=== PATIENT | male | born 2005 | race Two or more races ===

== ENCOUNTER 2025-02-04 20:53 | Emergency (ER) | payer OTHER ==
[~2025-02-04] VITALS: Ht 190.5 cm; Wt 187.7 kg
--- NOTE | 2025-02-04 22:20 | ED.PDOC ---
History of Present Illness HPI Comments 19-year-old male who came to ER for alcohol intoxication. Patient known alcohol drinker, usually drinks 12 pack/day of beer. Has been binge drinking the past 2- 3 weeks. Last alcohol intake was 3 days ago and since then he has been having tremors and visual hallucination, and sensations of "I wanna kill myself". Patient appears anxious at this time. States he wants some help to stop drinking. Chief Complaint: Withdrawal Time Seen by MD: 22:19 Reviewed Notes: Nurses Notes Allergies: Coded Allergies: No Known Drug Allergy (Verified Allergy, Unknown, 02/04/25) Information Source: Patient Mode of Arrival: Ambulatory Severity: Moderate Timing: Days Duration: Intermittent Past Medical History PAST MEDICAL HISTORY: Denies Surgical History: Denies all surgeries Family History Family History: Reviewed,noncontributory to illness Social History Smoker: Non-Smoker Alcohol: Heavy Drugs: Denies Drug Use Lives In: Home Constitutional: denies: chills, diaphoresis, fatigue, fever, malaise, sweats, weakness, others EENTM: denies: blurred vision, double vision, ear bleeding, ear discharge, ear drainage, ear pain, ear ringing, eye pain, eye redness, hearing loss, mouth pain, mouth swelling, nasal discharge, nose bleeding, nose congestion, nose pain, photophobia, tearing, throat pain, throat swelling, voice changes, others Respiratory: denies: cough, hemoptysis, orthopnea, SOB at rest, shortness of breath, SOB with excertion, stridor, wheezing, others Cardiovascular: denies: chest pain, dizzy spells, diaphoresis, Dyspnea on exertion, edema, irregular heart beat, left arm pain, lightheadedness, palpit ations, PND, syncope, others Gastrointestinal: denies: abdomen distended, abdominal pain, blood streaked b owels, constipated, diarrhea, dysphagia, difficulty swallowing, hematemesis, melena, nausea, poor appetite, poor fluid intake, rectal bleeding, rectal pain, vomiting, others Genitourinary: denies: burning, dysuria, flank pain, frequency, hematuria, incontinence, penile discharge, penile sore, pain, testicle pain, testicle swelling, urgency, others Neurological: reports: tremors; denies: dizziness, fainting, headache, left sided numbness, left sided weakness, numbness, paresthesia, pre-existing deficit, right sided numbness, right sided weakness, seizure, speech problems, tingling, weakness, others Musculoskeletal: denies: back pain, gout, joint pain, joint swelling, muscle pain, muscle stiffness, neck pain, others Integumetry: denies: bruises, change in color, change in hair/nails, dryness, laceration, lesions, lumps, rash, wounds, others Allergic/Immunocompromised: denies: Difficulty Healing, Frequent Infections, Hives, Itching, others Hematologic/Lymphatic: denies: anemia, blood clots, easy bleeding, easy bruising, swollen glands, others Endocrine: denies: excessive hunger, excessive sweating, excessive thirst, excessive urination, flushing, intolerance to cold, intolerance to heat, unexplained weight gain, unexplained weight loss, others Psychiatric: reports: anxiety; denies: bipolar disorder, depression, hopeless, panic disorder, schizophrenia, sleepless, suicidal, others Physical Exam General Appearance: No Apparent Distress, Normal HEENT: Normal ENT Inspection, Pharynx Normal, TMs Normal Neck: Full Range of Motion, Non-Tender, Normal, Normal Inspection Respiratory: Chest Non-Tender, Lungs Clear, No Accessory Muscle Use, No Respiratory Distress, Normal Breath Sounds Cardiovascular: No Edema, No JVD, No Murmur, No Gallop, Normal Peripheral Pulses, Regular Rate/Rhythm Breast Exam: Deferred Gastrointestinal: No Organomegaly, Non Tender, No Pulsatile Mass, Normal Bowel Sounds, Soft Genitalia: Deferred Pelvic: Deferred Rectal: Deferred Extremities: No calf tenderness, Normal capillary refill, Normal inspection, Normal range of motion, Non-tender, No pedal edema Musculoskeletal : Apperance: Normal Neurologic: Alert, digital imaging specialist II-XII nml as Tested, No Motor Deficits, Normal Affect, Normal Mood, No Sensory Deficits Cerebellar Function: Normal Reflexes: Normal Skin: Dry, Normal Color, Warm Lymphatic: No Adenopathy Was a procedure done? Was a procedure done?: No Differential Dx Considerations may include: anxiety, alcohol intoxication, alcohol withdrawals X-Ray, Labs, Meds, VS Vital Signs Date Time Temp Pulse Resp B/P (MAP) Pulse Ox O2 Delivery O2 Flow Rate FiO2 02/04/25 22:45 99.4 114 18 151/94 (113) 97 99.4 02/04/25 22:45 114 18 Room Air* 0 21 02/04/25 22:24 99.4 114 18 151/94 (113) 97 99.4 Lab Test 02/04/25 22:42 02/04/25 22:14 Range/Units Urine Color Dark-orange Yellow Urine Clarity Turbid H Clear Urine pH 6.5 5.0-9.0 Urine Specific [place] 1.037 H 1.001-1.035 Urine Protein 2+ H Negative Urine Ketones 1+ H Negative Urine Blood Negative Negative /uL Urine Nitrite Negative Negative Urine Bilirubin 1+ Negative Urine Urobilinogen Over Negative mg/dL Urine Leukocyte Esterase Negative Negative /uL Urine RBC 1 0 - 3 /hpf Urine Microscopic WBC 4 H 0-3 /HPF Urine Squamous Epithelial Cells Few <5 /hpf Urine Bacteria None seen None Seen /hpf Urine Hyaline Casts Few 0 - 2 /lpf Urine Mucus Few None Seen Urine Glucose Trace Normal mg/dL White Blood Count 8.8 4.4-10.8 10^3/uL Red Blood Count 5.34 4.5-5.90 10^6/uL Hemoglobin 17.3 13.5-17.5 g/dL Hematocrit 51.4 41.0-53.0 % Mean Corpuscular Volume 96.3 80.0-100.0 fL Mean Corpuscular Hemoglobin 32.4 H 28.0-32.0 pg Mean Corpuscular Hemoglobin Concent 33.7 32.0-36.0 g/dL Red Cell Distribution Width 14.0 11.8-14.3 % Platelet Count 214 140-450 10^3/uL Mean Platelet Volume 8.6 6.9-10.8 fL Neutrophils (%) (Auto) 69.5 37.0-80.0 % Lymphocytes (%) (Auto) 19.3 10.0-50.0 % Monocytes (%) (Auto) 10.1 0.0-12.0 % Eosinophils (%) (Auto) 0.5 0.0-7.0 % Basophils (%) (Auto) 0.6 0.0-2.0 % Neutrophils # (Auto) 6.1 1.6-8.6 10 ^3/uL Lymphocytes # (Auto) 1.7 0.4-5.4 10 ^3/uL Monocytes # (Auto) 0.9 0-1.3 10 ^3/uL Eosinophils # (Auto) 0 0-0.8 10 ^3/uL Basophils # (Auto) 0.1 0-0.2 10 ^3/uL Nucleated Red Blood Cells 0.1 % Sodium Level 141 136-145 mmol/L Potassium Level 3.9 3.5-5.1 mmol/L Chloride Level 106 98-107 mmol/L Carbon Dioxide Level 24 20-31 mmol/L Anion Gap 11 5-15 Blood Urea Nitrogen 8 L 9-23 mg/dL Creatinine 0.91 0.700-1.30 mg/dL Glomerular Filtration Rate Calc 123 >90 mL/min BUN/Creatinine Ratio 8.8 L 10.0-20.0 Serum Glucose 96 74-106 mg/dL Calcium Level 10.4 8.7-10.4 mg/dL Plasma/Serum Blood Alcohol < 3.0 <10 mg/dL Current Medications Medications (Trade) Dose Ordered Sig/Nasra Route Start Time Stop Time Status Last Admin Chlordiazepoxide HCl (Librium Capsule) 25 mg ONCE ONCE PO 02/04/25 22:15 02/04/25 22:16 DC 02/04/25 22:49 Lorazepam (Ativan Tablet) 1 mg ONCE ONCE PO 02/04/25 23:30 02/04/25 23:34 DC 02/04/25 23:51 Time of 1ST Reevaluation: 22:12 Reevaluation 1ST: Unchanged Patient Education/Counseling: Diagnosis, Treatment Family Education/Counseling: No Family Present Departure 1 Departure Time of Disposition: 00:40 (Patient with signs of building alcohol tolerance. We will discharge patient with Librium and outpatient follow up) Impression: Primary Impression: Alcohol dependence Qualified Codes: F10.20 - Alcohol dependence, uncomplicated Disposition: 01 HOME / SELF CARE / HOMELESS Condition: Stable Additional Instructions: You were given librium to help with your symptoms. It is important to stay well rested and well hydrated. If you need help quitting you can call (HELP). If your symptoms worsen or you have any other concerns then please return to the ER. Discharged With: Self Critical Care Note Critical Care Time?: No Stability Stability form required: No Heart Score Heart Score: Heart Score Response (Comments) Value History N/A 0 EKG N/A 0 Age N/A 0 Risk Factors N/A 0 Troponin N/A 0 Total 0 I personally scribed for CLEMNETE,NATALYA B MD ([email or web address]) on 02/04/25 at 22:20. Electronically submitted by Gomez Ulloa ([email or web address]). NATALYA CLEMENTE MD Feb 04, 2025 22:20
[2025-02-04 22:43] LABS: Urine Bacteria None Seen /hpf (None Seen)
[2025-02-04 22:45] VITALS: BP 151/94; PULSE 114; RESP 18; TEMP 99.4; O2SAT 97
[2025-02-04] MEDS: chlordiazePOXIDE HCL 25 MG CAP PO ONE (22:49)
[2025-02-04 22:51] LABS: Basophils # (auto) 0.1 10 ^3/uL (0-0.2); Basophils % (auto) 0.6 % (0.0-2.0); Eosinophils # (auto) 0 10 ^3/uL (0-0.8); Eosinophils % (auto) 0.5 % (0.0-7.0); Hematocrit 51.4 % (41.0-53.0); Hemoglobin 17.3 g/dL (13.5-17.5); Lymphocytes # (auto) 1.7 10 ^3/uL (0.4-5.4); Lymphocytes % (auto) 19.3 % (10.0-50.0); Mean Corpuscular Hemoglobin 32.4 pg (28.0-32.0); Mean Corpuscular Hgb Conc. 33.7 g/dL (32.0-36.0); Mean Corpuscular Volume 96.3 fL (80.0-100.0); Monocytes # (auto) 0.9 10 ^3/uL (0-1.3); Monocytes % (auto) 10.1 % (0.0-12.0); Neutrophils # (auto) 6.1 10 ^3/uL (1.6-8.6); Neutrophils % (auto) 69.5 % (37.0-80.0); Nucleated Red Blood Cells % 0.1 %; Platelet Count (auto) 214 10^3/uL (140-450); Red Blood Cells 5.34 10^6/uL (4.5-5.90); White Blood Cell 8.8 10^3/uL (4.4-10.8)
[2025-02-04 23:02] LABS: Chloride 106 mmol/L (98-107); Potassium 3.9 mmol/L (3.5-5.1); Sodium 141 mmol/L (136-145)
[2025-02-04 23:03] LABS: Anion Gap 11 (5-15); Carbon Dioxide 24 mmol/L (20-31)
[2025-02-04 23:08] LABS: BUN/Creatinine Ratio 8.8 (10.0-20.0); Glucose 96 mg/dL (74-106)
[2025-02-04 23:12] LABS: Blood Urea Nitrogen 8 mg/dL (9-23); Calcium 10.4 mg/dL (8.7-10.4)
[2025-02-04 23:16] LABS: Urine Blood Negative /uL (Negative); Urine Clarity Turbid (Clear); Urine Color Dark-Orange (Yellow); Urine Hyaline Cast FEW /lpf (0 - 2); Urine Mucus FEW (None Seen); Urine Protein, UAD 2+ (Negative); Urine Specific Gravity 1.037 (1.001-1.035); Urine Squamous Epithelial Cell FEW /hpf (<5); Urine Urobilinogen OVER mg/dL (Negative); Urine WBC 4 /HPF (0-3); Urine pH 6.5 (5.0-9.0)
[2025-02-04 23:22] LABS: Blood Alcohol < 3.0 mg/dL (<10)
[2025-02-04] MEDS: LORazepam 0.5 MG TAB PO ONE (23:51)
[2025-02-04] MEDS: LORazepam 0.5 MG TAB ONE (23:55)
== END 2025-02-05 00:51 | disposition home or self-care (01) ==
LOC: ER 20:53
DX: F10.229 Alcohol dependence with intoxication, unspecified (principal)
CPT/HCPCS: 36415; 80048; 80320; 81001; 85025

== ENCOUNTER 2025-03-29 00:28 | Emergency (ER) | payer OTHER ==
[~2025-03-29] VITALS: Ht 190.5 cm; Wt 172.7 kg
--- NOTE | 2025-03-29 01:16 | ED.PDOC ---
History of Present Illness HPI Comments 20 y/o morbidly obese M, with no significant history, presents with c/o nonradiating, epigastric abdominal pain, with associated nausea, vomiting, and anxiety, since 1100, yesterday morning. Reports on unprovoked onset, with no recent travel, spoiled food intake, injuries, or substance use. Describes it as tight in quality. Pain worsens after eating or touching epigastric region. Denies on having any bloody or biliary vomitus, diarrhea, constipation, fever, chills, or further associated symptoms. Time Seen by MD: 01:00 Reviewed Notes: Nurses Notes, Medications, Allergies Allergies: Coded Allergies: No Known Drug Allergy (Verified Allergy, Unknown, 02/04/25) Information Source: Patient Mode of Arrival: Ambulatory Severity: Moderate Timing: Hours Duration: Since onset Prehospital treatment: None Past Medical History PAST MEDICAL HISTORY: Denies Surgical History: Tonsillectomy Family History Family History: Reviewed,noncontributory to illness Social History Smoker: Non-Smoker Alcohol: Heavy Drugs: Denies Drug Use Lives In: Home All Other Systems: Reviewed and Negative (Comprehensive systems review obtained and negative except for what is stated in the HPI.) Physical Exam General Appearance: No Apparent Distress, Obese HEENT: Normal ENT Inspection, Pharynx Normal, TMs Normal Neck: Full Range of Motion, Non-Tender, Normal, Normal Inspection Respiratory: Chest Non-Tender, Lungs Clear, No Accessory Muscle Use, No Respiratory Distress, Normal Breath Sounds Cardiovascular: No Edema, No JVD, No Murmur, No Gallop, Normal Peripheral Pulses, Regular Rate/Rhythm Breast Exam: Deferred Gastrointestinal: Epigastric (tenderness ), No Organomegaly, No Pulsatile Mass, Normal Bowel Sounds, Soft, Tenderness (epigastric ) Genitalia: Deferred Pelvic: Deferred Rectal: Deferred Extremities: No calf tenderness, Normal capillary refill, Normal inspection, Normal range of motion, Non-tender, No pedal edema Musculoskeletal : Apperance: Normal Neurologic: Alert, events administrative assistant II-XII nml as Tested, No Motor Deficits, Normal Affect, Normal Mood, No Sensory Deficits Cerebellar Function: Normal Reflexes: Normal Skin: Dry, Normal Color, Warm Lymphatic: No Adenopathy Was a procedure done? Was a procedure done?: No Differential Dx Considerations may include: gastritis, gastroenteritis, GERD, PUD, spoiled food, cholelithiasis, cholecystitis, among others X-Ray, Labs, Meds, VS Vital Signs Date Time Temp Pulse Resp B/P (MAP) Pulse Ox O2 Delivery O2 Flow Rate FiO2 03/29/25 00:45 98.4 111 18 148/88 (108) 96 98.4 Lab Test 03/29/25 01:35 03/29/25 01:10 Range/Units White Blood Count 10.3 4.4-10.8 10^3/uL Red Blood Count 4.85 4.5-5.90 10^6/uL Hemoglobin 15.7 13.5-17.5 g/dL Hematocrit 46.3 41.0-53.0 % Mean Corpuscular Volume 95.4 80.0-100.0 fL Mean Corpuscular Hemoglobin 32.5 H 28.0-32.0 pg Mean Corpuscular Hemoglobin Concent 34.0 32.0-36.0 g/dL Red Cell Distribution Width 14.1 11.8-14.3 % Platelet Count 372 140-450 10^3/uL Mean Platelet Volume 7.7 6.9-10.8 fL Neutrophils (%) (Auto) 68.7 37.0-80.0 % Lymphocytes (%) (Auto) 18.5 10.0-50.0 % Monocytes (%) (Auto) 10.8 0.0-12.0 % Eosinophils (%) (Auto) 0.7 0.0-7.0 % Basophils (%) (Auto) 1.3 0.0-2.0 % Neutrophils # (Auto) 7.0 1.6-8.6 10 ^3/uL Lymphocytes # (Auto) 1.9 0.4-5.4 10 ^3/uL Monocytes # (Auto) 1.1 0-1.3 10 ^3/uL Eosinophils # (Auto) 0.1 0-0.8 10 ^3/uL Basophils # (Auto) 0.1 0-0.2 10 ^3/uL Nucleated Red Blood Cells 0.0 % Sodium Level 138 136-145 mmol/L Potassium Level 4.0 3.5-5.1 mmol/L Chloride Level 104 98-107 mmol/L Carbon Dioxide Level 25 20-31 mmol/L Anion Gap 9 5-15 Blood Urea Nitrogen 9 9-23 mg/dL Creatinine 0.73 0.700-1.30 mg/dL Glomerular Filtration Rate Calc 132 >90 mL/min BUN/Creatinine Ratio 12.3 10.0-20.0 Serum Glucose 111 H 74-106 mg/dL Calcium Level 9.5 8.7-10.4 mg/dL Total Bilirubin 0.7 0.2-1.0 mg/dL Aspartate Amino Transferase (AST) 209 H 13-40 U/L Alanine Aminotransferase (ALT) 104 H 7-40 U/L Alkaline Phosphatase 73 46-116 U/L Total Protein 7.7 5.7-8.2 g/dL Albumin 4.7 3.2-4.8 g/dL Lipase 66 H 12-53 U/L Urine Color Light-yellow Yellow Urine Clarity Clear Clear Urine pH 6.5 5.0-9.0 Urine Specific [place] 1.013 1.001-1.035 Urine Protein Negative Negative Urine Ketones Negative Negative Urine Blood Negative Negative /uL Urine Nitrite Negative Negative Urine Bilirubin Negative Negative Urine Urobilinogen Normal Negative mg/dL Urine Leukocyte Esterase Negative Negative /uL Urine RBC <1 0 - 3 /hpf Urine Microscopic WBC < 1 0-3 /HPF Urine Squamous Epithelial Cells None seen <5 /hpf Urine Bacteria None seen None Seen /hpf Urine Glucose Normal Normal mg/dL [place] [id number] Ph: [phone] DIAGNOSTIC IMAGING Diagnostic Imaging Report : [id number] Signed PATIENT: JOHANA BREAUX ACCT: [id number] UNIT: [id number] : 2005 LOC: ER ROOM / BED: / AGE / SEX: 20 / M ADM STATUS: REG ER SERVICE 0111 ORDERING PHYSICIAN: ALONDRA MARTIN MD PROCEDURE(s): ABPL - CT AB PEL WO CON-NO ORAL OR IV REASON: abd pain ORDER NUMBER(s): [id number], ACCESSION NUMBER(s): [id number] CLINICAL HISTORY: abd pain TECHNIQUE: CT of the abdomen and pelvis was performed without intravenous contrast. This exam was performed according to our departmental dose optimization program. Up-to-date CT equipment and radiation dose reduction techniques are utilized as appropriate. CTDI: 27.88 DLP: 1672.18 WID: COMPARISON: None FINDINGS: Lower Thorax: Unremarkable. Liver and Biliary system: Hepatomegaly measuring 20 cm craniocaudal. No definite hepatic lesion. Mildly dilated gallbladder with mild pericholecystic stranding towards the gallbladder neck. No biliary ductal dilatation. Spleen: Unremarkable. Adrenal Glands and Kidneys: Unremarkable. Pancreas and Retroperitoneum: No retroperitoneal lymphadenopathy. Grossly unremarkable pancreas. There is mild periportal lymphadenopathy. Aorta and Major Vessels: Unremarkable. Bowel, Mesentery and Peritoneal space: Unremarkable. Pelvis: Unremarkable. Abdominal wall and Osseous Structures: No destructive osseous lesion. IMPRESSION: Mildly dilated gallbladder with mild pericholecystic stranding concerning for acute cholecystitis. Recommend obtaining right upper quadrant ultrasound for characterization. ATED BY: RITIKA RAMIRES MD DICTATED DATE/TIME: 03/29/25144 SIGNED BY: RITIKA RAMIRES MD SIGNED DATE/TIME: 03/29/25144 CC: Time of 1ST Reevaluation: 01:30 Reevaluation 1ST: Unchanged Patient Education/Counseling: Diagnosis, Treatment, Need For Follow Up Family Education/Counseling: No Family Present Departure 1 Departure Time of Disposition: 02:32 Impression: Primary Impression: Cholecystitis Additional Impression: Acute pancreatitis Disposition: 09 ADMITTED INPATIENT Condition: Guarded Discharged With: Self Comments Epigastric Pain with Acute Cholecystitis Chief Complaint: Epigastric abdominal pain with nausea and vomiting History of Present Illness: 20-year-old male presents with one day history of epigastric abdominal pain accompanied by nausea and vomiting. Patient has a history of regular alcohol use which may be contributory to his current presentation. Symptoms have been present for approximately 24 hours. Review of Systems: Positive for: - Gastrointestinal: Epigastric pain, nausea, vomiting All other systems reviewed and negative Lab Results: Liver Function Tests: - AST: 209 (Elevated) - ALT: 104 (Elevated) - Total Bilirubin: 0.7 (Normal) Other Labs: - Lipase: 66 (Slightly elevated) - WBC: 10.3 (Normal) Imaging and Other Relevant Results: CT Abdomen/Pelvis: - Demonstrates gallstones - Pericholecystic stranding concerning for cholecystitis Ultrasound Gallbladder: - Ordered, pending results Medical Decision Making: Summary Statement: 20-year-old male with acute onset epigastric pain, elevated liver enzymes, and CT findings consistent with acute cholecystitis Problem List: 1. Acute cholecystitis 2. Elevated liver enzymes 3. Regular alcohol use Differential Diagnosis: 1. Acute cholecystitis 2. Alcoholic hepatitis 3. Acute pancreatitis 4. Gastritis ED Course: Patient received IV Zosyn antibiotics and IV fluids. Imaging confirmed likely cholecystitis. Transfer arranged to [facility] for surgical evaluation. Assessment and Plan: 1. Acute Cholecystitis: - Confirmed by CT showing gallstones and pericholecystic stranding - Started on IV Zosyn for broad-spectrum antibiotic coverage - IV fluid hydration initiated - Transfer arranged to [facility] for surgical evaluation and possible cholecystectomy 2. Elevated Liver Enzymes: - Likely multifactorial due to acute cholecystitis and alcohol use - Will require follow-up monitoring 3. Disposition: - Transfer to [facility] for higher level of care and surgical evaluation Billing Information: ICD-10: K81.0 - Acute cholecystitis ICD-10: R74.0 - Elevation of levels of transaminase and lactic acid dehydrogenase Critical Care Note Critical Care Time?: Yes (35 min-critical care time only) Critical care comment: Total critical care time: Approximately 36 minutes Due to a high probability of clinically significant, life threatening deteriora tion, the patient required my highest level of preparedness to intervene emergently and I personally spent this critical care time directly and personally managing the patient. This critical care time included obtaining a history; examining the patient; pulse oximetry; ordering and review of studies; arranging urgent treatment with development of a management plan; evaluation of patient's response to treatment; frequent reassessment; and, discussions with other providers. This critical care time was performed to assess and manage the high probability of imminent, life-threatening deterioration that could result in multi-organ failure. It was exclusive of separately billable procedures and treating other patients. Stability Stability form required: No Heart Score Heart Score: Heart Score Response (Comments) Value History N/A 0 EKG N/A 0 Age N/A 0 Risk Factors N/A 0 Troponin N/A 0 Total 0 I personally scribed for ALONDRA MARTIN MD ([email or web address]) on 03/29/25 at 01:16. Electronically submitted by Christ Martinez ([email or web address]). I personally scribed for ALONDRA MARTIN MD ([email or web address]) on 03/29/25 at 02:09. Electronically submitted by Christ Martinez ([email or web address]). ALONDRA MARTIN MD March 29, 2025 01:16
[2025-03-29 01:44] LABS: Urine Bacteria None Seen /hpf (None Seen)
--- NOTE | 2025-03-29 01:47 | DVH ---
CLINICAL HISTORY: abd pain TECHNIQUE: CT of the abdomen and pelvis was performed without intravenous contrast. This exam was per formed according to our departmental dose optimization program. Up-to-date CT equipment and radiation dose reduction techniques are utilized as appropriate. CTDI: 27.88 DLP: 1672.18 WID: COMPARISON: None FINDINGS: Lower Thorax: Unremarkable. Liver and Biliary system: Hepatomegaly measuring 20 cm craniocaudal. No definite hepatic lesion. Mild ly dilated gallbladder with mild pericholecystic stranding towards the gallbladder neck. No biliary d uctal dilatation. Spleen: Unremarkable. Adrenal Glands and Kidneys: Unremarkable. Pancreas and Retroperitoneum: No retroperitoneal lymphadenopathy. Grossly unremarkable pancreas. Th ere is mild periportal lymphadenopathy. Aorta and Major Vessels: Unremarkable. Bowel, Mesentery and Peritoneal space: Unremarkable. Pelvis: Unremarkable. Abdominal wall and Osseous Structures: No destructive osseous lesion. IMPRESSION: Mildly dilated gallbladder with mild pericholecystic stranding concerning for acute cholecystitis. R ecommend obtaining right upper quadrant ultrasound for characterization.
[2025-03-29 01:54] LABS: Basophils # (auto) 0.1 10 ^3/uL (0-0.2); Basophils % (auto) 1.3 % (0.0-2.0); Eosinophils # (auto) 0.1 10 ^3/uL (0-0.8); Eosinophils % (auto) 0.7 % (0.0-7.0); Hematocrit 46.3 % (41.0-53.0); Hemoglobin 15.7 g/dL (13.5-17.5); Lymphocytes # (auto) 1.9 10 ^3/uL (0.4-5.4); Lymphocytes % (auto) 18.5 % (10.0-50.0); Mean Corpuscular Hemoglobin 32.5 pg (28.0-32.0); Mean Corpuscular Volume 95.4 fL (80.0-100.0); Monocytes # (auto) 1.1 10 ^3/uL (0-1.3); Monocytes % (auto) 10.8 % (0.0-12.0); Neutrophils % (auto) 68.7 % (37.0-80.0); Platelet Count (auto) 372 10^3/uL (140-450); Red Blood Cells 4.85 10^6/uL (4.5-5.90); Red Cell Distribution Width 14.1 % (11.8-14.3); White Blood Cell 10.3 10^3/uL (4.4-10.8)
[2025-03-29 01:58] LABS: Urine Blood Negative /uL (Negative); Urine Clarity Clear (Clear); Urine Color Light-Yellow (Yellow); Urine Protein, UAD Negative (Negative); Urine Specific Gravity 1.013 (1.001-1.035); Urine Squamous Epithelial Cell None Seen /hpf (<5); Urine Urobilinogen Normal (Negative); Urine WBC < 1 /HPF (0-3); Urine pH 6.5 (5.0-9.0)
[2025-03-29 02:06] LABS: Alanine Aminotransferase 104 U/L (7-40); Albumin 4.7 g/dL (3.2-4.8); Alkaline Phosphatase 73 U/L (46-116); Anion Gap 9 (5-15); Aspartate Aminotransferase 209 U/L (13-40); BUN/Creatinine Ratio 12.3 (10.0-20.0); Bilirubin, Total 0.7 mg/dL (0.2-1.0); Blood Urea Nitrogen 9 mg/dL (9-23); Calcium 9.5 mg/dL (8.7-10.4); Carbon Dioxide 25 mmol/L (20-31); Chloride 104 mmol/L (98-107); Glucose 111 mg/dL (74-106); Lipase 66 U/L (12-53); Sodium 138 mmol/L (136-145); Total Protein 7.7 g/dL (5.7-8.2)
--- NOTE | 2025-03-29 02:58 | DVH ---
INDICATION: abd pain TECHNIQUE: Multiple real-time sonographic images were obtained of the right upper quadrant. COMPARISON: None FINDINGS: The liver demonstrates diffusely echogenic echotexture without focal mass lesions. The live r measures 17.8 cm. Normal hepatopetal portal flow appreciated. No evidence of pleural effusion or ab dominal ascites. There is no intrahepatic or extrahepatic ductal dilatation. The common duct measures 0.3 cm. The gallbladder is without evidence of stone or sludge. The gallbladder wall is mildly thickened, sofi suring up to 0.4 cm. Negative sonographic Lucas's sign The right kidney measures 13.9 cm. The right kidney is normal in contour, size, and shape. The echoge nicity is normal. There is no hydronephrosis. The pancreas is not well visualized due to overlying bowel gas. IMPRESSION: 1. Hepatic steatosis. 2. Nonspecific borderline gallbladder wall thickening.
[2025-03-29] MEDS: ONDANSETRON ODT 4 MG TAB PO ONE (04:56)
[2025-03-29] MEDS: SODIUM CHLORIDE 0.9% 1,000 ML IVB ONE (05:02)
[2025-03-29] MEDS: KETOROLAC TROMETH 30 MG/ML 1ML VIAL IV ONE (05:06)
[2025-03-29] MEDS: MAALOX PLUS or MAALOX 30 ML PO ONE (05:07)
[2025-03-29] MEDS: FAMOTIDINE 20 MG TAB PO ONE (05:07)
[2025-03-29] MEDS: PIPERACILLIN-TAZOB 3.375GM 100 ML IV ONE (05:34)
[2025-03-29 07:27] VITALS: BP 147/92; TEMP 98.7
[2025-03-29 07:29] VITALS: PULSE 95; RESP 18; O2SAT 95
== END 2025-03-29 07:30 | disposition short-term general hospital (02) ==
LOC: ER 00:28
DX: K81.9 Cholecystitis, unspecified (principal); K85.90 Acute pancreatitis without necrosis or infection, unspecified; E66.01 Morbid (severe) obesity due to excess calories; Z90.89 Acquired absence of other organs
CPT/HCPCS: 36415; 74176; 76705; 80053; 81001; 83605; 83690; 85025; 87040; 96361; 96365; 96375; 99285; J1885; J2543; J7030

== ENCOUNTER 2025-04-20 09:47 | Emergency (ER) | payer MEDICAID, OTHER ==
[~2025-04-20] VITALS: Ht 180.3 cm; Wt 118.0 kg
[2025-04-20] MEDS: SODIUM CHLORIDE 0.9% 1,000 ML IV ONE (10:20)
[2025-04-20 10:22] LABS: Basophils # (auto) 0.1 10 ^3/uL (0-0.2); Basophils % (auto) 1.1 % (0.0-2.0); Eosinophils # (auto) 0 10 ^3/uL (0-0.8); Hematocrit 46.9 % (41.0-53.0); Hemoglobin 16.3 g/dL (13.5-17.5); Lymphocytes # (auto) 1.4 10 ^3/uL (0.4-5.4); Lymphocytes % (auto) 20.8 % (10.0-50.0); Mean Corpuscular Hgb Conc. 34.6 g/dL (32.0-36.0); Mean Corpuscular Volume 92.4 fL (80.0-100.0); Monocytes # (auto) 0.6 10 ^3/uL (0-1.3); Monocytes % (auto) 9.3 % (0.0-12.0); Neutrophils # (auto) 4.5 10 ^3/uL (1.6-8.6); Neutrophils % (auto) 68.8 % (37.0-80.0); Nucleated Red Blood Cells % 0.1 %; Platelet Count (auto) 255 10^3/uL (140-450); Red Blood Cells 5.08 10^6/uL (4.5-5.90); Red Cell Distribution Width 14.3 % (11.8-14.3); White Blood Cell 6.6 10^3/uL (4.4-10.8)
[2025-04-20] MEDS: LORazepam 2MG/ML-1ML VIAL IV ONE (10:24)
--- NOTE | 2025-04-20 10:30 | ED.PDOC ---
Psychiatric HPI Comments 20 y.o male with PMHx of ETOH abuse, presents to the ED for an evaluation of withdrawals. Patient reports heavy ETOH drinking for the past 5 days straight, states he "goes a while" without drinking but when he starts up again, he is unable to stop. Patient reports recent stress factors and states he feels depression but no SI or HI noted. Patient has no history of SI or psychiatric illnesses. Patient complains of nausea and vomiting. EMS reports last drink patient had was at 0100. No other symptoms or pain reported. Chief Complaint: Nausea/Vomiting Time Seen by MD: 09:52 Reviewed Notes: Nurses Notes, Shoe Repairer Notes, Medications, Allergies Information Source: Patient, Emergency Med Personnel Mode of Arrival: EMS Severity of Pain: None Severity of Mental Status: Moderate Severity of Symptoms: Moderate Timing: Days Duration: Since onset Presents with: Depression Ingestion: Intentional, ETOH Circumstance: Withdrawal Symptoms Current substance abuse: ETOH Stressors: None History of: ETOH Withdrawl Associated signs and symptoms: Depression, Nausea, Vomiting Past Medical History PAST MEDICAL HISTORY: Denies Surgical History: Tonsillectomy Family History Family History: Reviewed,noncontributory to illness Social History Smoker: Non-Smoker Alcohol: Heavy Drugs: Denies Drug Use Lives In: Home Constitutional: denies: chills, diaphoresis, fatigue, fever, malaise, sweats, weakness, others EENTM: denies: blurred vision, double vision, ear bleeding, ear discharge, ear drainage, ear pain, ear ringing, eye pain, eye redness, hearing loss, mouth pain, mouth swelling, nasal discharge, nose bleeding, nose congestion, nose pain, photophobia, tearing, throat pain, throat swelling, voice changes, others Respiratory: denies: cough, hemoptysis, orthopnea, SOB at rest, shortness of breath, SOB with excertion, stridor, wheezing, others Cardiovascular: denies: chest pain, dizzy spells, diaphoresis, Dyspnea on exertion, edema, irregular heart beat, left arm pain, lightheadedness, palpitations, PND, syncope, others Gastrointestinal: reports: nausea, vomiting; denies: abdomen distended, abdominal pain, blood streaked bowels, constipated, diarrhea, dysphagia, di fficulty swallowing, hematemesis, melena, poor appetite, poor fluid intake, rectal bleeding, rectal pain, others Genitourinary: denies: burning, dysuria, flank pain, frequency, hematuria, incontinence, penile discharge, penile sore, pain, testicle pain, testicle swelling, urgency, others Neurological: denies: dizziness, fainting, headache, left sided numbness, left sided weakness, numbness, paresthesia, pre-existing deficit, right sided numbness, right sided weakness, seizure, speech problems, tingling, tremors, weakness, others Musculoskeletal: denies: back pain, gout, joint pain, joint swelling, muscle pain, muscle stiffness, neck pain, others Integumetry: denies: bruises, change in color, change in hair/nails, dryness, laceration, lesions, lumps, rash, wounds, others Allergic/Immunocompromised: denies: Difficulty Healing, Frequent Infections, Hives, Itching, others Endocrine: denies: excessive hunger, excessive sweating, excessive thirst, excessive urination, flushing, intolerance to cold, intolerance to heat, unexplained weight gain, unexplained weight loss, others Psychiatric: reports: depression; denies: anxiety, bipolar disorder, hopeless, panic disorder, schizophrenia, sleepless, suicidal, others Physical Exam General Appearance: Moderate Distress HEENT: Normal ENT Inspection, Pharynx Normal, TMs Normal Neck: Full Range of Motion, Non-Tender, Normal, Normal Inspection Respiratory: Chest Non-Tender, Lungs Clear, No Accessory Muscle Use, No Respiratory Distress, Normal Breath Sounds Cardiovascular: No Edema, No JVD, No Murmur, No Gallop, Normal Peripheral Pulses, Regular Rate/Rhythm Breast Exam: Deferred Gastrointestinal: No Organomegaly, Non Tender, No Pulsatile Mass, Normal Bowel Sounds, Soft Genitalia: Deferred Pelvic: Deferred Rectal: Deferred Extremities: No calf tenderness, Normal capillary refill, Normal inspection, Normal range of motion, Non-tender, No pedal edema Musculoskeletal : Apperance: Normal Neurologic: Alert, cage shift manager II-XII nml as Tested, No Motor Deficits, Normal Affect, Normal Mood, No Sensory Deficits Cerebellar Function: Normal Reflexes: Normal Skin: Dry, Normal Color, Warm Peripheral Pulses: 3+ Radial (R), 3+ Radial (L) Lymphatic: No Adenopathy EKG EKG : Pulse Rate (adult): 128 Cardiac Rhythm: ST Was a procedure done? Was a procedure done?: No Psych Differential Dx Psych. Differential Dx: Anxiety, Depression Intoxication Differential Dx: Alcohol Withdraw Syndrome, Dehydration, Depression, Electrolyte Imbalance, Thiamine Deficiency X-Ray, Labs, Meds, VS Vital Signs Date Time Temp Pulse Resp B/P (MAP) Pulse Ox O2 Delivery O2 Flow Rate FiO2 04/20/25 10:50 Room Air* 0 21 04/20/25 10:30 128 04/20/25 10:25 98.6 130 16 136/64 (88) 96 98.6 04/20/25 10:25 98.6 126 18 130/77 (94) 93 98.6 04/20/25 10:07 128 Lab Test 04/20/25 10:36 04/20/25 10:12 Range/Units Urine Color Yellow Yellow Urine Clarity Clear Clear Urine pH 6.5 5.0-9.0 Urine Specific [place] 1.021 1.001-1.035 Urine Protein 1+ H Negative Urine Ketones 1+ H Negative Urine Blood Negative Negative /uL Urine Nitrite Negative Negative Urine Bilirubin Negative Negative Urine Urobilinogen 8 H Negative mg/dL Urine Leukocyte Esterase Negative Negative /uL Urine RBC 1 0 - 3 /hpf Urine Microscopic WBC 2 0-3 /HPF Urine Squamous Epithelial Cells None seen <5 /hpf Urine Bacteria None seen None Seen /hpf Urine Hyaline Casts Mod 0 - 2 /lpf Urine Mucus Few None Seen Urine Glucose Normal Normal mg/dL White Blood Count 6.6 4.4-10.8 10^3/uL Red Blood Count 5.08 4.5-5.90 10^6/uL Hemoglobin 16.3 13.5-17.5 g/dL Hematocrit 46.9 41.0-53.0 % Mean Corpuscular Volume 92.4 80.0-100.0 fL Mean Corpuscular Hemoglobin 32.0 28.0-32.0 pg Mean Corpuscular Hemoglobin Concent 34.6 32.0-36.0 g/dL Red Cell Distribution Width 14.3 11.8-14.3 % Platelet Count 255 140-450 10^3/uL Mean Platelet Volume 7.8 6.9-10.8 fL Neutrophils (%) (Auto) 68.8 37.0-80.0 % Lymphocytes (%) (Auto) 20.8 10.0-50.0 % Monocytes (%) (Auto) 9.3 0.0-12.0 % Eosinophils (%) (Auto) 0.0 0.0-7.0 % Basophils (%) (Auto) 1.1 0.0-2.0 % Neutrophils # (Auto) 4.5 1.6-8.6 10 ^3/uL Lymphocytes # (Auto) 1.4 0.4-5.4 10 ^3/uL Monocytes # (Auto) 0.6 0-1.3 10 ^3/uL Eosinophils # (Auto) 0 0-0.8 10 ^3/uL Basophils # (Auto) 0.1 0-0.2 10 ^3/uL Nucleated Red Blood Cells 0.1 % Sodium Level 140 136-145 mmol/L Potassium Level 3.4 L 3.5-5.1 mmol/L Chloride Level 100 98-107 mmol/L Carbon Dioxide Level 25 20-31 mmol/L Anion Gap 15 5-15 Blood Urea Nitrogen < 5 L 9-23 mg/dL Creatinine 0.81 0.700-1.30 mg/dL Glomerular Filtration Rate Calc 128 >90 mL/min BUN/Creatinine Ratio 6.2 L 10.0-20.0 Serum Glucose 127 H 74-106 mg/dL Calcium Level 9.6 8.7-10.4 mg/dL Plasma/Serum Blood Alcohol 192.8 H <10 mg/dL Current Medications Medications (Trade) Dose Ordered Sig/Nasra Route Start Time Stop Time Status Last Admin Sodium Chloride 1,000 ml @ 1,000 mls/hr Q1H ONCE IV 04/20/25 10:00 04/20/25 10:59 DC 04/20/25 10:20 Lorazepam (Ativan Inj) 1 mg ONCE ONCE IV 04/20/25 10:00 04/20/25 10:01 DC 04/20/25 10:24 Patient alert. Vitals stable. No sign of distress. Answering questions. History of alcohol use. Blood alcohol level elevated. Establish intravenous access. Was given fluids. Was given Ativan. Denies suicidal or homicidal ideation. Explained to the patient. Was told to follow up with his primary care physician. Was told to come back if there is any problem. Time of 1ST Reevaluation: 10:25 Reevaluation 1ST: Improved Patient Education/Counseling: Diagnosis, Treatment, Prognosis Family Education/Counseling: No Family Present Departure 1 Departure Time of Disposition: 12:06 Impression: Primary Impression: Alcohol abuse Disposition: HOME / SELF CARE / HOMELESS Condition: Good Discharged With: Self Critical Care Note Critical Care Time?: No Stability Stability form required: No I personally scribed for STEPHANIE UPTON MD ([email or web address]) on 04/20/25 at 10:30. Electronically submitted by Rubia Whitehead ([facility]). STEPHANIE UPTON MD Apr 20, 2025 10:30
[2025-04-20 10:32] LABS: Chloride 100 mmol/L (98-107); Sodium 140 mmol/L (136-145)
[2025-04-20 10:33] LABS: Anion Gap 15 (5-15); Calcium 9.6 mg/dL (8.7-10.4); Carbon Dioxide 25 mmol/L (20-31)
[2025-04-20 10:39] LABS: BUN/Creatinine Ratio 6.2 (10.0-20.0); Blood Alcohol 192.8 mg/dL (<10); Blood Urea Nitrogen < 5 mg/dL (9-23); Glucose 127 mg/dL (74-106); Potassium 3.4 mmol/L (3.5-5.1)
[2025-04-20 11:11] LABS: Urine Bacteria None Seen /hpf (None Seen)
[2025-04-20 11:20] LABS: Urine Blood Negative /uL (Negative); Urine Clarity Clear (Clear); Urine Color Yellow (Yellow); Urine Hyaline Cast MOD /lpf (0 - 2); Urine Mucus FEW (None Seen); Urine Protein, UAD 1+ (Negative); Urine Specific Gravity 1.021 (1.001-1.035); Urine Squamous Epithelial Cell None Seen /hpf (<5); Urine Urobilinogen 8 mg/dL (Negative); Urine WBC 2 /HPF (0-3); Urine pH 6.5 (5.0-9.0)
[2025-04-20 12:18] VITALS: BP 150/72; PULSE 123; RESP 18; TEMP 98.4; O2SAT 98
--- NOTE | 2025-04-20 19:09 | ECG ---
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
== END 2025-04-20 13:52 | disposition home or self-care (01) ==
LOC: EDBD 09:47 → ER 09:47
DX: F10.10 Alcohol abuse, uncomplicated (principal); F32.A Depression, unspecified; Z90.89 Acquired absence of other organs; Y90.6 Blood alcohol level of 120-199 mg/100 ml
CPT/HCPCS: 36415; 80048; 80320; 81001; 85025; 93005; 96361; 96374; 99284; J2060; J7030

== ENCOUNTER 2025-04-20 19:01 | Inpatient (IN) | payer MEDICAID, OTHER ==
[~2025-04-20] VITALS: Ht 182.9 cm; Wt 190.3 kg
--- NOTE | 2025-04-20 19:10 | ED.PDOC ---
GI ASSESSMENT HPI Comments HPI: Poor Historian. 20-year-old male recently discharged from the the ER today treated by a different provider. Patient was being evaluated at that time for alcohol abuse. Patient said he went home tried to drink some Pedialyte and started throwing up at least 3 times. He thinks it might have some blood in it but he has a vomit bag with him with gastric content that does not have any blood in it. Nonbilious nonbloody. Patient per EMS was tachycardic in the 120s. Patient appears to have some tremors and diaphoretic. Denies any use of alcohol since he left the hospital. Past Medical History: Alcohol abuse, anxiety disorder, hypertension Past Surgical History: Tonsillectomy Medications: Denies Allergies: NKDA Social History: Heavy ETOH use, denies tobacco use, denies drug use Initial vitals: BP: 170/102 HR: 120 RR: 20 O2 Sat.: 96% Temp.: 98.9F REVIEW OF SYSTEMS: CONSTITUTIONAL: Denies acute: fever, diaphoresis, chills, HEAD: Denies acute: headache, photophobia Eyes: Denies acute: Double vision, vision loss, eye pain, eye discharge. EARS: Denies acute: tinnitus, hearing loss, ear discharge, ear pain, THROAT: Denies acute: sore throat, swelling, difficulty swallowing , pain with swallowing, change in voice. NECK: Denies acute: neck pain, neck swelling, stiff neck. HEART: Denies acute : chest pain, palpitations, LUNGS: Denies acute: SOB, wheezing, cough, hemoptysis ABDOMEN: Denies acute: abdominal pain, diarrhea, melena , hematemesis, hematochezia SKIN: Denies acute: rash, redness, lesions, itchiness. EXTREMITIES: Denies acute: calf pain, numbness, tingling, weakness, denies pain in extremity. Denies acute: Low back pain. Neuro: Denies acute: focal neurological deficit, motor or sensory focal neurological deficit, tremors, seizure like activity, confusion, dizziness, change in mental status, loss of bowel or bladder function, cauda equina like symptoms. : Denies acute: dysuria, hematuria, flank pain, increase in urinary frequency. PSYCH: Denies acute: hallucination, suicidal ideation, homicidal ideation. PHYSICAL EXAM: General: ----[id number]----acute distress, awake and alert. Head: normocephalic, atraumatic. Neck: supple, trachea is midline, no swelling. Throat: Normal phonation. Eyes:, no erythema, no purulent discharge, no proptosis, no icterus. Heart: regular tachycardic, no significant murmur appreciated. Lungs: no apparent respiratory distress, Able to speak in full sentences. No wheezing, no rhonchi, no crackles. No stridors Clear to auscultation bilaterally. Abdomen: non tender to palpation, non distended, soft, no guarding, no rebound, + bowel sounds. Morbidly obese Neuro: Awake, Alert, oriented to name, self, situation, follows commands. Noted mild tremors. GCS=15. Speech is normal. Skin: no petechia, no purpura, no cyanosis, non-pale, not jaundice. Lower extremities: --no - Pitting edema no deformity, no focal swelling, no calf TTP. Makes eye contact. moves all four extremities. Face: no apparent facial droop. ED COURSE: Time Seen by MD: 19:10 Reviewed Notes: Medications, Allergies Allergies: Coded Allergies: No Known Drug Allergy (Verified Allergy, Unknown, 02/04/25) Information Source: Patient Mode of Arrival: Ambulatory Was a procedure done? Was a procedure done?: No GI differential Dx Differential Diagnosis: Esophagitis, Gastritis/PUD, Gastroenteritis, GI hemorrhage, Hepatitis, Inflammatory BD, Ischemic Bowel, Pancreatitis, UTI, Dehydration, Diabetes/ DKA, Electrolyte Imbalance, Food Poisoning, Bacterial, Parasitic, Viral, Hypovolemia, Anemia, Esophageal Varicies, Stress Ulcer, Other (Alcohol withdrawal, DTs,) X-Ray, Labs, Meds, VS Vital Signs Date Time Temp Pulse Resp B/P (MAP) Pulse Ox O2 Delivery O2 Flow Rate FiO2 04/21/25 00:00 101 12 143/95 (111) 95 04/20/25 23:58 112 04/20/25 22:00 112 16 139/84 (102) 94 04/20/25 19:30 127 20 95 Room Air* 0 21 04/20/25 19:30 99.3 121 20 152/91 (111) 96 99.3 04/20/25 19:02 98.9 120 20 170/102 (124) 96 98.9 Lab Test 04/20/25 21:30 04/20/25 19:14 04/20/25 00:00 Range/Units Lactic Acid Level 1.7 2.2 *H 0.4-2.0 mmol/L White Blood Count 9.2 # 4.4-10.8 10^3/uL Red Blood Count 4.68 4.5-5.90 10^6/uL Hemoglobin 15.3 13.5-17.5 g/dL Hematocrit 43.4 41.0-53.0 % Mean Corpuscular Volume 92.7 80.0-100.0 fL Mean Corpuscular Hemoglobin 32.7 H 28.0-32.0 pg Mean Corpuscular Hemoglobin Concent 35.3 32.0-36.0 g/dL Red Cell Distribution Width 14.3 11.8-14.3 % Platelet Count 208 140-450 10^3/uL Mean Platelet Volume 8.0 6.9-10.8 fL Neutrophils (%) (Auto) 77.7 37.0-80.0 % Lymphocytes (%) (Auto) 12.5 10.0-50.0 % Monocytes (%) (Auto) 8.9 0.0-12.0 % Eosinophils (%) (Auto) 0.0 0.0-7.0 % Basophils (%) (Auto) 0.9 0.0-2.0 % Neutrophils # (Auto) 7.2 1.6-8.6 10 ^3/uL Lymphocytes # (Auto) 1.2 0.4-5.4 10 ^3/uL Monocytes # (Auto) 0.8 0-1.3 10 ^3/uL Eosinophils # (Auto) 0 0-0.8 10 ^3/uL Basophils # (Auto) 0.1 0-0.2 10 ^3/uL Nucleated Red Blood Cells 0.1 % Sodium Level 140 136-145 mmol/L Potassium Level 3.4 L 3.5-5.1 mmol/L Chloride Level 103 98-107 mmol/L Carbon Dioxide Level 26 20-31 mmol/L Anion Gap 11 5-15 Blood Urea Nitrogen 8 L 9-23 mg/dL Creatinine 0.83 0.700-1.30 mg/dL Glomerular Filtration Rate Calc 127 >90 mL/min BUN/Creatinine Ratio 9.6 L 10.0-20.0 Serum Glucose 117 H 74-106 mg/dL Calcium Level 9.6 8.7-10.4 mg/dL Magnesium Level 1.5 L 1.6-2.6 mg/dL Total Bilirubin 2.5 H 0.2-1.0 mg/dL Aspartate Amino Transferase (AST) 219 H 13-40 U/L Alanine Aminotransferase (ALT) 54 H 7-40 U/L Alkaline Phosphatase 107 46-116 U/L Total Protein 7.2 5.7-8.2 g/dL Albumin 4.3 3.2-4.8 g/dL Lipase 35 12-53 U/L Plasma/Serum Blood Alcohol < 3.0 <10 mg/dL Urine Color Light-orange Yellow Urine Clarity Clear Clear Urine pH 7.0 5.0-9.0 Urine Specific [place] 1.023 1.001-1.035 Urine Protein Trace H Negative Urine Ketones 1+ H Negative Urine Blood Negative Negative /uL Urine Nitrite Negative Negative Urine Bilirubin Negative Negative Urine Urobilinogen 8 H Negative mg/dL Urine Leukocyte Esterase Negative Negative /uL Urine RBC 1 0 - 3 /hpf Urine Microscopic WBC < 1 0-3 /HPF Urine Squamous Epithelial Cells None seen <5 /hpf Urine Bacteria None seen None Seen /hpf Urine Glucose Normal Normal mg/dL Current Medications Medications (Trade) Dose Ordered Sig/Nasra Route Start Time Stop Time Status Last Admin Sodium Chloride 1,000 ml @ 1,000 mls/hr Q1H ONCE IV 04/20/25 19:15 04/20/25 20:14 DC 04/20/25 20:16 Thiamine HCl 100 mg ONCE ONCE PO 04/20/25 19:15 04/20/25 19:16 DC 04/20/25 20:36 Ondansetron HCl (Zofran) 4 mg ONCE ONCE IV 04/20/25 19:15 04/20/25 19:16 DC 04/20/25 20:36 Pantoprazole Sodium (Protonix) 40 mg ONCE ONCE IV 04/20/25 19:15 04/20/25 19:16 DC 04/20/25 20:36 Lorazepam (Ativan Inj) 1 mg ONCE ONCE IV 04/20/25 19:30 04/20/25 19:31 DC 04/20/25 20:36 Magnesium Sulfate/ Dextrose 100 ml @ 100 mls/hr ONCE ONCE IV 04/20/25 21:45 04/20/25 22:44 DC 04/20/25 22:33 Lorazepam (Ativan Inj) 1 mg ONCE ONCE IV 04/20/25 23:00 04/20/25 23:01 DC 04/20/25 23:02 Chlordiazepoxide HCl (Librium Capsule) 25 mg ONCE ONCE PO 04/20/25 23:00 04/20/25 23:01 DC 04/20/25 23:02 Sodium Chloride 1,000 ml @ 1,000 mls/hr Q1H ONCE IV 04/20/25 23:45 04/21/25 00:44 DC 04/21/25 00:05 Magnesium Oxide (Mag-Ox Tablet) 800 mg ONCE ONCE PO 04/21/25 00:00 04/21/25 00:01 DC 04/21/25 00:04 Time of 1ST Reevaluation: 00:00 Reevaluation 1ST: Unchanged Time of 2ND Reevaluation: 23:47 (The case was discussed with the [facility] admitting team (HPI, physical exam, labs and diagnostic tests that were available at the time of disposition, ED course, treatment plan) on the phone. They agreed to transfer the patient to their service by ALS for further evaluation and treatment. ---anthony Authorization number is--[id number]) Time of 3RD Reevaluation: 01:53 ([facility] called and authorized us to keep the patient here in the ED because he could not find placement for him.) Patient Education/Counseling: Diagnosis, Treatment Family Education/Counseling: No Family Present Comments Patient presented with the above HPI.--nausea and vomiting and suspected alcohol withdrawal----workup was initiated. patient was found with the above mentioned diagnosis. the following medications were ordered: please refer to order lists of meds and tests obtained by myself Dr. Gee. Patient ED course and VS have been stabilized. Patient has been reassessed in the ED and remained in a stable condition. Pertinent incidental findings were discussed with the patient and/or family. Patient/family voices understanding and is agreeable with plan. Patient has been observed in the ED adequate length of time to insure improvement/stability. Escalation of care considered: Consideration of escalation to observation or admission Patient was transferred to [facility] per insurance requirement for further evaluation and treatment of their presentation. All the reports of any imaging studies that were ordered by myself were reviewed by myself. Departure 1 Departure Time of Disposition: 21:34 Impression: Primary Impression: Alcohol withdrawal Additional Impressions: Hypomagnesemia Elevated LFTs Disposition: ADMITTED INPATIENT Admit to: [facility] Condition: Guarded Discharged With: Self Critical Care Note Critical Care Time?: Yes (45 min-critical care time only) I personally scribed for MARLI GEE DO ([email or web address]) on 04/20/25 at 19:10. Electron ically submitted by Lobo Watson ([email or web address]). I personally scribed for MARLI GEE DO ([email or web address]) on 04/20/25 at 19:21. Electronically submitted by Lobo Watson ([email or web address]). I personally scribed for MARLI GEE DO ([email or web address]) on 04/20/25 at 19:51. Electronically submitted by Lobo Watson ([email or web address]). MARLI GEE DO Apr 20, 2025 19:10
[2025-04-20 19:30] VITALS: PULSE 127; RESP 20; O2SAT 95
[2025-04-20 19:37] LABS: Basophils # (auto) 0.1 10 ^3/uL (0-0.2); Basophils % (auto) 0.9 % (0.0-2.0); Eosinophils # (auto) 0 10 ^3/uL (0-0.8); Hematocrit 43.4 % (41.0-53.0); Hemoglobin 15.3 g/dL (13.5-17.5); Lymphocytes # (auto) 1.2 10 ^3/uL (0.4-5.4); Lymphocytes % (auto) 12.5 % (10.0-50.0); Mean Corpuscular Hemoglobin 32.7 pg (28.0-32.0); Mean Corpuscular Hgb Conc. 35.3 g/dL (32.0-36.0); Mean Corpuscular Volume 92.7 fL (80.0-100.0); Monocytes # (auto) 0.8 10 ^3/uL (0-1.3); Monocytes % (auto) 8.9 % (0.0-12.0); Neutrophils # (auto) 7.2 10 ^3/uL (1.6-8.6); Neutrophils % (auto) 77.7 % (37.0-80.0); Nucleated Red Blood Cells % 0.1 %; Platelet Count (auto) 208 10^3/uL (140-450); Red Blood Cells 4.68 10^6/uL (4.5-5.90); Red Cell Distribution Width 14.3 % (11.8-14.3); White Blood Cell 9.2 10^3/uL (4.4-10.8)
[2025-04-20 19:53] LABS: Albumin 4.3 g/dL (3.2-4.8); Alkaline Phosphatase 107 U/L (46-116); Anion Gap 11 (5-15); BUN/Creatinine Ratio 9.6 (10.0-20.0); Calcium 9.6 mg/dL (8.7-10.4); Carbon Dioxide 26 mmol/L (20-31); Chloride 103 mmol/L (98-107); Sodium 140 mmol/L (136-145); Total Protein 7.2 g/dL (5.7-8.2)
[2025-04-20 19:54] LABS: Alanine Aminotransferase 54 U/L (7-40); Aspartate Aminotransferase 219 U/L (13-40); Bilirubin, Total 2.5 mg/dL (0.2-1.0); Blood Alcohol < 3.0 mg/dL (<10); Blood Urea Nitrogen 8 mg/dL (9-23); Glucose 117 mg/dL (74-106); Magnesium 1.5 mg/dL (1.6-2.6); Potassium 3.4 mmol/L (3.5-5.1)
[2025-04-20 19:57] LABS: Lactic Acid w/Reflex 2.2 mmol/L (0.4-2.0)
[2025-04-20 20:05] LABS: Lipase 35 U/L (12-53)
[2025-04-20] MEDS: SODIUM CHLORIDE 0.9% 1,000 ML IV ONE (20:16)
[2025-04-20] MEDS: ONDANSETRON HCL 4 MG/2 ML VIAL IV ONE (20:36)
[2025-04-20] MEDS: PANTOPRAZOLE 40 MG/10 ML VIAL INJ IV ONE (20:36)
[2025-04-20] MEDS: THIAMINE HCL 100 MG TAB PO ONE (20:36)
[2025-04-20] MEDS: LORazepam 2MG/ML-1ML VIAL IV ONE ×2 (20:36→23:02)
[2025-04-20] MEDS: MAGNESIUM SULFATE 1GM/100ML 100 ML IV ONE (22:33)
[2025-04-20] MEDS: chlordiazePOXIDE HCL 25 MG CAP PO ONE (23:02)
[2025-04-21] MEDS: MAGNESIUM OXIDE 400 MG TAB PO ONE (00:04)
[2025-04-21] MEDS: SODIUM CHLORIDE 0.9% 1,000 ML IV ONE ×2 (00:05→04:30)
[2025-04-21 01:08] LABS: Urine Bacteria None Seen /hpf (None Seen)
[2025-04-21 01:24] LABS: Urine Blood Negative /uL (Negative); Urine Clarity Clear (Clear); Urine Color Light-Orange (Yellow); Urine Protein, UAD TRACE (Negative); Urine Specific Gravity 1.023 (1.001-1.035); Urine Squamous Epithelial Cell None Seen /hpf (<5); Urine Urobilinogen 8 mg/dL (Negative); Urine WBC < 1 /HPF (0-3)
[2025-04-21] MEDS ORDERED: MORPHINE SULFATE INJ 2 MG/ml SYRG IV PRN ×2 (04:30)
[2025-04-21] MEDS ORDERED: ACETAMINOPHEN 325 MG TAB PO PRN (04:30)
[2025-04-21] MEDS ORDERED: NITROGLYCERIN 0.4 MG SL TAB SL PRN (04:30)
[2025-04-21] MEDS ORDERED: ONDANSETRON HCL 4 MG/2 ML VIAL IV PRN (04:30)
[2025-04-21] MEDS ORDERED: DOCUSATE SOD 100 MG CAP PO PRN (04:30)
[2025-04-21] MEDS: SODIUM CHLORIDE 0.9% 1,000 ML IV SCH (04:30)
[2025-04-21] MEDS: FOLIC ACID 1 MG in D5W 5% 50 ML INJ ONE (04:44)
--- NOTE | 2025-04-21 04:55 | DVHHPRES ---
History of Present Illness Resident Creating Document: DAYSI CRUZ RESIDENT History of Present Illness Mr. Strauss, a 20-year-old male with a history of alcohol abuse, generalized anxiety disorder, and hypertension, grade III obesity recently discharged from the ER after evaluation for alcohol use, presents with recurrent vomiting after attempting oral hydration with Pedialyte. He reports possible hematemesis, though current emesis is non-bloody and non-bilious. On EMS evaluation, he was tachycardic (HR ~120s), diaphoretic, and exhibited tremors, raising concern for alcohol withdrawal. He denies further alcohol use since discharge. His social history includes heavy alcohol use but no tobacco or drug use, and he is not on any medications. Several previous ER visits with similar alcohol dependence related issues. The patient could not remember the PCP name but mentions follows with the [facility] and reports prior nonadherence. 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 on 04/20, been heavy alcoholic for past 1 year at least.) Drugs: None Lives: with Family (Patient lives with family and siblings have twin sister and brother parents are going through divorce and they are having a huge amount of stress that triggered his alcohol abuse as reported by the patient.) Domestic Violence: Neg Review of Systems Constitutional: Yes: Malaise; No: Fever, Chills, Sweats, Weakness, Other Eyes: No: Pain, Vision change, Conjunctivae inflammation, Eyelid inflammation, Other, Redness ENT: No: Ear pain, Ear discharge, Nose pain, Nose discharge, Nose congestion, Mouth pain, Mouth swelling, Throat pain, Throat swelling, Other Respiratory: No: Cough, Dry, Shortness of breath, SOB with excertion, Wheezing, Hemoptysis, Pleuritic Pain, Sputum, Wheezing, Other Cardiovascular: No: Chest Pain, Palpitations, Orthopnea, Paroxysmal Noc. Dyspnea, Edema, Lt Headedness, Other Gastrointestinal: Nausea, Vomiting, Abdominal Pain, Other (Coffee-ground emesis x1) Genitourinary: No Dysuria, No Frequency, No Incontinence, No Hematuria, No Retention, No Other Musculoskeletal: No: other, neck pain, shoulder pain, arm pain, back pain, hand pain, leg pain, foot pain Skin: No: Rash, Lesions, Jaundice, Bruising, Other Neurological: Other (Visual hallucinations); No: Weakness, Numbness, Incoordination, Change in speech, Confusion, Seizures Allergies: Coded Allergies: No Known Drug Allergy (Verified Allergy, Unknown, 02/04/25) Medications Current Medications Medications Dose Ordered Sig/Nasra Route Start Time Stop Time Status Last Admin Dose Admin Sodium Chloride 1,000 ml @ 60 mls/hr [id number] IV 04/21/25 04:30 Ondansetron HCl 4 mg Q4HP PRN IV 04/21/25 04:30 Docusate Sodium 100 mg BIDPRN PRN PO 04/21/25 04:30 Acetaminophen 650 mg Q6HP PRN PO 04/21/25 04:30 Morphine Sulfate 2 mg Q4HPRN PRN IV 04/21/25 04:30 Nitroglycerin 0.4 mg Q5MINP PRN SL 04/21/25 04:30 Morphine Sulfate 2 mg Q30M PRN IV 04/21/25 04:30 Thiamine HCl 100 mg DAILY PO 04/21/25 10:00 Folic Acid 1 mg DAILY PO 04/21/25 10:00 Multivitamins 1 tab DAILY PO 04/21/25 10:00 Lorazepam 1 mg Q4H IV 04/21/25 04:30 Pantoprazole Sodium 40 mg DAILY IV 04/21/25 10:00 Magnesium Sulfate/ Dextrose 100 ml @ 100 mls/hr Q1H IV 04/21/25 04:45 04/21/25 06:44 Exam Vital Signs Vital Signs Date Time Temp Pulse Resp B/P (MAP) Pulse Ox O2 Delivery O2 Flow Rate FiO2 04/21/25 04:17 98.6 77 18 132/81 (98) 96 98.6 04/20/25 19:30 Room Air* 0 21 General Appearance: Alert, Oriented X3, Cooperative, mild distress HEENT: Atraumatic, PERRLA, EOMI, Other (Dry mucous membrane) Respiratory: Clear to auscultation, Normal air movement, Other (At night patient is hypoxic likely due to underlying obesity hypoventilation syndrome versus VINICIUS on 2 L of oxygen at night) Cardiovascular: Regular rate, Normal S1, Normal S2, No murmurs, Gallops, Rubs Abdominal: Normal bowel sounds, Soft, No tenderness, No hepatospenomegaly, No masses Extremities: No clubbing, No cyanosis, No edema, Normal pulses, No tenderness/swelling Skin: No rashes, No breakdown, No significant lesion Neuro: Normal gait, Normal speech, Strength at 5/5 X4 ext, Normal tone, Sensation intact, Cranial nerves 3-12 NL, Reflexes 2+ Psych/Mental Status: Mental status NL, Mood NL Labs/Xrays Labs Test 04/21/25 04:30 04/20/25 21:30 04/20/25 19:14 04/20/25 00:00 Range/Units Lactic Acid Level 1.7 0.4-2.0 mmol/L White Blood Count 9.2 # 4.4-10.8 10^3/uL Red Blood Count 4.68 4.5-5.90 10^6/uL Hemoglobin 15.3 13.5-17.5 g/dL Hematocrit 43.4 41.0-53.0 % Mean Corpuscular Volume 92.7 80.0-100.0 fL Mean Corpuscular Hemoglobin 32.7 H 28.0-32.0 pg Mean Corpuscular Hemoglobin Concent 35.3 32.0-36.0 g/dL Red Cell Distribution Width 14.3 11.8-14.3 % Platelet Count 208 140-450 10^3/uL Mean Platelet Volume 8.0 6.9-10.8 fL Neutrophils (%) (Auto) 77.7 37.0-80.0 % Lymphocytes (%) (Auto) 12.5 10.0-50.0 % Monocytes (%) (Auto) 8.9 0.0-12.0 % Eosinophils (%) (Auto) 0.0 0.0-7.0 % Basophils (%) (Auto) 0.9 0.0-2.0 % Neutrophils # (Auto) 7.2 1.6-8.6 10 ^3/uL Lymphocytes # (Auto) 1.2 0.4-5.4 10 ^3/uL Monocytes # (Auto) 0.8 0-1.3 10 ^3/uL Eosinophils # (Auto) 0 0-0.8 10 ^3/uL Basophils # (Auto) 0.1 0-0.2 10 ^3/uL Nucleated Red Blood Cells 0.1 % Sodium Level 140 136-145 mmol/L Potassium Level 3.4 L 3.5-5.1 mmol/L Chloride Level 103 98-107 mmol/L Carbon Dioxide Level 26 20-31 mmol/L Anion Gap 11 5-15 Blood Urea Nitrogen 8 L 9-23 mg/dL Creatinine 0.83 0.700-1.30 mg/dL Glomerular Filtration Rate Calc 127 >90 mL/min BUN/Creatinine Ratio 9.6 L 10.0-20.0 Serum Glucose 117 H 74-106 mg/dL Calcium Level 9.6 8.7-10.4 mg/dL Magnesium Level 1.5 L 1.6-2.6 mg/dL Total Bilirubin 2.5 H 0.2-1.0 mg/dL Aspartate Amino Transferase (AST) 219 H 13-40 U/L Alanine Aminotransferase (ALT) 54 H 7-40 U/L Alkaline Phosphatase 107 46-116 U/L Total Protein 7.2 5.7-8.2 g/dL Albumin 4.3 3.2-4.8 g/dL Lipase 35 12-53 U/L Plasma/Serum Blood Alcohol < 3.0 <10 mg/dL Urine Color Light-orange Yellow Urine Clarity Clear Clear Urine pH 7.0 5.0-9.0 Urine Specific [place] 1.023 1.001-1.035 Urine Protein Trace H Negative Urine Ketones 1+ H Negative Urine Blood Negative Negative /uL Urine Nitrite Negative Negative Urine Bilirubin Negative Negative Urine Urobilinogen 8 H Negative mg/dL Urine Leukocyte Esterase Negative Negative /uL Urine RBC 1 0 - 3 /hpf Urine Microscopic WBC < 1 0-3 /HPF Urine Squamous Epithelial Cells None seen <5 /hpf Urine Bacteria None seen None Seen /hpf Urine Glucose Normal Normal mg/dL Assessment/Plan Assessment/Plan Assessment: # acute alcohol withdrawal, no prior history of hospitalization or ICU admission or seizure disorder # visual hallucination, may or may not be associated with alcohol withdrawal as visual hallucination is comparatively rare in association with alcohol withdrawal # alcohol abuse disorder # nicotine abuse disorder with 2-3 cigarettes per week only now a days. # history of medical nonadherence # generalized anxiety disorder, previously on Zoloft, patient's salt discontinued. # grade 3 obesity # likely adjustment disorder, familial stress due to parental divorce. # poor historian # possible obesity hypo ventilation syndrome # possible obstructive sleep apnea, nighttime oxygen desaturation # possible slow GI bleeding, with coffee-ground emesis x1 # ruled out GI perforation with upright CXR, negative for free gas # poor nutrition, last patient 3 days back # CXR ruled out lobar pneumonia/aspiration pneumonia chest clear saturating well while awake. # denies suicidal or homicidal ideation. # high-risk for delirium tremens # moderately hydration status post IV fluid challenge # lactic acidosis, resolved likely due to above # mild hypokalemia, potassium 3.4 # high-risk of refeeding syndrome # fatty liver, hepatosteatosis # transaminitis, 2 is to 1 pattern likely due alcohol abuse # prolonged QTC more than 500 MS Plan: # complete abstinence from alcohol, discussed plan with bedside counseling and details. # CIWA protocol with Ativan as needed. # hypokalemia replenished with IV potassium # alcohol abuse supportive care and electrolyte correction along with thiamine, banana bag, folate, MVI. # close monitoring with inpatient level of care as patient is not stable for transfer overnight with acute alcohol withdrawal symptoms. # social psychologist consulted for plan of care. Patient agreeable to go to [facility] when hemodynamically stable. # not having craving but when patient feels craving nicotine patch as needed. # 11 minute smoking cessation counseling done at bedside # patient is advice to restart on Zoloft for underlying anxiety disorder # needs to follow up outpatient psychiatry/psychotherapist for stress management. # outpatient sleep study/pulmonology for further workup for VINICIUS versus OHS # nighttime oxygen to 2 L for now. # advanced diet as tolerated, nausea subsides, high risk of refeeding syndrome close monitoring of electrolytes necessary. # IV pantoprazole daily # avoid QT prolonging drugs, continue telemetry monitoring. Code status: Full code discussed over 39 minutes along with goals of care and plan of care. Patient is agreeable to the hospitalization and care planning. Admission with [facility] authorization. The patient remains in the hospital for further workup and management for now. When hemodynamically stable consider transferring to [facility]. Discussed with Dr. King. Plan discussed with: Patient My Orders Orders - DAYSI CRUZ RESIDENT Procedure Category Date Status Time Admit ADMIT 04/21/25 Transmitted 04:30 Allergies CRISTIAN 04/21/25 In Process 04:30 Code Status CODE 04/21/25 Transmitted 04:30 Sodium Chloride 0.9% PHA 04/21/25 In Process 04:30 Ondansetron Hcl PHA 04/21/25 In Process (Zofran) 04:30 Docusate Sodium PHA 04/21/25 In Process Capsule (Colace 04:30 Complete Blood Count LAB 04/22/25 Verified 04:00 Comprehensive LAB 04/22/25 Verified Metabolic Panel 04:00 Npo (Nothing By DIET 04/21/25 Transmitted Mouth) Diet Breakfast Echo 2d Mode Cardiac US 04/21/25 Logged DOP 04:30 Condition: Serious CRISTIAN 04/21/25 In Process 04:30 Acetaminophen Tablet PHA 04/21/25 In Process (Tylenol Tablet) 04:30 Morphine Sulfate PHA 04/21/25 In Process Injection 04:30 Sequential CRISTIAN 04/21/25 In Process Compression Device Nitroglycerin PHA 04/21/25 In Process Sublingual (Ntrostat 04:30 Morphine Sulfate PHA 04/21/25 In Process Injection 04:30 Oxygen By Nasal RT 04/21/25 Transmitted Cannula 04:30 Stat Ekg For Chest CRISTIAN 04/21/25 In Process Pain 04:30 Notify Md Of Changes CRISTIAN 04/21/25 In Process From Base 04:30 Nursing Scheduler For CRISTIAN 04/21/25 In Process 24 Hours 04:30 Emergency Dysrhythmia CRISTIAN 04/21/25 In Process Protocol 04:30 Rhythm Strips Once CRISTIAN 04/21/25 In Process Every Shift 04:30 Drug Screen LAB 04/21/25 In Process 04:30 Sodium Chloride 0.9% PHA 04/21/25 In Process 04:30 Thiamine Tab PHA 04/21/25 In Process 10:00 Folic Acid Tablet PHA 04/21/25 In Process 10:00 Multiple Vitamin PHA 04/21/25 In Process Tablet (Mvi Tab) 10:00 Lorazepam 2mg/Ml Inj PHA 04/21/25 In Process (Ativan Inj) 04:30 Etoh Withdrawal CRISTIAN 04/21/25 In Process Assessment 04:30 Etoh Withdrawal CRISTIAN 04/21/25 In Process Assessment 04:30 Complete Blood Count LAB 04/21/25 Logged 04:37 Comprehensive LAB 04/21/25 Logged Metabolic Panel 04:37 Prothrombin Time W/ LAB 04/21/25 Logged INR 04:37 Pantoprazole PHA 04/21/25 In Process (Protonix) 10:00 Lipase LAB 04/21/25 Logged 04:37 Magnesium LAB 04/21/25 Logged 04:37 LIVER US 04/21/25 Logged 04:41 Magnesium Sulfate PHA 04/21/25 In Process 1gm/100ml 04:45 Mvi In Sodium PHA 04/21/25 In Process Chloride 0.9% 04:45 * [employer] CONS 04/21/25 Transmitted Consult Chest Xray 1 View XY 04/21/25 Transmitted 04:51 Date of Service: Apr 21, 2025 Billing Provider: MANNY KING MD Common Visit Codes: [id number] INP/OBS CARE (HIGH) Secondary Visit Codes: [id number] CARE PLAN 30 MINUTES DAYSI CRUZ RESIDENT Apr 21, 2025 04:55 MANNY KING MD Apr 23, 2025 22:13
[2025-04-21 05:05] LABS: Basophils # (auto) 0.1 10 ^3/uL (0-0.2); Basophils % (auto) 1.3 % (0.0-2.0); Eosinophils # (auto) 0 10 ^3/uL (0-0.8); Eosinophils % (auto) 0.1 % (0.0-7.0); Hematocrit 41.9 % (41.0-53.0); Hemoglobin 14.3 g/dL (13.5-17.5); Lymphocytes # (auto) 1.4 10 ^3/uL (0.4-5.4); Lymphocytes % (auto) 28.2 % (10.0-50.0); Mean Corpuscular Hemoglobin 32.1 pg (28.0-32.0); Mean Corpuscular Hgb Conc. 34.2 g/dL (32.0-36.0); Mean Corpuscular Volume 93.9 fL (80.0-100.0); Monocytes # (auto) 0.5 10 ^3/uL (0-1.3); Monocytes % (auto) 10.2 % (0.0-12.0); Neutrophils % (auto) 60.2 % (37.0-80.0); Nucleated Red Blood Cells % 0.1 %; Platelet Count (auto) 156 10^3/uL (140-450); Red Blood Cells 4.46 10^6/uL (4.5-5.90); Red Cell Distribution Width 14.5 % (11.8-14.3)
[2025-04-21] MEDS: LORazepam 2MG/ML-1ML VIAL IV SCH (05:11)
[2025-04-21] MEDS: THIAMINE 100mg/ml INJ (200mg/2ml VIAL) IV ONE (05:11)
[2025-04-21] MEDS: MULTIPLE VITAMIN TAB PO ONE (05:11)
[2025-04-21 05:22] LABS: Alkaline Phosphatase 94 U/L (46-116); Anion Gap 7 (5-15); BUN/Creatinine Ratio 9.6 (10.0-20.0); Calcium 9.2 mg/dL (8.7-10.4); Carbon Dioxide 28 mmol/L (20-31); Chloride 106 mmol/L (98-107); Glucose 94 mg/dL (74-106); Sodium 141 mmol/L (136-145); Total Protein 6.7 g/dL (5.7-8.2)
[2025-04-21 05:24] LABS: INR 1.23 (0.9-1.15); Prothrombin Time 12.8 sec (9.3-11.8)
[2025-04-21 05:29] LABS: Alanine Aminotransferase 42 U/L (7-40); Aspartate Aminotransferase 158 U/L (13-40); Bilirubin, Total 2.9 mg/dL (0.2-1.0); Blood Urea Nitrogen 7 mg/dL (9-23); Potassium 3.4 mmol/L (3.5-5.1)
[2025-04-21 05:30] LABS: Amphetamine Screen, Urine Neg (NEGATIVE); Barbiturate Scree,Urine Neg (NEGATIVE); Benzodiazephine Screen, Urine Neg (NEGATIVE); Cannabinoid Screen, Urine Neg (NEGATIVE); Cocaine Screen, Urine Neg (NEGATIVE); Opiate Scree,Urine Neg (NEGATIVE); Phencyclidine Screen, Urine Neg (NEGATIVE)
[2025-04-21] MEDS: MVI in SODIUM CHLORIDE 0.9% 1,010 ML IV ONE (05:39)
--- NOTE | 2025-04-21 06:03 | DVH ---
CHEST RADIOGRAPH Indication: rule out aspiration or CAP pnemonia or free air under Technique: Single frontal view of the chest was obtained Comparison: None FINDINGS: Lines and Tubes: None Lungs: No focal consolidation. Pleura: No effusion. No pneumothorax. Cardiomediastinal contours: Unremarkable Bones: No acute osseous abnormality. IMPRESSION: 1. No acute cardiopulmonary disease.
[2025-04-21 06:15] LABS: Lipase 40 U/L (12-53)
--- NOTE | 2025-04-21 06:42 | ECG ---
[facility] Test Date: 2025-04-20 Test Time: 23:58:23 Pat Name: JOHANA BREAUX Department: ED Room: [address] [place] [address] Gender: M Facilities Technician: CHRISTIAN : 2005 Requested By: MARLI DE LA TORRE Order Number: [id number] Reading MD: Eduin Madrid Measurements Intervals Sims Rate: 112 P: 25 AZ: 136 QRS: -13 QRSD: 100 T: 29 QT: 373 QTc: 509 Interpretive Statements Sinus tachycardia Prolonged QT interval Electronically Signed On 04-21-2025 12:38:14 PDT by Eduin Madrid Please click the below link to view image of tracing.
--- NOTE | 2025-04-21 07:28 | DVH ---
EXAM: US Abdomen Limited, Right Upper Quadrant CLINICAL INDICATION: rule out hepatobilliary pathology TECHNIQUE: Real-time ultrasound of the right upper quadrant with image documentation. COMPARISON: US GALLBLADDER on DOS: 03/29/25 FINDINGS: LIVER: Liver measures up to 21.3 cm. Fatty infiltration of the liver. No intrahepatic bile duct d ilation. GALLBLADDER: Unremarkable. No gallstones. COMMON BILE DUCT: Unremarkable as visualized. No stones. No dilation. Common bile duct measures 0.47 cm in diameter. PANCREAS: Unremarkable as visualized. RIGHT KIDNEY: Unremarkable. No stones. No hydronephrosis. Right kidney measures 15.4 cm. OTHER FINDINGS: . Suboptimal exam secondary to patient's body habitus. . IMPRESSION: Fatty infiltration of the liver.
[2025-04-21 08:00] VITALS: PULSE 104; RESP 16; O2SAT 97
[2025-04-21] MEDS: MAGNESIUM SULFATE 1GM/100ML 100 ML IV SCH (08:37)
[2025-04-21] MEDS ORDERED: POTASSIUM CHLORIDE 20 MEQ, LIDOCAINE 1% (LOCAL ANESTH.) 2 ML in SODIUM CHL 0.9% 100 ML IV ONE (09:00)
[2025-04-21] MEDS: POTASSIUM EFFERVESENT TAB 25 MEQ PO ONE (09:15)
[2025-04-21] MEDS ORDERED: MULTIPLE VITAMIN TAB PO SCH (10:00)
[2025-04-21] MEDS ORDERED: THIAMINE HCL 100 MG TAB PO SCH (10:00)
[2025-04-21] MEDS ORDERED: FOLIC ACID 1 MG TAB PO SCH (10:00)
[2025-04-21] MEDS ORDERED: LORazepam 2MG/ML-1ML VIAL IV PRN (10:15)
[2025-04-21] MEDS: PANTOPRAZOLE 40 MG/10 ML VIAL INJ IV SCH (11:12)
[2025-04-21] MEDS ORDERED: MAALOX PLUS or MAALOX 30 ML GT PRN (12:45)
--- NOTE | 2025-04-21 13:29 | DVHPNRES ---
Progress Note Date Seen: Apr 21, 2025 Resident Creating Document: CANDIDA SERRANO RESIDENT Has the PT tested + for MRSA If YES, has PT been informed?: No Medical Necessity Reason Pt with a Central, PICC or Fol: No Subjective Review of Systems Mr. Strauss, a 20-year-old male with a history of alcohol abuse, generalized anxiety disorder, and hypertension, grade III obesity recently discharged from the ER after evaluation for alcohol use, presents with recurrent vomiting after attempting oral hydration with Pedialyte. He reports possible hematemesis, though current emesis is non-bloody and non-bilious. On EMS evaluation, he was tachycardic (HR ~120s), diaphoretic, and exhibited tremors, raising concern for alcohol withdrawal. He denies further alcohol use since discharge. His social history includes heavy alcohol use but no tobacco or drug use, and he is not on any medications. Several previous ER visits with similar alcohol dependence related issues. The patient could not remember the PCP name but mentions follows with the [facility] and reports prior nonadherence. 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 on 04/20, been heavy alcoholic for past 1 year at least.) Drugs: None Lives: with Family (Patient lives with family and siblings have twin sister and brother parents are going through divorce and they are having a huge amount of stress that triggered his alcohol abuse as reported by the patient.) Domestic Violence: Neg 04/21/2025: CIWA score 10, ativan 1 mg q4hPRN, nifedipine 30 mg for HTN, continue banana bag, patient is stable for transfer to [place]. Objective vital signs Vital Sign Date Time Temp Pulse Resp B/P (MAP) Pulse Ox O2 Delivery O2 Flow Rate FiO2 04/21/25 12:04 97.4 98 19 139/97 (111) 95 97.4 04/21/25 08:00 Room Air* 0 21 Total Intake and Output 04/20/25 04/20/25 04/21/25 15:00 23:00 07:00 Intake Total 1000 ml 1100 ml Balance 1000 ml 1100 ml medications Current Medications Medications Dose Ordered Sig/Nasra Route Start Time Stop Time Status Last Admin Dose Admin Pantoprazole Sodium 40 mg DAILY IV 04/21/25 10:00 04/21/25 11:12 40 MG Folic Acid 1 mg/ Multivitamins 10 ml/Magnesium Sulfate 8 meq/ Thiamine HCl 100 mg/Dextrose 1,013.2 ml @ 125.001 mls/hr DAILY@1800 INJ 04/21/25 18:00 Lorazepam 1 mg Q4HP PRN IV 04/21/25 12:45 UNV Al Hydrox/Mg Hydrox/Simethicone 15 ml Q8HP PRN GT 04/21/25 12:45 UNV Examination General Appearance: Alert, Oriented X3, Cooperative, mild distress HEENT: Atraumatic, PERRLA, EOMI, Other (Dry mucous membrane) Respiratory: Clear to auscultation, Normal air movement Cardiovascular: Regular rate, Normal S1, Normal S2, No murmurs, Gallops, Rubs Abdominal: Normal bowel sounds, Soft, No tenderness, No hepatospenomegaly, No masses Extremities: No clubbing, No cyanosis, No edema, Normal pulses, No tenderness/swelling Skin: No rashes, No breakdown, No significant lesion Neuro: Normal gait, Normal speech, Strength at 5/5 X4 ext, Normal tone, Sensation intact, Cranial nerves 3-12 NL, Reflexes 2+ Psych/Mental Status: Mental status NL, Mood NL laboratory and microbiology Laboratory Tests 04/21/25 04:48 Test 04/21/25 04:48 Range/Units Serum Glucose 94 74-106 mg/dL Problem List/Assessment/Plan Problem List/Assessment/Plan # acute alcohol withdrawal, no prior history of hospitalization or ICU admission or seizure disorder # alcohol abuse disorder # nicotine abuse disorder # history of medical nonadherence # anxiety disorder, # grade 3 obesity # possible obesity hypo ventilation syndrome # possible obstructive sleep apnea, nighttime oxygen desaturation # possible slow GI bleeding, with coffee-ground emesis x1 # mild hypokalemia, #Hypomagnesemia # fatty liver, hepatosteatosis # transaminitis # prolonged QTC more than 500 MS #Hypertension Plan: -CIWA protocol with Ativan as needed. -hypokalemia and hypomagnesemia replenished -banana bag given -maloox given -Protonix IV -Nifedipine PO Patient is stable for transfer for [place] Case discussed with Dr Vallejo Full code Plan discussed with: Patient, Other (rn) My Orders My Orders Orders - CANDIDA SERRANO RESIDENT Procedure Category Date Status Time * Naprapath CONS 04/21/25 Transmitted Consult Comprehensive LAB 04/21/25 Logged Metabolic Panel 13:00 Magnesium LAB 04/21/25 Logged 13:00 Folic Acid... PHA 04/21/25 In Process 18:00 Lorazepam 2mg/Ml Inj PHA 04/21/25 Logged (Ativan Inj) 12:45 Alum & Mag PHA 04/21/25 Logged Hydrox-Simethicone 12:45 Date of Service: Apr 20, 2025 Billing Provider: SHONNA VALLEJO MD Common Visit Codes: [id number] INP/OBS CARE(HIGH) CANDIDA SERRANO RESIDENT Apr 21, 2025 13:29 SHONNA VALLEJO MD Apr 21, 2025 20:14
[2025-04-21 14:54] LABS: Alanine Aminotransferase 41 U/L (7-40); Albumin 3.7 g/dL (3.2-4.8); Alkaline Phosphatase 89 U/L (46-116); Anion Gap 6 (5-15); Aspartate Aminotransferase 164 U/L (13-40); BUN/Creatinine Ratio 9.6 (10.0-20.0); Blood Urea Nitrogen 7 mg/dL (9-23); Calcium 8.9 mg/dL (8.7-10.4); Carbon Dioxide 28 mmol/L (20-31); Chloride 107 mmol/L (98-107); Glucose 91 mg/dL (74-106); Magnesium 1.9 mg/dL (1.6-2.6); Potassium 3.9 mmol/L (3.5-5.1); Sodium 141 mmol/L (136-145); Total Protein 6.1 g/dL (5.7-8.2)
[2025-04-21 14:56] LABS: Bilirubin, Total 3.1 mg/dL (0.2-1.0)
[2025-04-21] MEDS: NIFEdipine ER 30 MG TAB PO SCH (16:13)
[2025-04-21 17:50] VITALS: BP 144/87; PULSE 98; RESP 17; TEMP 98.3; O2SAT 95
[2025-04-21] MEDS: FOLIC ACID 1 MG, MULTIPLE VITAMIN 10 ML, MAGNESIUM SULF SDV 50% 8 MEQ, THIAMINE INJ 100... INJ SCH (17:59)
[2025-04-21 20:00] VITALS: PULSE 105; RESP 18; O2SAT 97
[2025-04-21 21:00] VITALS: BP 156/98; PULSE 96; RESP 18; TEMP 98.3; O2SAT 96
[2025-04-22 01:00] VITALS: BP 140/93; PULSE 107; RESP 18; TEMP 98.3; O2SAT 97
[2025-04-22 05:00] VITALS: BP 137/94; PULSE 97; RESP 19; TEMP 98.4; O2SAT 98
[2025-04-22 05:41] LABS: Basophils # (auto) 0 10 ^3/uL (0-0.2); Basophils % (auto) 0.8 % (0.0-2.0); Eosinophils # (auto) 0 10 ^3/uL (0-0.8); Eosinophils % (auto) 0.9 % (0.0-7.0); Hematocrit 40.2 % (41.0-53.0); Lymphocytes # (auto) 1.4 10 ^3/uL (0.4-5.4); Lymphocytes % (auto) 25.8 % (10.0-50.0); Mean Corpuscular Hemoglobin 32.7 pg (28.0-32.0); Mean Corpuscular Hgb Conc. 34.8 g/dL (32.0-36.0); Mean Corpuscular Volume 93.9 fL (80.0-100.0); Monocytes # (auto) 0.5 10 ^3/uL (0-1.3); Neutrophils # (auto) 3.4 10 ^3/uL (1.6-8.6); Neutrophils % (auto) 63.5 % (37.0-80.0); Nucleated Red Blood Cells % 0.2 %; Platelet Count (auto) 149 10^3/uL (140-450); Red Blood Cells 4.29 10^6/uL (4.5-5.90); Red Cell Distribution Width 14.4 % (11.8-14.3); White Blood Cell 5.4 10^3/uL (4.4-10.8)
[2025-04-22] MEDS: LORazepam 2MG/ML-1ML VIAL IV PRN (05:59)
[2025-04-22 06:00] LABS: Alanine Aminotransferase 38 U/L (7-40); Albumin 3.9 g/dL (3.2-4.8); Alkaline Phosphatase 90 U/L (46-116); Anion Gap 9 (5-15); Calcium 9.2 mg/dL (8.7-10.4); Carbon Dioxide 25 mmol/L (20-31); Chloride 104 mmol/L (98-107); Glucose 87 mg/dL (74-106); Sodium 138 mmol/L (136-145); Total Protein 6.6 g/dL (5.7-8.2)
[2025-04-22 06:01] LABS: Aspartate Aminotransferase 158 U/L (13-40); BUN/Creatinine Ratio 7.2 (10.0-20.0); Bilirubin, Total 2.1 mg/dL (0.2-1.0); Blood Urea Nitrogen < 5 mg/dL (9-23); Potassium 3.4 mmol/L (3.5-5.1)
[2025-04-22 08:00] VITALS: PULSE 103
[2025-04-22 09:00] VITALS: BP 137/88; PULSE 100; RESP 18; TEMP 98.5; O2SAT 96
[2025-04-22] MEDS ORDERED: DIAZ10TA3 PO ×2 (11:10)
[2025-04-22 12:47] VITALS: BP 153/93; PULSE 105; RESP 18; TEMP 98.1; O2SAT 95
--- NOTE | 2025-04-26 17:35 | DVHSR ---
APPROVED REPORT EXAM: Two-dimensional and M-mode echocardiogram with Doppler and color Doppler. Blood Pressure: 139/97 mmHg INDICATION R/O structural disease RISK FACTORS Obesity: Height: 6', Weight: 308 DIMENSIONS LVDd6.4 (3.8-5.7cm)LA (2D)4.3 (1.9-4.0cm)Aortic Root (2.0-3.7cm) LVDs4.3 (2.5-4.0cm)LA (MM) (1.9-4.0cm)Aortic Cusp Exc (1.5-2.0cm) EF (%) 60.0 (55-70%)Rt. Atrium4.4 (1.9-4.0cm)Asc. Aorta cm IVSd1.1 (0.7-1.1cm)RV (D) (1.8-2.4cm) Mitral Valve MitralMitral Stenosis E wave0.76m/sMV Mean GR.mmHg A wave0.64m/sMV Peak GR.mmHg E/A ratio1.22D MVAcm2 DECEL [id number] 1/2 Timems Aortic Valve Aortic ValveAortic Stenosis V10.89m/Gracie Mean GR.3mmHg V21.19m/Gracie Peak GR.6mmHg LVOT Diameter2.0 (1.8-2.4cm)Doppler AVA2.35cm2 Pulmonic Valve V21.06m/s Other Information Quality : Technically LimitedRhythm : Technically limited study due to body habitus. Conclusion Technically good study. Sinus rhythm. Normal chamber sizes. Valves are normal. EF of 60% with normal RV function. Dopplers unremarkable. No pericardial effusion masses or vegetations.
== END 2025-04-22 12:43 | disposition home or self-care (01) | DRG 641 ==
LOC: ER 19:01 → EDBD 19:01 → OVERFLOW 04-21 04:30 → TELE-WESTW 04-21 17:22
PROVIDERS: ADMIT Student in an Organized Health Care Education/Training Program; ATTEND Student in an Organized Health Care Education/Training Program
DX: E87.6 Hypokalemia (principal); F10.139 Alcohol abuse with withdrawal, unspecified; K92.2 Gastrointestinal hemorrhage, unspecified; E66.2 Morbid (severe) obesity with alveolar hypoventilation; E83.42 Hypomagnesemia; F41.1 Generalized anxiety disorder; G40.909 Epilepsy, unspecified, not intractable, without status epilepticus; I10 Essential (primary) hypertension; F17.210 Nicotine dependence, cigarettes, uncomplicated; R74.01 Elevation of levels of liver transaminase levels; E87.20 Acidosis, unspecified; K76.0 Fatty (change of) liver, not elsewhere classified; Z79.899 Other long term (current) drug therapy; Y90.0 Blood alcohol level of less than 20 mg/100 ml
CPT/HCPCS: 36415; 71045; 76705; 80053; 80307; 80320; 81001; 83605; 83690; 83735; 84100; 85025; 85610; 93005; 93306; 96361; 96374; 99291; G0378; J2405; J2470; J7060

== ENCOUNTER 2025-05-05 09:24 | Emergency (ER) | payer OTHER ==
[~2025-05-05] VITALS: Ht 190.5 cm; Wt 118.0 kg
[~2025-05-05 09:24] MED LIST: DIAZ10TA3 PO
--- NOTE | 2025-05-05 09:51 | ED.PDOC ---
GI ASSESSMENT HPI Comments This is a 20 year old male REESE presenting to the ED with chief complaint of abdominal pain and chest pain. Patient reports that he has been experiencing chest pain with associated abdominal pain for the past hour after drinking 4 [employer] Rangers. Patient relays that he drinks heavily daily and has been seen in [facility] in the past for the same complaint. Patient denies any N/V/D, dizziness, fever, chills, or syncope. Chief Complaint: Withdrawal Time Seen by MD: 09:48 Primary Care Provider: unknown Reviewed Notes: Nurses Notes, Director Of Radiology Notes, Medications, Allergies Allergies: Coded Allergies: No Known Drug Allergy (Verified Allergy, Unknown, 02/04/25) Home Meds Active Scripts Diazepam (Diazepam) 10 Mg Tab, 1 TAB PO BID for 7 Days, #14 TAB Prov:REY CERON MD 04/22/25 Information Source: Patient, Emergency Med Personnel Mode of Arrival: EMS Timing: Hours Duration: Since onset Prehospital treatment: None Quality: Aching Vomitus: None Stool: Normal Severity: Moderate Recent: Ingestion of ETOH Recent Hx of: None Pain Location: Diffuse Modifying Factors: Nothing Associated sign and symptoms: Abdominal Pain Past Medical History PAST MEDICAL HISTORY: Denies Surgical History: Tonsillectomy Family History Family History: Reviewed,noncontributory to illness Social History Smoker: Non-Smoker Alcohol: Heavy Drugs: Denies Drug Use Lives In: Home Constitutional: denies: chills, diaphoresis, fatigue, fever, malaise, sweats, weakness, others EENTM: denies: blurred vision, double vision, ear bleeding, ear discharge, ear drainage, ear pain, ear ringing, eye pain, eye redness, hearing loss, mouth pain, mouth swelling, nasal discharge, nose bleeding, nose congestion, nose pain, photophobia, tearing, throat pain, throat swelling, voice changes, others Respiratory: denies: cough, hemoptysis, orthopnea, SOB at rest, shortness of breath, SOB with excertion, stridor, wheezing, others Cardiovascular: reports: chest pain; denies: dizzy spells, diaphoresis, Dyspnea on exertion, edema, irregular heart beat, left arm pain, lightheadedness, palpitations, PND, syncope, others Gastrointestinal: reports: abdominal pain; denies: abdomen distended, blood streaked bowels, constipated, diarrhea, dysphagia, difficulty swallowing, hematemesis, melena, nausea, poor appetite, poor fluid intake, rectal bleeding, rectal pain, vomiting, others Genitourinary: denies: burning, dysuria, flank pain, frequency, hematuria, incontinence, penile discharge, penile sore, pain, testicle pain, testicle swelling, urgency, others Neurological: denies: dizziness, fainting, headache, left sided numbness, left sided weakness, numbness, paresthesia, pre-existing deficit, right sided numbness, right sided weakness, seizure, speech problems, tingling, tremors, weakness, others Musculoskeletal: denies: back pain, gout, joint pain, joint swelling, muscle pain, muscle stiffness, neck pain, others Integumetry: denies: bruises, change in color, change in hair/nails, dryness, laceration, lesions, lumps, rash, wounds, others Allergic/Immunocompromised: denies: Difficulty Healing, Frequent Infections, Hives, Itching, others Hematologic/Lymphatic: denies: anemia, blood clots, easy bleeding, easy bruising, swollen glands, others Endocrine: denies: excessive hunger, excessive sweating, excessive thirst, excessive urination, flushing, intolerance to cold, intolerance to heat, unex plained weight gain, unexplained weight loss, others Psychiatric: denies: anxiety, bipolar disorder, depression, hopeless, panic disorder, schizophrenia, sleepless, suicidal, others All Other Systems: Reviewed and Negative Physical Exam General Appearance: No Apparent Distress, Normal, Other (Tired appearing) HEENT: Normal ENT Inspection, Pharynx Normal, TMs Normal Neck: Full Range of Motion, Non-Tender, Normal, Normal Inspection Respiratory: Chest Non-Tender, Lungs Clear, No Accessory Muscle Use, No Respiratory Distress, Normal Breath Sounds Cardiovascular: No Edema, No JVD, No Murmur, No Gallop, Normal Peripheral Pulses, Regular Rate/Rhythm Breast Exam: Deferred Gastrointestinal: No Organomegaly, Non Tender, No Pulsatile Mass, Normal Bowel Sounds, Soft Genitalia: Deferred Pelvic: Deferred Rectal: Deferred Extremities: No calf tenderness, Normal capillary refill, Normal inspection, Normal range of motion, Non-tender, No pedal edema Musculoskeletal : Apperance: Normal Neurologic: Alert, financial aid II-XII nml as Tested, No Motor Deficits, Normal Affect, Normal Mood, No Sensory Deficits Cerebellar Function: Normal Reflexes: Normal Skin: Dry, Normal Color, Warm Lymphatic: No Adenopathy Was a procedure done? Was a procedure done?: No GI differential Dx Differential Diagnosis: Other (ETOH intoxication, suicidal ideation, depression) X-Ray, Labs, Meds, VS Vital Signs Date Time Temp Pulse Resp B/P (MAP) Pulse Ox O2 Delivery O2 Flow Rate FiO2 05/05/25 19:12 98.3 126 24 155/106 (122) 95 98.3 05/05/25 14:03 98.8 132 24 149/93 (111) 95 98.8 05/05/25 09:50 95 17 95 Room Air 05/05/25 09:50 98.7 95 17 156/107 (123) 95 98.7 05/05/25 09:37 98.6 112 16 173/99 (123) 96 98.6 Lab Test 05/05/25 09:59 Range/Units White Blood Count 8.3 4.4-10.8 10^3/uL Red Blood Count 4.98 4.5-5.90 10^6/uL Hemoglobin 16.0 13.5-17.5 g/dL Hematocrit 47.1 41.0-53.0 % Mean Corpuscular Volume 94.5 80.0-100.0 fL Mean Corpuscular Hemoglobin 32.2 H 28.0-32.0 pg Mean Corpuscular Hemoglobin Concent 34.0 32.0-36.0 g/dL Red Cell Distribution Width 14.8 H 11.8-14.3 % Platelet Count 377 140-450 10^3/uL Mean Platelet Volume 7.6 6.9-10.8 fL Neutrophils (%) (Auto) 46.1 37.0-80.0 % Lymphocytes (%) (Auto) 37.6 10.0-50.0 % Monocytes (%) (Auto) 13.9 H 0.0-12.0 % Eosinophils (%) (Auto) 0.5 0.0-7.0 % Basophils (%) (Auto) 1.9 0.0-2.0 % Neutrophils # (Auto) 3.8 1.6-8.6 10 ^3/uL Lymphocytes # (Auto) 3.1 0.4-5.4 10 ^3/uL Monocytes # (Auto) 1.1 0-1.3 10 ^3/uL Eosinophils # (Auto) 0 0-0.8 10 ^3/uL Basophils # (Auto) 0.2 0-0.2 10 ^3/uL Nucleated Red Blood Cells 0.2 % Sodium Level 144 136-145 mmol/L Potassium Level 4.1 3.5-5.1 mmol/L Chloride Level 108 H 98-107 mmol/L Carbon Dioxide Level 22 20-31 mmol/L Anion Gap 14 5-15 Blood Urea Nitrogen < 5 L 9-23 mg/dL Creatinine 0.89 0.700-1.30 mg/dL Glomerular Filtration Rate Calc 124 >90 mL/min BUN/Creatinine Ratio 5.6 L 10.0-20.0 Serum Glucose 302 H 74-106 mg/dL Calcium Level 9.6 8.7-10.4 mg/dL Plasma/Serum Blood Alcohol 400.2 *H <10 mg/dL Current Medications Medications (Trade) Dose Ordered Sig/Nasra Route Start Time Stop Time Status Last Admin Sodium Chloride 1,000 ml @ 1,000 mls/hr Q1H ONCE IV 05/05/25 09:45 05/05/25 10:44 DC 05/05/25 10:02 Famotidine (Pepcid Injection) 20 mg ONCE ONCE IV 05/05/25 09:45 05/05/25 09:46 DC 05/05/25 10:00 Ondansetron HCl (Zofran) 4 mg ONCE ONCE IV 05/05/25 09:45 05/05/25 09:46 DC 05/05/25 10:00 Lorazepam (Ativan Inj) 0.5 mg ONCE ONCE IV 05/05/25 19:15 05/05/25 19:16 DC 05/05/25 19:07 X-Ray, Labs, Meds, VS Comment This patient was handed off to me by Dr. Clemente. Patient was in the facility for nearly 10 hours at which time, I attempted to discharge the patient. Nursing states that the patient's then spoke of suicidal ideation and therefore, tele psych has been ordered to evaluate the patient's mental status. Patient has been medically cleared for tele psych consult. Patient received a psychiatric evaluation by Dr. Arana. He and I discussed his assessment and agreed with a plan moving forward. Patient will be discharged and given a prescription for Zoloft 50 mg daily as well as gabapentin 300 mg 3 times a day. Patient has been advised to follow up with primary care provider for psych referral and evaluation as the patient has received psychiatric assistance for past. Patient denies SI or HI at time of departure. Time of 1ST Reevaluation: 21:44 Reevaluation 1ST: Improved Consultation: PCP, Psychiatry Patient Education/Counseling: Diagnosis, Treatment Family Education/Counseling: Diagnosis, Treatment, No Family Present Additional Information Previous visits reviewed: 04/21/25 for alcohol withdrawal The following tests were ordered, and results were reviewed by me: CBC, BMP, ETOH Additional Information was gathered from interviewing the following independent historians: EMS I reviewed and agreed with the following test results read by other providers: None I discussed treatment and results with medical personnel and: patient Comprehensive systems review obtained and negative except for what is stated in the HPI. SEPSIS Sepsis Screen Date sepsis recognized/suspect: May 05, 2025 Time Sepsis recognized/suspect: 924 Recent Procedure: No On Antibiotic Therapy: No Respiratory Rate >20: No Heart Rate >90: Yes Temp<36 C (96.8 F) or >38.3 C: No SBP <90 or MAP <65 mmHG: No New Acute Mental Status Change: No Is the patient on CPAP, BIPAP,: No Physician Orders * Abalone Fisherman Consult (05/05/25 ) *Tele Psych Consult (05/05/25 19:41) Vital Signs Date Time Temp Pulse Resp B/P (MAP) Pulse Ox O2 Delivery O2 Flow Rate FiO2 05/05/25 19:12 98.3 126 24 155/106 (122) 95 98.3 05/05/25 14:03 98.8 132 24 149/93 (111) 95 98.8 05/05/25 09:50 95 17 95 Room Air 05/05/25 09:50 98.7 95 17 156/107 (123) 95 98.7 05/05/25 09:37 98.6 112 16 173/99 (123) 96 98.6 Laboratory Tests Test 05/05/25 09:59 White Blood Count 8.3 10^3/uL (4.4-10.8) Medications Medications Dose Ordered Sig/Nasra Route Start Time Stop Time Status Last Admin Dose Admin Famotidine 20 mg ONCE ONCE IV 05/05/25 09:45 05/05/25 09:46 DC 05/05/25 10:00 Lorazepam 0.5 mg ONCE ONCE IV 05/05/25 19:15 05/05/25 19:16 DC 05/05/25 19:07 Ondansetron HCl 4 mg ONCE ONCE IV 05/05/25 09:45 05/05/25 09:46 DC 05/05/25 10:00 Sodium Chloride 1,000 ml @ 1,000 mls/hr Q1H ONCE IV 05/05/25 09:45 05/05/25 10:44 DC 05/05/25 10:02 Departure 1 Departure Time of Disposition: 19:43 Impression: Primary Impression: Alcohol abuse Additional Impressions: Alcohol intoxication Suicidal ideation Disposition: HOME / SELF CARE / HOMELESS Condition: Stable Additional Instructions: Advised patient utilize medication as directed until completion. Patient needs to follow up with primary care provider for mental health referral and evaluation to aid in long-term management. e-Prescriptions Gabapentin (Gabapentin) 300 Mg Cap 1 CAP PO TID, #63 CAP 0 Refills Prov: GEOVANNY MELENDEZ PAC 05/05/25 Sertraline Hcl (Zoloft) 50 Mg Tab 1 TAB PO DAILY, #21 TAB 0 Refills Prov: GEOVANNY MELENDEZ PAC 05/05/25 Discharged With: Self, Friend Critical Care Note Critical Care Time?: No Stability Stability form required: No Heart Score Heart Score: Heart Score Response (Comments) Value History N/A 0 EKG N/A 0 Age N/A 0 Risk Factors N/A 0 Troponin N/A 0 Total 0 I personally scribed for NATALYA CLEMENTE MD ([email or web address]) on 05/05/25 at 09:51. E lectronically submitted by Lobo Watson ([email or web address]). NATALYA CLEMENTE MD May 05, 2025 09:51 GEOVANNY MELENDEZ PAC May 05, 2025 19:44
[2025-05-05] MEDS: ONDANSETRON HCL 4 MG/2 ML VIAL IV ONE (10:00)
[2025-05-05] MEDS: FAMOTIDINE (10MG/ML) 2ML VL IV ONE (10:00)
[2025-05-05] MEDS: SODIUM CHLORIDE 0.9% 1,000 ML IV ONE (10:02)
[2025-05-05 10:22] LABS: Potassium 4.1 mmol/L (3.5-5.1); Sodium 144 mmol/L (136-145)
[2025-05-05 10:23] LABS: Anion Gap 14 (5-15); Calcium 9.6 mg/dL (8.7-10.4); Carbon Dioxide 22 mmol/L (20-31)
[2025-05-05 10:26] LABS: Chloride 108 mmol/L (98-107)
[2025-05-05 10:30] LABS: BUN/Creatinine Ratio 5.6 (10.0-20.0); Blood Urea Nitrogen < 5 mg/dL (9-23); Glucose 302 mg/dL (74-106)
[2025-05-05 10:32] LABS: Basophils # (auto) 0.2 10 ^3/uL (0-0.2); Basophils % (auto) 1.9 % (0.0-2.0); Eosinophils # (auto) 0 10 ^3/uL (0-0.8); Eosinophils % (auto) 0.5 % (0.0-7.0); Hematocrit 47.1 % (41.0-53.0); Lymphocytes # (auto) 3.1 10 ^3/uL (0.4-5.4); Lymphocytes % (auto) 37.6 % (10.0-50.0); Mean Corpuscular Hemoglobin 32.2 pg (28.0-32.0); Mean Corpuscular Volume 94.5 fL (80.0-100.0); Monocytes # (auto) 1.1 10 ^3/uL (0-1.3); Monocytes % (auto) 13.9 % (0.0-12.0); Neutrophils # (auto) 3.8 10 ^3/uL (1.6-8.6); Neutrophils % (auto) 46.1 % (37.0-80.0); Nucleated Red Blood Cells % 0.2 %; Platelet Count (auto) 377 10^3/uL (140-450); Red Blood Cells 4.98 10^6/uL (4.5-5.90); Red Cell Distribution Width 14.8 % (11.8-14.3); White Blood Cell 8.3 10^3/uL (4.4-10.8)
[2025-05-05 10:50] LABS: Blood Alcohol 400.2 mg/dL (<10)
[2025-05-05] MEDS: LORazepam 2MG/ML-1ML VIAL IV ONE (19:07)
[2025-05-05 19:12] VITALS: TEMP 98.3
--- NOTE | 2025-05-05 21:39 | DVHINCON2 ---
Date of Service if different f: May 05, 2025 Time of Service: 21:07 Consultation ([facility]) Consulting Physician: DARRYL CONROY MD Labs Laboratory Tests Test 05/05/25 09:59 White Blood Count 8.3 10^3/uL (4.4-10.8) Red Blood Count 4.98 10^6/uL (4.5-5.90) Hemoglobin 16.0 g/dL (13.5-17.5) Hematocrit 47.1 % (41.0-53.0) Mean Corpuscular Volume 94.5 fL (80.0-100.0) Mean Corpuscular Hemoglobin 32.2 pg (28.0-32.0) Mean Corpuscular Hemoglobin Concent 34.0 g/dL (32.0-36.0) Red Cell Distribution Width 14.8 % (11.8-14.3) Platelet Count 377 10^3/uL (140-450) Mean Platelet Volume 7.6 fL (6.9-10.8) Neutrophils (%) (Auto) 46.1 % (37.0-80.0) Lymphocytes (%) (Auto) 37.6 % (10.0-50.0) Monocytes (%) (Auto) 13.9 % (0.0-12.0) Eosinophils (%) (Auto) 0.5 % (0.0-7.0) Basophils (%) (Auto) 1.9 % (0.0-2.0) Neutrophils # (Auto) 3.8 10 ^3/uL (1.6-8.6) Lymphocytes # (Auto) 3.1 10 ^3/uL (0.4-5.4) Monocytes # (Auto) 1.1 10 ^3/uL (0-1.3) Eosinophils # (Auto) 0 10 ^3/uL (0-0.8) Basophils # (Auto) 0.2 10 ^3/uL (0-0.2) Nucleated Red Blood Cells 0.2 % Sodium Level 144 mmol/L (136-145) Potassium Level 4.1 mmol/L (3.5-5.1) Chloride Level 108 mmol/L (98-107) Carbon Dioxide Level 22 mmol/L (20-31) Anion Gap 14 (5-15) Blood Urea Nitrogen < 5 mg/dL (9-23) Creatinine 0.89 mg/dL (0.700-1.30) Glomerular Filtration Rate Calc 124 mL/min (>90) BUN/Creatinine Ratio 5.6 (10.0-20.0) Serum Glucose 302 mg/dL (74-106) Calcium Level 9.6 mg/dL (8.7-10.4) Plasma/Serum Blood Alcohol 400.2 mg/dL (<10) Appearance: Stated age Psychomotor activity: WNL Behavioral: Cooperative Eye contact: Appropriate Speech: WNL Affect: Appropriate, Mood Congruent Mood: Anxious Thought processes: Linear/Goal-directed Thought content: WNL Suicidal ideations: Absent Homicidal ideations: Absent Orientation: Person, Place, Time, Situation Memory intact: Recent Intellect: Average Abstractability: WNL Concentration: Adequate Attention: Adequate Judgement: WNL Insight: Fair Vitals Vital Signs Date Time Temp Pulse Resp B/P (MAP) Pulse Ox O2 Delivery O2 Flow Rate FiO2 05/05/25 19:12 98.3 126 24 155/106 (122) 95 98.3 05/05/25 09:50 Room Air Treatment plan discussed: With staff Medication adjusted: Yes Labs ordered: No Psychotherapy provided: No Type: Voluntary History of Present Illness Reason for Consult : psychiatric evaluation PER ED PHYSICIAN NOTE: This is a 20 year old male BIBA presenting to the ED with chief complaint of abdominal pain and chest pain. Patient reports that he has been experiencing chest pain with associated abdominal pain for the past hour after drinking 4 [employer]. Patient relays that he drinks heavily daily and has been seen in [facility] in the past for the same complaint. Patient denies any N/V/D, dizziness, fever, chills, or syncope. PSYCHIATRIST HPI: The patient was seen and evaluated at [facility] ED via telepsychiatry platform.20 yr old male reported he feels so overwhelmed and anxious and when this happens he sometimes thinks about suicide. He stated he has no plan or intent to do this and does not want to do it. He reported he drinks a six pack of 9.5% beer throughout the day. He has drank this heavily for the past two weeks. He sticks to beer and avoids liquor. He started drinking at age 14, but he started drinking problematic when he turned 19. He denied having any DUI or YANNA. He has had blackouts in the past. He thinks about alcohol frequently. He said he gets anxious when he doesn't have it and thinks about how badly he wants to drink. He noted he has had auditory and visual hallucinations after stopping drinking. He denied having seizures. He reported he had anxiety prior to incrasing his alcohol use. He does not like leaving his home. He noted he has difficulty concentrating and being in large groups or talking in front of people. He frequently has panic attacks. He denied having suicidal or homicidal ideation or auditory or visual hallucinations. Past Psychiatric History : Diagnosed with anxiety and treated with on sertraline and was on it from [age] yrs old He has no past suicide attempts. No past hospitalizations. Past Medical History: none Current Medications: none NKDA Substance use: Alcohol use as indicated in the HPI. Denied other substance use. Social History : Lives in [place] with parents and three siblings. He is oldest of four. Graduated HS and did some college. Unemployed, but [employer] sometimes. Diagnosis: ALCOHOL USE DISORDER, SEVERE; SOCIAL ANXIETY DISORDER Formulation: This 20 yr old male appears to suffer from alcohol use disorder and recent intoxication and social anxiety disorder. He is a moderate risk for alcohol withdrawal syndrome. He may benefit from starting zoloft to help reduce anxiety and gabapentin to help reduce anxiety and cravings He is not suicidal and does not warrant hospitalization. Plan: 1. Safety. The patient is a low risk for self harm and may be managed as an outpatient. 2. Legal-voluntary. 3. Medication: Recommend starting Zoloft 50mg qam for anxiety and Gabapentin 300mg TID for anxiety and craving reduction. Follow up with outpatient mental health for medication management and therapy. Recommend refraining from alcohol use and getting into a alcohol rehab program such as AA. Recommend treating for alcohol withdrawal and consider a benzo taper and or IM consult for alcohol withdrawal syndrome. 4. Contact psychiatry if further evaluation or follow up is desired. 5. case discussed with ED Physician medical record assistant Robert Lagos and RN February. Assessment/Diagnosis/Plan Reviewed: Labs, Medications, Previous Orders DARRYL CONROY MD May 05, 2025 21:08
[2025-05-05] MEDS ORDERED: GABA-1250 PO (21:45)
[2025-05-05] MEDS ORDERED: SERT50TA PO (21:45)
[2025-05-05 22:22] VITALS: BP 146/89; PULSE 111; RESP 20; O2SAT 97
== END 2025-05-05 22:30 | disposition home or self-care (01) ==
LOC: EDBD 09:24 → ER 09:24
DX: F10.129 Alcohol abuse with intoxication, unspecified (principal); R45.851 Suicidal ideations; Z90.89 Acquired absence of other organs; Z79.899 Other long term (current) drug therapy; Y90.9 Presence of alcohol in blood, level not specified
CPT/HCPCS: 36415; 80048; 80320; 85025; 96361; 96374; 96375; 99285; J2060; J2405; J3490; J7030

== ENCOUNTER 2025-05-06 02:16 | Inpatient (IN) | payer OTHER ==
[~2025-05-06] VITALS: Ht 190.5 cm; Wt 182.0 kg
[~2025-05-06 02:16] MED LIST changes: +GABA-1250 PO; +SERT50TA PO
--- NOTE | 2025-05-06 02:49 | ED.PDOC ---
Psychiatric HPI Comments 20-year-old male who came to ER via EMS for anxiety. Patient has a history of alcohol abuse and social anxiety. Patient was just discharged here a few hours ago for alcohol intoxication. As the patient got home, he took his anti anxiety meds (Ativan) drank alcohol again, and he started having episodes of nausea and vomiting afterwards. States he started becoming anxious again so he decided to come to the ER. Chief Complaint: Anxiety Time Seen by MD: 02:46 Primary Care Provider: unknown Reviewed Notes: Computator Notes Information Source: Emergency Med Personnel Mode of Arrival: EMS Severity: Unable to Care for Self, Unable to Control Self Severity of Pain: Moderate Severity of Mental Status: Moderate Severity of Symptoms: Moderate Timing: Minutes Duration: Since onset Presents with: Anxiety, Alcohol Intoxication Ingestion: ETOH Circumstance: Medical Clearance, Causing a Disturbance Current substance abuse: ETOH Stressors: Relationships History of: Anxiety, Alcoholism Associated signs and symptoms: Depression, Hopeless, Anxiety, ETOH Review of Systems REVIEW OF SYSTEMS: No fever, no chills, or fatigue HEENT: No sore throat, no earache, no congestion, no neck pain. Cardiac: No chest pain. No palpitations. Lungs: No shortness of breath, no cough. GI: (+) nausea, (+) vomiting, no diarrhea, no constipation, no abdominal pain : No dysuria, frequency, or urgency. No hematuria. Musculoskeletal: No joint pain , no joint swelling, no extremity edema. Skin: No rash, no itching. Neuro: No headache, no dizziness, no weakness Psych: (+) anxiety Vital Signs Vital Signs Date Time Temp Pulse Resp B/P (MAP) Pulse Ox O2 Delivery O2 Flow Rate FiO2 05/06/25 05:09 98 Room Air* 0 21 05/06/25 05:05 98.0 119 20 143/85 (104) 98.0 Physical Exam General: Awake, alert and oriented. Patient is diaphoretic Skin: Skin in warm, moist and intact. Appropriate color for ethnicity. Nailbeds pink with no cyanosis. HEENT: The head is normocephalic and atraumatic. Conjunctivae are clear without exudates or hemorrhage. Sclera is non-icteric. EOM are intact. No signs of nystagmus. Eyelids are normal in appearance without swelling or lesions. Oral mucosa is pink and moist Neck: The neck is supple with normal range of motion. No JVD. Cardiac: Rapid rate, regular rhythm. No murmurs, gallops, or rubs are auscultated. Respiratory: No signs of respiratory distress. Lung sounds are clear in all lobes bilaterally without rales, rhonchi, or wheezes. Abdominal: Abdomen is soft, non-tender without distention. Bowel sounds are present and normoactive in all four quadrants. Extremities: Upper and lower extremities are atraumatic in appearance without deformity or edema. Neurological: The patient is awake, alert and oriented to person, place, and time with normal speech. Speech is clear. There is no facial asymmetry. Psychiatric: Patient appears anxious and restless Past Medical History PAST MEDICAL HISTORY: Anxiety Surgical History: Tonsillectomy Family History Family History: Reviewed,noncontributory to illness Social History Smoker: Non-Smoker Alcohol: Heavy Drugs: Denies Drug Use Lives In: Home Was a procedure done? Was a procedure done?: No Psych Differential Dx Psych. Differential Dx: Anxiety, Depression OD Differential Dx: Alcohol Abuse, Anxiety X-Ray, Labs, Meds, VS Vital Signs Date Time Temp Pulse Resp B/P (MAP) Pulse Ox O2 Delivery O2 Flow Rate FiO2 05/06/25 05:09 98 Room Air* 0 21 05/06/25 05:05 98.0 119 20 143/85 (104) 95 98.0 05/06/25 02:34 122 05/06/25 02:17 98.3 123 14 166/92 (116) 97 98.3 Lab Test 05/06/25 07:55 05/06/25 03:09 Range/Units White Blood Count 11.2 #H 4.4-10.8 10^3/uL Red Blood Count 4.63 4.5-5.90 10^6/uL Hemoglobin 14.8 13.5-17.5 g/dL Hematocrit 43.2 41.0-53.0 % Mean Corpuscular Volume 93.3 80.0-100.0 fL Mean Corpuscular Hemoglobin 31.9 28.0-32.0 pg Mean Corpuscular Hemoglobin Concent 34.2 32.0-36.0 g/dL Red Cell Distribution Width 14.9 H 11.8-14.3 % Platelet Count 298 140-450 10^3/uL Mean Platelet Volume 7.4 6.9-10.8 fL Neutrophils (%) (Auto) 74.0 37.0-80.0 % Lymphocytes (%) (Auto) 15.7 10.0-50.0 % Monocytes (%) (Auto) 9.2 0.0-12.0 % Eosinophils (%) (Auto) 0.1 0.0-7.0 % Basophils (%) (Auto) 1.0 0.0-2.0 % Neutrophils # (Auto) 8.3 1.6-8.6 10 ^3/uL Lymphocytes # (Auto) 1.8 0.4-5.4 10 ^3/uL Monocytes # (Auto) 1.0 0-1.3 10 ^3/uL Eosinophils # (Auto) 0 0-0.8 10 ^3/uL Basophils # (Auto) 0.1 0-0.2 10 ^3/uL Nucleated Red Blood Cells 0.0 % Sodium Level 142 136-145 mmol/L Potassium Level 3.7 3.5-5.1 mmol/L Chloride Level 105 98-107 mmol/L Carbon Dioxide Level 25 20-31 mmol/L Anion Gap 12 5-15 Blood Urea Nitrogen < 5 L 9-23 mg/dL Creatinine 0.69 L 0.700-1.30 mg/dL Glomerular Filtration Rate Calc 134 >90 mL/min BUN/Creatinine Ratio 7.2 L 10.0-20.0 Serum Glucose 93 # 74-106 mg/dL Calcium Level 9.6 8.7-10.4 mg/dL Magnesium Level 1.4 L 1.6-2.6 mg/dL Total Bilirubin 0.8 0.2-1.0 mg/dL Aspartate Amino Transferase (AST) 71 H <34 U/L Alanine Aminotransferase (ALT) 53 H 7-40 U/L Alkaline Phosphatase 72 46-116 U/L Total Protein 7.3 5.7-8.2 g/dL Albumin 4.4 3.2-4.8 g/dL Thyroid Stimulating Hormone (TSH) 3.25 0.55-4.78 uIU/mL Plasma/Serum Blood Alcohol 7.6 <10 mg/dL Troponin I High Sensitivity 5 </=54 ng/L Current Medications Medications (Trade) Dose Ordered Sig/Nasra Route Start Time Stop Time Status Last Admin Ondansetron HCl (Zofran Po) 4 mg ONCE ONCE PO 05/06/25 02:30 05/06/25 02:31 DC 05/06/25 05:09 Sodium Chloride 1,000 ml @ 1,000 mls/hr Q1H ONCE IVB 05/06/25 05:15 05/06/25 06:14 DC 05/06/25 05:51 Thiamine HCl 100 mg NOW ONCE PO 05/06/25 05:15 05/06/25 05:16 DC 05/06/25 05:46 Multivitamins (Mvi Tab) 1 tab NOW ONCE PO 05/06/25 05:15 05/06/25 05:16 DC 05/06/25 05:46 Folic Acid 1 mg NOW ONCE PO 05/06/25 05:15 05/06/25 05:16 DC 05/06/25 05:46 Lorazepam (Ativan Inj) 2 mg STAT ONCE IV 05/06/25 05:15 05/06/25 05:16 DC 05/06/25 05:47 Time of 1ST Reevaluation: 02:42 Reevaluation 1ST: Unchanged Patient Education/Counseling: Need For Follow Up Family Education/Counseling: No Family Present Departure 1 Departure Time of Disposition: 05:07 Impression: Primary Impression: Sinus tachycardia Additional Impression: Alcohol withdrawal Disposition: 09 ADMITTED INPATIENT Condition: Serious Comments 20-year-old male with a history of alcohol abuse presents to the emergency department with anxiety, who presented diaphoretic tachycardic. Patient continues to report severe anxiety and agitation during the ED observation. We will admit for treatment of alcohol withdrawal symptoms. Critical Care Note Critical Care Time?: No Stability Stability form required: No Heart Score Heart Score: Heart Score Response (Comments) Value History Slightly Suspicious 0 EKG Normal 0 Age <45 0 Risk Factors No known risk factors 0 Troponin Normal limit 0 Total 0 I personally scribed for GHULAM SANTIAGO MD ([email or web address]) on 05/06/25 at 02:49. Electronically submitted by Gomez Ulloa ([email or web address]). I personally scribed for GHULAM SANTIAGO MD ([email or web address]) on 05/06/25 at 05:27. Electronically submitted by Gomez Ulloa ([email or web address] [employer]). GHULAM SANTIAGO MD May 06, 2025 02:49
[2025-05-06 05:09] VITALS: O2SAT 98
[2025-05-06] MEDS: ONDANSETRON ODT 4 MG TAB PO ONE (05:09)
[2025-05-06] MEDS: THIAMINE HCL 100 MG TAB PO ONE (05:46)
[2025-05-06] MEDS: FOLIC ACID 1 MG TAB PO ONE (05:46)
[2025-05-06] MEDS: MULTIPLE VITAMIN TAB PO ONE (05:46)
[2025-05-06] MEDS: LORazepam 2MG/ML-1ML VIAL IV ONE (05:47)
[2025-05-06] MEDS: SODIUM CHLORIDE 0.9% 1,000 ML IVB ONE (05:51)
--- NOTE | 2025-05-06 06:05 | ECG ---
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
[2025-05-06] MEDS ORDERED: MORPHINE SULFATE INJ 2 MG/ml SYRG IV PRN (08:00)
[2025-05-06] MEDS ORDERED: MULTIPLE VITAMIN TAB PO ONE (08:00)
[2025-05-06] MEDS ORDERED: ACETAMINOPHEN 325 MG TAB PO PRN (08:00)
[2025-05-06] MEDS ORDERED: FOLIC ACID 1 MG TAB PO ONE (08:00)
[2025-05-06] MEDS ORDERED: THIAMINE HCL 100 MG TAB PO ONE (08:00)
[2025-05-06] MEDS ORDERED: NITROGLYCERIN 0.4 MG SL TAB SL PRN (08:00)
[2025-05-06] MEDS ORDERED: ONDANSETRON HCL 4 MG/2 ML VIAL IV PRN (08:00)
[2025-05-06 08:10] LABS: Basophils # (auto) 0.1 10 ^3/uL (0-0.2); Eosinophils # (auto) 0 10 ^3/uL (0-0.8); Eosinophils % (auto) 0.1 % (0.0-7.0); Hematocrit 43.2 % (41.0-53.0); Hemoglobin 14.8 g/dL (13.5-17.5); Lymphocytes # (auto) 1.8 10 ^3/uL (0.4-5.4); Lymphocytes % (auto) 15.7 % (10.0-50.0); Mean Corpuscular Hemoglobin 31.9 pg (28.0-32.0); Mean Corpuscular Hgb Conc. 34.2 g/dL (32.0-36.0); Mean Corpuscular Volume 93.3 fL (80.0-100.0); Monocytes % (auto) 9.2 % (0.0-12.0); Neutrophils # (auto) 8.3 10 ^3/uL (1.6-8.6); Platelet Count (auto) 298 10^3/uL (140-450); Red Blood Cells 4.63 10^6/uL (4.5-5.90); Red Cell Distribution Width 14.9 % (11.8-14.3); White Blood Cell 11.2 10^3/uL (4.4-10.8)
--- NOTE | 2025-05-06 08:12 | DVHHP2 ---
History of Present Illness Reason for Visit: ETOH abuse and withdrawals History of Present Illness Arnaldo Strauss is a 20-year-old male with past medical history of hypertension, obesity, ETOH abuse, generalized anxiety disorder, and tonsillectomy who presents to the ED with anxiety and combination use of diazepam with alcohol u se. Patient states that he did not know that he was not supposed to take alcohol and his medications together. Patient reports that he drinks about 6-7 beers per day, smokes 3 cigarettes per week, and denies illicit drug use. Patient states that he lives at home with his family. Patient denies any chest pain, shortness of breath, fever, chills, lightheadedness, weakness, dizziness, abdominal pain nausea, vomiting, diarrhea, recent sick contacts, recent ingestion of spoiled food, recent travels, or recent trauma or injury. Cardiovascular: HTN Past Medical History Obesity Alcohol abuse Generalized anxiety disorder Past Surgical History: Tonsillectomy Family History: DM, Other (Father with diabetes and mom with obesity) Smoke: <1 pack per day ALCOHOL: heavy Drugs: None Lives: with Family Domestic Violence: Neg Review of Systems Constitutional: Yes: Other (Anxiety) Allergies: Coded Allergies: No Known Drug Allergy (Verified Allergy, Unknown, 02/04/25) Exam Vital Signs Vital Signs Date Time Temp Pulse Resp B/P (MAP) Pulse Ox O2 Delivery O2 Flow Rate FiO2 05/06/25 08:00 98.9 99 18 164/115 (131) 98 98.9 05/06/25 05:09 Room Air* 0 21 General Appearance: Alert, Oriented X3, Cooperative, No acute distress HEENT: Atraumatic, PERRLA, EOMI, Mucous membr. moist/pink Respiratory: Clear to auscultation, Normal air movement Cardiovascular: Normal S1, Normal S2, No murmurs Abdominal: Normal bowel sounds, Soft Extremities: No clubbing, No cyanosis, No edema, Normal pulses Skin: No significant lesion Neuro: Normal gait, Normal speech, Strength at 5/5 X4 ext, Normal tone, Sensation intact Psych/Mental Status: Mental status NL, Mood NL Labs/Xrays Labs Test 05/06/25 07:55 05/06/25 03:09 Range/Units Troponin I High Sensitivity 5 </=54 ng/L Assessment/Plan Assessment/Plan Assessment ETOH abuse and withdrawals Leukocytosis unclear etiology Hypertension Obesity Tobacco use History of generalized anxiety disorder History of tonsillectomy Plan Admit to tele IV antibiotics-ceftriaxone CILA protocol Folic acid Multivitamins Thiamine NS 1 L given ED Antiemetics EKG Troponin Flu test Chest x-ray UDS Diet Home medications reconciled DVT prophylaxis-not indicated patient ambulating PUD prophylaxis-not indicated history of GERD or GI bleed Discussed plan of care with patient and nurse [facility] score 1 point Counseled patient on cessation of alcohol use and tobacco use Counseled patient on lifestyle modifications, diet, and exercise Plan discussed with: Patient My Orders Orders - LINO GILES BAKER OPERATOR AUTOMATIC Procedure Category Date Status Time Comprehensive LAB 05/06/25 Transmitted Metabolic Panel 07:58 Blood Alcohol LAB 05/06/25 Transmitted 07:58 Drug Screen LAB 05/06/25 Transmitted 07:58 Urinalysis LAB 05/06/25 Transmitted 07:58 Architectural Drafting Instructor ED NURSING 05/06/25 Transmitted 07:58 Magnesium LAB 05/06/25 Transmitted 07:58 Thiamine 100mg Po PHA 05/06/25 Transmitted Daily 10:00 Folic Acid 1mg Po PHA 05/06/25 Transmitted Daily 10:00 Mvi Tablet Po Daily PHA 05/06/25 Transmitted 10:00 Thiamine 100mg Po Now PHA 05/06/25 Transmitted 08:00 Mvi 1 Tablet Po Now PHA 05/06/25 Transmitted 08:00 Folic Acid 1mg Po Now PHA 05/06/25 Transmitted 08:00 Admit ADMIT 05/06/25 Transmitted 07:58 Allergies BANNER 05/06/25 In Process 07:58 Code Status CODE 05/06/25 Transmitted 07:58 Ondansetron Hcl PHA 05/06/25 Transmitted (Zofran) 08:00 Cardiac DIET 05/06/25 Transmitted Diet-2gna,Lofat,Lochol Breakfast Acetaminophen Tablet PHA 05/06/25 Transmitted (Tylenol Tablet) 08:00 Sequential CRISTIAN 05/06/25 In Process Compression Device Nitroglycerin PHA 05/06/25 Transmitted Sublingual (Ntrostat 08:00 Morphine Sulfate PHA 05/06/25 Transmitted Injection 08:00 Stat Ekg For Chest CRISTIAN 05/06/25 In Process Pain 07:58 Notify Of Changes CRISTIAN 05/06/25 In Process From Base 07:58 Amusement Centre Manager For CRISTIAN 05/06/25 In Process 24 Hours 07:58 Emergency Dysrhythmia CRISTIAN 05/06/25 In Process Protocol 07:58 Rhythm Strips Once CRISTIAN 05/06/25 In Process Every Shift 07:58 Oxygen By Nasal RT 05/06/25 Transmitted Cannula 07:58 Date of Service: May 06, 2025 Billing Provider: LINO GILES Common Visit Codes: [id number] INP/OBS CARE (HIGH) LINO GILES May 06, 2025 08:12
[2025-05-06 08:20] LABS: Chloride 105 mmol/L (98-107); Potassium 3.7 mmol/L (3.5-5.1); Sodium 142 mmol/L (136-145)
[2025-05-06 08:21] LABS: Anion Gap 12 (5-15); Calcium 9.6 mg/dL (8.7-10.4); Carbon Dioxide 25 mmol/L (20-31)
[2025-05-06 08:26] LABS: Glucose 93 mg/dL (74-106)
[2025-05-06 08:28] LABS: BUN/Creatinine Ratio 7.2 (10.0-20.0); Blood Urea Nitrogen < 5 mg/dL (9-23)
[2025-05-06 08:40] LABS: Alkaline Phosphatase 72 U/L (46-116); Total Protein 7.3 g/dL (5.7-8.2)
[2025-05-06 08:41] LABS: Albumin 4.4 g/dL (3.2-4.8); Bilirubin, Total 0.8 mg/dL (0.2-1.0)
[2025-05-06 08:47] LABS: Alanine Aminotransferase 53 U/L (7-40); Aspartate Aminotransferase 71 U/L (<34)
[2025-05-06 09:53] LABS: Blood Alcohol 7.6 mg/dL (<10)
[2025-05-06] MEDS ORDERED: DIAZEPAM PO SCH (10:00)
[2025-05-06] MEDS ORDERED: SERTRALINE HCL 50 MG TAB PO SCH (10:00)
[2025-05-06 10:06] LABS: Magnesium 1.4 mg/dL (1.6-2.6)
--- NOTE | 2025-05-06 10:24 | DVH ---
EXAM: XR Chest, 1 View CLINICAL INDICATION: r/o pna TECHNIQUE: Frontal view of the chest. COMPARISON: XY CHEST XRAY 1 VIEW on DOS: 04/21/25 FINDINGS: LUNGS AND PLEURAL SPACES: Unremarkable. No consolidation. No pneumothorax. HEART: Unremarkable. No cardiomegaly. MEDIASTINUM: Unremarkable. Normal mediastinal contour. BONES/JOINTS: Unremarkable. No acute fracture. OTHER FINDINGS: . IMPRESSION: No acute cardiopulmonary process.
[2025-05-06 10:47] LABS: Urine Bacteria None Seen /hpf (None Seen)
[2025-05-06 10:59] LABS: Urine Blood Negative /uL (Negative); Urine Clarity Clear (Clear); Urine Color Yellow (Yellow); Urine Mucus FEW (None Seen); Urine Protein, UAD TRACE (Negative); Urine Specific Gravity 1.029 (1.001-1.035); Urine Squamous Epithelial Cell FEW /hpf (<5); Urine Urobilinogen 3 mg/dL (Negative); Urine WBC 1 /HPF (0-3)
[2025-05-06 11:19] LABS: Amphetamine Screen, Urine Neg (NEGATIVE); Barbiturate Scree,Urine Neg (NEGATIVE); Benzodiazephine Screen, Urine Pos (NEGATIVE); Cannabinoid Screen, Urine Neg (NEGATIVE); Cocaine Screen, Urine Neg (NEGATIVE); Opiate Scree,Urine Neg (NEGATIVE); Phencyclidine Screen, Urine Neg (NEGATIVE)
[2025-05-06 11:49] LABS: Rapid Influenza A Negative (Negative); Rapid Influenza B Negative (Negative)
[2025-05-06] MEDS ORDERED: GABAPENTIN 300 MG CAP PO SCH (14:00)
[2025-05-06 18:03] VITALS: BP 148/80; PULSE 88; RESP 20; TEMP 98.8; O2SAT 98
[2025-05-06 18:19] VITALS: BP 136/80; PULSE 81; RESP 20; TEMP 98.3; O2SAT 99
[2025-05-06 21:06] VITALS: BP 136/80; PULSE 96; RESP 16; TEMP 98.3; O2SAT 99
[2025-05-07] VITALS (7 sets, daily range): BP systolic 128–169; BP diastolic 85–110; PULSE 20–102; RESP 18–20; TEMP 97.2–98.8; O2SAT 96–99
[2025-05-07] MEDS: THIAMINE HCL 100 MG TAB PO SCH (09:25)
[2025-05-07] MEDS: MULTIPLE VITAMIN TAB PO SCH (09:26)
[2025-05-07] MEDS: cefTRIAXone 1GM/50ML D5W 50 ML IV SCH (09:26)
[2025-05-07] MEDS: FOLIC ACID 1 MG TAB PO SCH (09:26)
--- NOTE | 2025-05-07 11:09 | DVHPN2 ---
Subjective denies any pain/mild shakes/ Changes from previous H/P or p: No Changes Objective Vitals Vital Signs Date Time Temp Pulse Resp B/P (MAP) Pulse Ox O2 Delivery O2 Flow Rate FiO2 05/07/25 09:00 98.1 102 20 128/85 (99) 98 98.1 05/07/25 08:00 Room Air* 0 21 Intake/Output Intake and Output 05/07/25 07:00 Intake Total 400 ml Balance 400 ml Intake Oral 400 ml # Voids 1 General Appearance: Alert, Oriented X3, Cooperative, No acute distress Lungs: Clear to auscultation Cardiovascular: Regular rate, Normal S1, Normal S2 Abdomen: Normal bowel sounds, Soft, No tenderness, No hepatospenomegaly Musculoskeletal: Normal sensory function, Normal motor function Neuro: Normal speech, Strength at 5/5 X4 ext, Normal tone, Sensation intact, C ranial nerves 3-12 NL Psych/Mental Status: Mental status NL, Mood NL Medications Current Medications Medications Dose Ordered Sig/Nasra Route Start Time Stop Time Status Last Admin Dose Admin Thiamine HCl 100 mg DAILY PO 05/07/25 10:00 05/07/25 09:25 100 MG Folic Acid 1 mg DAILY PO 05/07/25 10:00 05/07/25 09:26 1 MG Multivitamins 1 tab DAILY PO 05/07/25 10:00 05/07/25 09:26 1 TAB Ondansetron HCl 4 mg Q4HP PRN IV 05/06/25 08:00 Acetaminophen 650 mg Q6HP PRN PO 05/06/25 08:00 Nitroglycerin 0.4 mg Q5MINP PRN SL 05/06/25 08:00 Morphine Sulfate 2 mg Q30M PRN IV 05/06/25 08:00 Ceftriaxone Sodium 50 ml @ 100 mls/hr DAILY@09 IV 05/07/25 09:00 05/07/25 09:26 100 MLS/HR Laboratory Results Laboratory Tests 05/06/25 07:55 Urinalysis Test 05/06/25 10:30 Urine Color Yellow (Yellow) Urine Clarity Clear (Clear) Urine pH 7.0 (5.0-9.0) Urine Specific [place] 1.029 (1.001-1.035) Urine Protein Trace (Negative) H Urine Ketones Negative (Negative) Urine Blood Negative /uL (Negative) Urine Nitrite Negative (Negative) Urine Bilirubin Negative (Negative) Urine Urobilinogen 3 mg/dL (Negative) H Urine Leukocyte Esterase Negative /uL (Negative) Urine RBC <1 /hpf (0 - 3) Urine Microscopic WBC 1 /HPF (0-3) Urine Squamous Epithelial Cells Few /hpf (<5) Urine Bacteria None seen /hpf (None Seen) Urine Mucus Few (None Seen) Urine Glucose Normal mg/dL (Normal) Assessment/Plan Assessment/Plan alcohol withdrawl-recovering/stable for transfer alcohol dependence depression- restart zoloft hypomagnesemia replace hypomagnesemia replace Plan discussed with: Patient, Other My Orders Orders - VALERIE BELLAMY MD Procedure Category Date Status Time Mrsa Screen HALI 05/07/25 Uncollected 10:52 Date of Service: May 07, 2025 Billing Provider: VALERIE BELLAMY MD Common Visit Codes: [id number] INP/OBS CARE(MOD) VALERIE BELLAMY MD May 07, 2025 11:09
[2025-05-07] MEDS ORDERED: chlordiazePOXIDE HCL 5 MG CAP PO PRN (11:15)
[2025-05-07] MEDS: SERTRALINE HCL 50 MG TAB PO ONE (12:12)
[2025-05-07] MEDS: DOCUSATE SOD 100 MG CAP PO ONE (12:13)
[2025-05-07] MEDS: NIFEdipine ER 30 MG TAB PO STA (18:09)
[2025-05-07] MEDS ORDERED: hydrALAZINE HCL 20 MG/ML VL IV PRN (20:30)
[2025-05-07] MEDS ORDERED: DOCUSATE SOD 100 MG CAP PO SCH (22:00)
[2025-05-08] MEDS ORDERED: SERTRALINE HCL 50 MG TAB PO SCH (10:00)
== END 2025-05-07 20:57 | disposition short-term general hospital (02) | DRG 897 ==
LOC: EDSEX 02:16 → ER 02:16 → EDBD 02:16 → OVERFLOW 07:58 → TELE-EAST 22:25
DX: F10.239 Alcohol dependence with withdrawal, unspecified (principal); F41.1 Generalized anxiety disorder; E83.42 Hypomagnesemia; E66.9 Obesity, unspecified; F32.A Depression, unspecified; R00.0 Tachycardia, unspecified; I10 Essential (primary) hypertension; D72.829 Elevated white blood cell count, unspecified; Z87.891 Personal history of nicotine dependence; Z83.3 Family history of diabetes mellitus; Y90.0 Blood alcohol level of less than 20 mg/100 ml
CPT/HCPCS: 36415; 71045; 80053; 80307; 80320; 81001; 83735; 84443; 84484; 85025; 87081; 87804; 93005; 96361; 96374; G0378; Q0162

== ENCOUNTER 2025-06-25 05:16 | Inpatient (IN) | payer OTHER ==
[~2025-06-25] VITALS: Ht 190.5 cm; Wt 194.0 kg
--- NOTE | 2025-06-25 05:26 | ED.PDOC ---
History of Present Illness HPI Comments 20-year-old male brought by paramedics because of possible seizure episode which happened few hours ago. Patient has been drinking all night history of alcohol abuse states that he started shaking 2 hours ago. No oral trauma on arrival. He does not take any medication for seizures. He is morbidly obese. Vitals stable on arrival. Denies any other symptoms. Time Seen by MD: 05:22 Primary Care Provider: unknown Reviewed Notes: Nurses Notes, Medications, Allergies Allergies: Coded Allergies: No Known Drug Allergy (Verified Allergy, Unknown, 02/04/25) Home Meds Active Scripts Gabapentin (Gabapentin) 300 Mg Cap, 1 CAP PO TID, #63 CAP 0 Refills Prov:GEOVANNY MELENDEZ PAC 05/05/25 Sertraline Hcl (Zoloft) 50 Mg Tab, 1 TAB PO DAILY, #21 TAB 0 Refills Prov:GEOVANNY MELENDEZ PAC 05/05/25 Diazepam (Diazepam) 10 Mg Tab, 1 TAB PO BID for 7 Days, #14 TAB Prov:REY CERON MD 04/22/25 Information Source: Patient Mode of Arrival: EMS Severity: Moderate Timing: Hours Duration: Since onset Past Medical History PAST MEDICAL HISTORY: Anxiety Surgical History: Tonsillectomy Family History Family History: Reviewed,noncontributory to illness Social History Smoker: Non-Smoker Alcohol: Heavy Drugs: Denies Drug Use Lives In: Home Constitutional: denies: chills, diaphoresis, fatigue, fever, malaise, sweats, weakness, others EENTM: denies: blurred vision, double vision, ear bleeding, ear discharge, ear drainage, ear pain, ear ringing, eye pain, eye redness, hearing loss, mouth pain, mouth swelling, nasal discharge, nose bleeding, nose congestion, nose pain, photophobia, tearing, throat pain, throat swelling, voice changes, others Respiratory: denies: cough, hemoptysis, orthopnea, SOB at rest, shortness of breath, SOB with excertion, stridor, wheezing, others Cardiovascular: denies: chest pain, dizzy spells, diaphoresis, Dyspnea on exertion, edema, irregular heart beat, left arm pain, lightheadedness, palpitations, PND, syncope, others Gastrointestinal: denies: abdomen distended, abdominal pain, blood streaked bowels, constipated, diarrhea, dysphagia, difficulty swallowing, hematemesis, melena, nausea, poor appetite, poor fluid intake, rectal bleeding, rectal pain, vomiting, others Genitourinary: denies: burning, dysuria, flank pain, frequency, hematuria, incontinence, penile discharge, penile sore, pain, testicle pain, testicle swelling, urgency, others Neurological: reports: seizure; denies: dizziness, fainting, headache, left sided numbness, left sided weakness, numbness, paresthesia, pre-existing deficit, right sided numbness, right sided weakness, speech problems, tingling, tremors, weakness, others Musculoskeletal: denies: back pain, gout, joint pain, joint swelling, muscle pain, muscle stiffness, neck pain, others Integumetry: denies: bruises, change in color, change in hair/nails, dryness, laceration, lesions, lumps, rash, wounds, others Hematologic/Lymphatic: denies: anemia, blood clots, easy bleeding, easy bruising, swollen glands, others Endocrine: denies: excessive hunger, excessive sweating, excessive thirst, excessive urination, flushing, intolerance to cold, intolerance to heat, unexplained weight gain, unexplained weight loss, others Psychiatric: denies: anxiety, bipolar disorder, depression, hopeless, panic disorder, schizophrenia, sleepless, suicidal, others Physical Exam General Appearance: Moderate Distress, Obese HEENT: Normal ENT Inspection, Pharynx Normal, TMs Normal Neck: Full Range of Motion, Non-Tender, Normal, Normal Inspection Respiratory: Chest Non-Tender, Lungs Clear, No Accessory Muscle Use, No Respiratory Distress, Normal Breath Sounds Cardiovascular: No Edema, No JVD, No Murmur, No Gallop, Normal Peripheral Pulses, Regular Rate/Rhythm Breast Exam: Deferred Gastrointestinal: No Organomegaly, Non Tender, No Pulsatile Mass, Normal Bowel Sounds, Soft Genitalia: Deferred Pelvic: Deferred Rectal: Deferred Extremities: No calf tenderness, Normal capillary refill, Normal inspection, Normal range of motion, Non-tender, No pedal edema Musculoskeletal : Apperance: Normal Neurologic: Alert, doll eye setter II-XII nml as Tested, No Motor Deficits, Normal Affect, Normal Mood, No Sensory Deficits Cerebellar Function: NOT DONE Reflexes: NOT DONE Skin: Dry, Normal Color, Warm Peripheral Pulses: 3+ Radial (R), 3+ Radial (L) Lymphatic: No Adenopathy Was a procedure done? Was a procedure done?: No EKG EKG : Pulse Rate (adult): 142 Cardiac Rhythm: ST Differential Dx Considerations may include: Alcohol abuse Electrolyte imbalance X-Ray, Labs, Meds, VS Vital Signs Date Time Temp Pulse Resp B/P (MAP) Pulse Ox O2 Delivery O2 Flow Rate FiO2 06/25/25 11:32 97.9 120 18 142/104 (117) 96 97.9 06/25/25 08:41 98.7 129 16 144/90 (108) 91 98.7 06/25/25 06:05 142 06/25/25 05:53 142 06/25/25 05:16 97.0 140 16 155/83 94 97.0 Lab Test 06/25/25 12:00 06/25/25 06:08 Range/Units Urine Opiates Screen Neg NEGATIVE Urine Fentanyl Screen Neg NEGATIVE Urine Barbiturates Screen Neg NEGATIVE Urine Phencyclidine Screen Neg NEGATIVE Urine Amphetamines Screen Neg NEGATIVE Urine Benzodiazepines Screen Pos NEGATIVE Urine Cocaine Screen Neg NEGATIVE Urine Cannabinoids Screen Neg NEGATIVE Plasma/Serum Blood Alcohol 352.8 H <10 mg/dL Current Medications Medications (Trade) Dose Ordered Sig/Nasra Route Start Time Stop Time Status Last Admin Sodium Chloride 1,000 ml @ 1,000 mls/hr Q1H ONCE IVB 06/25/25 05:30 06/25/25 06:29 DC 06/25/25 05:30 Thiamine HCl 100 mg ONCE ONCE IV 06/25/25 05:30 06/25/25 05:31 DC 06/25/25 05:30 Lorazepam (Ativan Inj) 1 mg ONCE ONCE IV 06/25/25 06:15 06/25/25 06:16 DC 06/25/25 06:15 Sodium Chloride 1,000 ml @ 1,000 mls/hr Q1H ONCE IV 06/25/25 06:45 06/25/25 07:44 DC 06/25/25 06:59 Sodium Chloride 1,000 ml @ 1,000 mls/hr Q1H ONCE IV 06/25/25 11:15 06/25/25 12:14 DC 06/25/25 11:28 Lorazepam (Ativan Inj) 1 mg ONCE ONCE IV 06/25/25 11:15 06/25/25 11:16 DC 06/25/25 11:28 Patient alert. Possible seizure. Vitals stable. Answering questions. He is obese. Establish intravenous access. Was given fluids. Was given thiamine. Counseled patient on effects of drinking for 15 minutes. Continue monitoring. Has been treated in the ER for many hours. Has not had a seizure. No withdrawal. Explained to the patient to follow up with his primary care physician. Was told to come back if there is any problem. Time of 1ST Reevaluation: 05:24 Reevaluation 1ST: Unchanged Patient Education/Counseling: Diagnosis, Treatment, Prognosis, Need For Follow Up Family Education/Counseling: No Family Present SEPSIS Sepsis Screen Physician Orders Electrocardigram (06/25/25 07:27) Vital Signs Date Time Temp Pulse Resp B/P (MAP) Pulse Ox O2 Delivery O2 Flow Rate FiO2 06/25/25 11:32 97.9 120 18 142/104 (117) 96 97.9 06/25/25 08:41 98.7 129 16 144/90 (108) 91 98.7 06/25/25 06:05 142 06/25/25 05:53 142 06/25/25 05:16 97.0 140 16 155/83 94 97.0 Medications Medications Dose Ordered Sig/Nasra Route Start Time Stop Time Status Last Admin Dose Admin Lorazepam 1 mg ONCE ONCE IV 06/25/25 06:15 06/25/25 06:16 DC 06/25/25 06:15 Lorazepam 1 mg ONCE ONCE IV 06/25/25 11:15 06/25/25 11:16 DC 06/25/25 11:28 Sodium Chloride 1,000 ml @ 1,000 mls/hr Q1H ONCE IV 06/25/25 06:45 06/25/25 07:44 DC 06/25/25 06:59 Sodium Chloride 1,000 ml @ 1,000 mls/hr Q1H ONCE IV 06/25/25 11:15 06/25/25 12:14 DC 06/25/25 11:28 Sodium Chloride 1,000 ml @ 1,000 mls/hr Q1H ONCE IVB 06/25/25 05:30 06/25/25 06:29 DC 06/25/25 05:30 Thiamine HCl 100 mg ONCE ONCE IV 06/25/25 05:30 06/25/25 05:31 DC 06/25/25 05:30 Departure 1 Departure Time of Disposition: 05:25 Impression: Primary Impression: Alcohol abuse Disposition: 01 HOME / SELF CARE / HOMELESS Condition: Good Discharged With: Self Critical Care Note Critical Care Time?: No Stability Stability form required: No Heart Score Heart Score: Heart Score Response (Comments) Value History N/A 0 EKG N/A 0 Age N/A 0 Risk Factors N/A 0 Troponin N/A 0 Total 0 STEPHANIE UPTON MD Jun 25, 2025 05:26
[2025-06-25] MEDS: THIAMINE 100mg/ml INJ (200mg/2ml VIAL) IV ONE (05:30)
[2025-06-25] MEDS: SODIUM CHLORIDE 0.9% 1,000 ML IVB ONE (05:30)
[2025-06-25] MEDS: LORazepam 2MG/ML-1ML VIAL IV ONE ×3 (06:15→23:34)
[2025-06-25] MEDS: SODIUM CHLORIDE 0.9% 1,000 ML IV ONE ×2 (06:59→11:28)
[2025-06-25 15:04] LABS: Amphetamine Screen, Urine Neg (NEGATIVE); Barbiturate Scree,Urine Neg (NEGATIVE); Benzodiazephine Screen, Urine Pos (NEGATIVE); Cannabinoid Screen, Urine Neg (NEGATIVE); Cocaine Screen, Urine Neg (NEGATIVE); Opiate Scree,Urine Neg (NEGATIVE); Phencyclidine Screen, Urine Neg (NEGATIVE)
[2025-06-25 23:58] LABS: Albumin 4.2 g/dL (3.2-4.8); Anion Gap 13 (5-15); Carbon Dioxide 25 mmol/L (20-31); Chloride 101 mmol/L (98-107); Sodium 139 mmol/L (136-145); Total Protein 7.8 g/dL (5.7-8.2)
[2025-06-25 23:59] LABS: Alanine Aminotransferase 52 U/L (7-40); Alkaline Phosphatase 125 U/L (46-116); BUN/Creatinine Ratio 8.3 (10.0-20.0); Bilirubin, Total 3.5 mg/dL (0.2-1.0); Blood Urea Nitrogen < 5 mg/dL (9-23); Calcium 8.5 mg/dL (8.7-10.4); Glucose 110 mg/dL (74-106); Hematocrit 46.6 % (41.0-53.0); Hemoglobin 16.2 g/dL (13.5-17.5); Mean Corpuscular Hemoglobin 33.2 pg (28.0-32.0); Mean Corpuscular Volume 95.3 fL (80.0-100.0); Nucleated Red Blood Cells % 0.1 %; Potassium 3.2 mmol/L (3.5-5.1)
[2025-06-26] MEDS: MVI in SODIUM CHLORIDE 0.9% 1,000 ML IVB ONE (03:15)
[2025-06-26] MEDS: LORazepam 2MG/ML-1ML VIAL IV SCH (03:50)
--- NOTE | 2025-06-26 03:50 | DVHHPRES ---
History of Present Illness Resident Creating Document: MAYA MI RESIDENT History of Present Illness This is a 20-year-old male with past medical history of hypertension. Patient does not recall which medication that he takes for blood pressure. Patient is also a heavy drinker since early teenager. Patient states that drinks 9 "buzz ballz cocktails" a day. Patient states that last drink was two days ago. Patient reports that presented to the ED with chief complaint of severe tremors likely alcohol induced. Upon admission, labs showed elevated alcohol levels, T 374 and ALT 52. My examination CIWA score was 20 point, patient was started on CIWA protocol. IV banana bag, thiamine, folic acid, chlordiazepoxide taper, Ativan p.r.n. patient will be admitted for further assessment and management. Past medical history: Hypertension Home medications: Patient states that takes something for blood pressure but does not remember which medication Surgical history: Denies Social history: Heavy drinker since early teenager. Denies smoking or other drugs. Cardiovascular: HTN Past Surgical History: None Family History: None Smoke: No ALCOHOL: heavy Drugs: None Lives: with Family Domestic Violence: Neg Review of Systems Constitutional: No: Fever, Chills, Sweats, Weakness, Malaise, Other Eyes: No: Pain, Vision change, Conjunctivae inflammation, Eyelid inflammation, Other, Redness ENT: Other (Or auditory disturbances); No: Ear pain, Ear discharge, Nose pain, Nose discharge, Nose congestion, Mouth pain, Mouth swelling, Throat pain, Throat swelling Respiratory: No: Cough, Dry, Shortness of breath, SOB with excertion, Wheezing, Hemoptysis, Pleuritic Pain, Sputum, Wheezing, Other Cardiovascular: No: Chest Pain, Palpitations, Orthopnea, Paroxysmal Noc. Dyspnea, Edema, Lt Headedness, Other Gastrointestinal: No: Nausea, Vomiting, Abdominal Pain, Diarrhea, Constipation, Melena, Hematochezia, Other Genitourinary: No Dysuria, No Frequency, No Incontinence, No Hematuria, No Retention, No Other Musculoskeletal: other (Tactile disturbances); No: neck pain, shoulder pain, arm pain, back pain, hand pain, leg pain, foot pain Skin: No: Rash, Lesions, Jaundice, Bruising, Other Neurological: Other (Generalized tremors); No: Weakness, Numbness, Incoordination, Change in speech, Confusion, Seizures Allergies: Coded Allergies: No Known Drug Allergy (Verified Allergy, Unknown, 02/04/25) Medications Current Medications Medications Dose Ordered Sig/Nasra Route Start Time Stop Time Status Last Admin Dose Admin Acetaminophen/ Hydrocodone Bitart 1 tab Q4HP PRN PO 06/26/25 03:00 UNV Ondansetron HCl 4 mg Q4HP PRN IV 06/26/25 03:00 UNV Thiamine HCl 100 mg DAILY PO 06/26/25 10:00 UNV Folic Acid 1 mg DAILY PO 06/26/25 10:00 UNV Lorazepam 1 mg Q6H IV 06/26/25 03:15 UNV Exam Vital Signs Vital Signs Date Time Temp Pulse Resp B/P (MAP) Pulse Ox O2 Delivery O2 Flow Rate FiO2 06/25/25 23:57 98.6 124 20 164/102 (122) 96 98.6 General Appearance: Alert, Oriented X3, Cooperative, moderate distress HEENT: Atraumatic, PERRLA, EOMI Respiratory: Clear to auscultation, Normal air movement Cardiovascular: Regular rate, Normal S1, Normal S2, No murmurs Abdominal: Normal bowel sounds, Soft, No hepatospenomegaly, No masses, Other (There is slight tenderness in the right upper quadrant) Extremities: No clubbing, No cyanosis, No edema, Normal pulses, No tenderness/swelling Skin: No rashes, No breakdown, No significant lesion Neuro: Normal gait, Normal speech, Strength at 5/5 X4 ext, Normal tone, Sensation intact, Cranial nerves 3-12 NL, Reflexes 2+ Psych/Mental Status: Mental status NL, Mood NL Labs/Xrays Labs Test 06/25/25 23:09 06/25/25 20:19 06/25/25 12:00 Range/Units White Blood Count 9.3 4.4-10.8 10^3/uL Red Blood Count 4.89 4.5-5.90 10^6/uL Hemoglobin 16.2 13.5-17.5 g/dL Hematocrit 46.6 41.0-53.0 % Mean Corpuscular Volume 95.3 80.0-100.0 fL Mean Corpuscular Hemoglobin 33.2 H 28.0-32.0 pg Mean Corpuscular Hemoglobin Concent 34.8 32.0-36.0 g/dL Red Cell Distribution Width 18.0 H 11.8-14.3 % Platelet Count 201 140-450 10^3/uL Mean Platelet Volume 8.9 6.9-10.8 fL Neutrophils (%) (Auto) 81.6 H 37.0-80.0 % Lymphocytes (%) (Auto) 10.2 10.0-50.0 % Monocytes (%) (Auto) 7.8 0.0-12.0 % Eosinophils (%) (Auto) 0.0 0.0-7.0 % Basophils (%) (Auto) 0.4 0.0-2.0 % Neutrophils # (Auto) 7.6 1.6-8.6 10 ^3/uL Lymphocytes # (Auto) 1.0 0.4-5.4 10 ^3/uL Monocytes # (Auto) 0.7 0-1.3 10 ^3/uL Eosinophils # (Auto) 0 0-0.8 10 ^3/uL Basophils # (Auto) 0 0-0.2 10 ^3/uL Nucleated Red Blood Cells 0.1 % Sodium Level 139 136-145 mmol/L Potassium Level 3.2 L 3.5-5.1 mmol/L Chloride Level 101 98-107 mmol/L Carbon Dioxide Level 25 20-31 mmol/L Anion Gap 13 5-15 Blood Urea Nitrogen < 5 L 9-23 mg/dL Creatinine 0.60 L 0.700-1.30 mg/dL Glomerular Filtration Rate Calc 140 >90 mL/min BUN/Creatinine Ratio 8.3 L 10.0-20.0 Serum Glucose 110 H 74-106 mg/dL Calcium Level 8.5 L 8.7-10.4 mg/dL Total Bilirubin 3.5 H 0.2-1.0 mg/dL Aspartate Amino Transferase (AST) 374 H 13-40 U/L Alanine Aminotransferase (ALT) 52 H 7-40 U/L Alkaline Phosphatase 125 H 46-116 U/L Total Protein 7.8 5.7-8.2 g/dL Albumin 4.2 3.2-4.8 g/dL Plasma/Serum Blood Alcohol < 3.0 <10 mg/dL POC Glucose 140 H 70-106 mg/dl Urine Opiates Screen Neg NEGATIVE Urine Fentanyl Screen Neg NEGATIVE Urine Barbiturates Screen Neg NEGATIVE Urine Phencyclidine Screen Neg NEGATIVE Urine Amphetamines Screen Neg NEGATIVE Urine Benzodiazepines Screen Pos NEGATIVE Urine Cocaine Screen Neg NEGATIVE Urine Cannabinoids Screen Neg NEGATIVE SEPSIS Sepsis Screen Date sepsis recognized/suspect: Jun 25, 2025 Time Sepsis recognized/suspect: 1802 Recent Procedure: No On Antibiotic Therapy: No Respiratory Rate >20: No Heart Rate >90: Yes Temp<36 C (96.8 F) or >38.3 C: No SBP <90 or MAP <65 mmHG: No New Acute Mental Status Change: No Is the patient on CPAP, BIPAP,: No Physician Orders Admit (06/26/25 03:00) Code Status (06/26/25 03:00) Vital Signs .PER UNIT PROTOCOL (06/26/25 03:00) Review Orders With Adm.Md (06/26/25 03:00) Encourage Activity As Tolerate (06/26/25 03:00) Npo (Nothing By Mouth) Diet (06/26/25 Breakfast) Notify Md Of Changes From Base (06/26/25 03:00) Advance Directive (06/26/25 03:00) Urinalysis (06/26/25 03:00) Complete Blood Count (06/26/25 04:00) Lipid Panel (06/26/25 03:00) Patient Condition (06/26/25 03:00) Allergies (06/26/25 03:00) Hydrocodone-Acet 5/325mg Tab ([place] /32 (06/26/25 03:00) Ondansetron Hcl (Zofran) (06/26/25 03:00) Drug Screen (06/26/25 03:00) Hemoglobin A1c (06/26/25 03:00) Thiamine Tab (06/26/25 10:00) Folic Acid 1mg Po Daily (06/26/25 10:00) Ativan 1mg Iv Q6hr Atc (06/26/25 03:15) Etoh Withdrawal Assessment (06/26/25 03:05) Etoh Withdrawal Assessment NOW (06/26/25 03:05) Mvi/ Ns 1 Liter Banana Bag (06/26/25 03:15) Librium 50mg Po Q8hr Day 1 (06/26/25 03:15) Librium 50mg Po Q12hr Day 2 (06/27/25 10:00) Librium 25mg Po Q12hr X Day 3 (06/28/25 10:00) Librium 25mg Po Qam Day 4 (06/29/25 07:00) Vital Signs Date Time Temp Pulse Resp B/P (MAP) Pulse Ox O2 Delivery O2 Flow Rate FiO2 06/25/25 23:57 98.6 124 20 164/102 (122) 96 98.6 06/25/25 22:15 164/105 06/25/25 20:29 98.9 126 20 164/105 (124) 96 98.9 Laboratory Tests Test 06/25/25 23:09 White Blood Count 9.3 10^3/uL (4.4-10.8) Medications Medications Dose Ordered Sig/Nasra Route Start Time Stop Time Status Last Admin Dose Admin Amlodipine Besylate 10 mg ONCE ONCE PO 06/25/25 17:00 06/25/25 17:01 DC 06/25/25 17:45 10 MG Chlordiazepoxide HCl 50 mg ONCE ONCE PO 06/25/25 18:15 06/25/25 18:25 DC 06/25/25 19:13 50 MG Clonidine HCl 0.1 mg ONCE ONCE PO 06/25/25 21:30 06/25/25 21:31 DC 06/25/25 22:15 0.1 MG Lorazepam 1 mg ONCE ONCE IV 06/25/25 22:45 06/25/25 22:46 DC 06/25/25 23:34 1 MG Assessment/Plan Assessment/Plan Assessment/plan Acute alcohol withdrawal symptoms Possible acute alcoholic hepatitis R/O biliary obstruction -CIWA score of 20 point -start IV banana bag -start thiamine, folic acid and multivitamins -chlordiazepoxide protocol taper -Ativan 1 mg q.6 PRN -order acute hepatitis panel -AST 374, ALT 52 -total bilirubin 3.5 -monitor patient closely History of hypertension -monitor blood pressure -patient was taking bisoprolol 5 mg, blood pressure still elevated above 160/100mmhg -start carvedilol 3.125 b.i.d. Goals of care discussed with the patient at bedside, FULL CODE Plan discussed with Dr. Moreno Plan discussed with: Patient My Orders Orders - MAYA MI Procedure Category Date Status Time Admit ADMIT 06/26/25 Transmitted 03:00 Code Status CODE 06/26/25 Transmitted 03:00 Vital Signs [facility]STIAN 06/26/25 In Process 03:00 Review Orders With [facility] 06/26/25 In Process Adm. 03:00 Encourage Activity As [facility]RISTIAN 06/26/25 In Process Tolerate 03:00 Npo (Nothing By DIET 06/26/25 Transmitted Mouth) Diet Breakfast Notify Of Changes [facility] 06/26/25 In Process From Base 03:00 Advance Directive [facility] 06/26/25 In Process 03:00 Urinalysis LAB 06/26/25 Logged 03:00 Complete Blood Count LAB 06/26/25 Logged 04:00 Lipid Panel LAB 06/26/25 Logged 03:00 Patient Condition ORDERS 06/26/25 Transmitted 03:00 Allergies [facility]IAN 06/26/25 In Process 03:00 Hydrocodone-Acet PHA 06/26/25 Logged 5/325mg Tab ([place] 03:00 Ondansetron Hcl PHA 06/26/25 Logged (Zofran) 03:00 Drug Screen LAB 06/26/25 Logged 03:00 Hemoglobin A1c LAB 06/26/25 Logged 03:00 Thiamine Tab PHA 06/26/25 Logged 10:00 Folic Acid 1mg Po PHA 06/26/25 Transmitted Daily 10:00 Ativan 1mg Iv Q6hr Atc PHA 06/26/25 Transmitted 03:15 Etoh Withdrawal [facility]STIAN 06/26/25 Transmitted Assessment 03:05 Etoh Withdrawal [facility] 06/26/25 Transmitted Assessment 03:05 Mvi/ Ns 1 Liter PHA 06/26/25 Transmitted Banana Bag 03:15 Librium 50mg Po Q8hr PHA 06/26/25 Transmitted Day 1 03:15 Librium 50mg Po Q12hr PHA 06/27/25 Transmitted Day 2 10:00 Librium 25mg Po Q12hr PHA 06/28/25 Transmitted X Day 3 10:00 Librium 25mg Po Qam PHA 06/29/25 Transmitted Day 4 07:00 Date of Service: Jun 26, 2025 Billing Provider: MANNY MORENO MD Common Visit Codes: [id number] INP/OBS CARE (HIGH) Secondary Visit Codes: [id number] CARE PLAN 30 MINUTES MAYA MI RESIDENT Jun 26, 2025 03:50
[2025-06-26] MEDS: POTASSIUM CHL 20 Meq TABLET PO ONE (03:56)
[2025-06-26] MEDS: CARVEDILOL 3.125 MG TAB PO SCH (04:03)
[2025-06-26] MEDS: ONDANSETRON HCL 4 MG/2 ML VIAL IV PRN (04:11)
[2025-06-26 06:06] LABS: Hematocrit 44.1 % (41.0-53.0); Hemoglobin 15.5 g/dL (13.5-17.5); Mean Corpuscular Hemoglobin 33.7 pg (28.0-32.0); Mean Corpuscular Volume 95.8 fL (80.0-100.0); Nucleated Red Blood Cells % 0.1 %
[2025-06-26 06:23] LABS: Cholesterol 174 mg/dL (< 200)
[2025-06-26 06:33] LABS: HDL Cholesterol 30 mg/dL (40-59); Triglycerides 179 mg/dL (< 150)
--- NOTE | 2025-06-26 07:57 | ECG ---
[facility] Test Date: 2025-06-25 Test Time: 05:53:13 Pat Name: JOHANA BREAUX Department: ED Room: [address] [place] [address] A Gender: M [employer]: CARMENCITA : 2005 Requested By: STEPHANIE UPTON Order Number: [id number] Reading MD: Eduin Madrid Measurements Intervals [place] Rate: 142 P: 43 MN: 117 QRS: 247 QRSD: 96 T: 17 QT: 298 QTc: 458 Interpretive Statements Sinus tachycardia Left anterior fascicular block Baseline wander in lead(s) V3 Electronically Signed On 06-26-2025 18:21:57 PDT by Eduin Madrid Please click the below link to view image of tracing.
[2025-06-26 09:30] VITALS: PULSE 101; RESP 16; O2SAT 95
[2025-06-26] MEDS: MVI in SODIUM CHLORIDE 0.9% 1,010 ML IV ONE (09:35)
[2025-06-26] MEDS: THIAMINE 100mg/ml INJ (200mg/2ml VIAL) IV ONE (09:41)
[2025-06-26] MEDS: THIAMINE HCL 100 MG TAB PO SCH (09:44)
[2025-06-26] MEDS: MAGNESIUM SULFATE 1GM/100ML 100 ML IV SCH (10:02)
[2025-06-26] MEDS: SERTRALINE HCL 50 MG TAB PO SCH (10:07)
[2025-06-26] MEDS: FOLIC ACID 1 MG TAB PO SCH (10:08)
--- NOTE | 2025-06-26 12:57 | DVHPN2 ---
Progress Note Date Seen: Jun 26, 2025 Medical Necessity Reason Pt with a Central, PICC or Fol: No Subjective Patient reports: No new complaints Review of Systems: HEENT:Normal, CVS:Normal, RESPIRATORY:Normal, GI:Normal, :Normal, MSK:Normal, NEURO:Normal Objective vital signs Vital Sign Date Time Temp Pulse Resp B/P (MAP) Pulse Ox O2 Delivery O2 Flow Rate FiO2 06/26/25 11:18 109 20 158/98 (118) 96 06/26/25 09:30 Room Air* 0 21 06/26/25 09:30 98.3 98.3 Total Intake and Output 06/25/25 06/25/25 06/26/25 15:00 23:00 07:00 Intake Total 3000 ml Balance 3000 ml medications Current Medications Medications Dose Ordered Sig/Nasra Route Start Time Stop Time Status Last Admin Dose Admin Acetaminophen/ Hydrocodone Bitart 1 tab Q4HP PRN PO 06/26/25 03:00 Ondansetron HCl 4 mg Q4HP PRN IV 06/26/25 03:00 06/26/25 09:41 4 MG Thiamine HCl 100 mg DAILY PO 06/26/25 10:00 Folic Acid 1 mg DAILY PO 06/26/25 10:00 06/26/25 10:08 1 MG Lorazepam 1 mg Q6H IV 06/26/25 03:15 06/26/25 09:35 1 MG Chlordiazepoxide HCl 50 mg Q8H PO 06/26/25 03:15 06/26/25 19:16 06/26/25 11:23 50 MG Chlordiazepoxide HCl 50 mg Q12HR PO 06/27/25 10:00 06/27/25 22:01 Chlordiazepoxide HCl 25 mg Q12HR PO 06/28/25 10:00 06/28/25 22:01 Chlordiazepoxide HCl 25 mg QAM PO 06/29/25 07:00 06/29/25 07:01 Carvedilol 3.125 mg BID PO 06/26/25 03:45 06/26/25 10:07 3.125 MG Sertraline HCl 50 mg DAILY PO 06/26/25 10:00 06/26/25 10:07 50 MG Examination: GENERAL:Normal, HEENT:Normal, NECK:Normal, LUNGS:Normal, CVS:Normal, ABDOMEN:Normal, MSK:Normal, MSK:Abnormal (tremors+), SKIN:Normal, NEURO:Normal, :Normal laboratory and microbiology Laboratory Tests 06/26/25 05:54 06/25/25 23:09 Test 06/25/25 23:09 Range/Units Serum Glucose 110 H 74-106 mg/dL Problem List/Assessment/Plan Problem List/Assessment/Plan #1 hypertensive urgency: adjust meds #2 alcohol abuse/withdrawal: ativan, banana bag #3 morbid obesity #4 liver failure #5 tachycardia unstable for transfer Plan discussed with: Patient My Orders My Orders Orders - MAYNOR LOPEZ MD Procedure Category Date Status Time Urinalysis LAB 06/26/25 Uncollected 12:51 Banana Bag Ns PHA 06/26/25 Verified 18:00 Clonidine Hcl Tablet PHA 06/26/25 Verified (Catapres Tablet) 13:00 Clonidine Hcl Tablet PHA 06/26/25 Verified (Catapres Tablet) 22:00 Comprehensive LAB 06/26/25 Verified Metabolic Panel 12:51 Magnesium LAB 06/26/25 Verified 12:51 Phosphorus LAB 06/26/25 Verified 12:51 Complete Blood Count LAB 06/27/25 Verified 06:00 Comprehensive LAB 06/27/25 Verified Metabolic Panel 06:00 Date of Service: Jun 26, 2025 Billing Provider: MAYNOR LOPEZ MD Common Visit Codes: [id number] INP/OBS CARE(HIGH) MAYNOR LOPEZ MD Jun 26, 2025 12:57
[2025-06-26] MEDS: HYDROcodone-ACET 5/325MG TAB PO PRN (15:25)
[2025-06-26 16:17] LABS: Chloride 102 mmol/L (98-107); Potassium 3.3 mmol/L (3.5-5.1); Sodium 138 mmol/L (136-145)
[2025-06-26 16:18] LABS: Anion Gap 11 (5-15)
[2025-06-26 16:19] LABS: Calcium 7.8 mg/dL (8.7-10.4); Carbon Dioxide 25 mmol/L (20-31)
[2025-06-26 16:23] LABS: BUN/Creatinine Ratio 11.1 (10.0-20.0); Glucose 95 mg/dL (74-106)
[2025-06-26 16:24] LABS: Alkaline Phosphatase 102 U/L (46-116); Blood Urea Nitrogen 6 mg/dL (9-23); Magnesium 1.5 mg/dL (1.6-2.6); Total Protein 6.7 g/dL (5.7-8.2)
[2025-06-26 16:27] LABS: Alanine Aminotransferase 40 U/L (7-40); Albumin 3.6 g/dL (3.2-4.8); Bilirubin, Total 5.6 mg/dL (0.2-1.0)
[2025-06-26] MEDS: FOLIC ACID 1 MG, MAGNESIUM SULF SDV 50% 8 MEQ, MULTIPLE VITAMIN 10 ML, THIAMINE INJ 100... INJ SCH (18:17)
[2025-06-27 05:03] VITALS: BP 125/81; PULSE 96; RESP 17; TEMP 98.6; O2SAT 95
[2025-06-27 05:35] LABS: Hematocrit 41.7 % (41.0-53.0); Hemoglobin 14.3 g/dL (13.5-17.5); Mean Corpuscular Hemoglobin 33.5 pg (28.0-32.0); Mean Corpuscular Volume 97.4 fL (80.0-100.0); Nucleated Red Blood Cells % 0.1 %
[2025-06-27 06:00] LABS: Alanine Aminotransferase 35 U/L (7-40); Albumin 3.5 g/dL (3.2-4.8); Alkaline Phosphatase 97 U/L (46-116); Anion Gap 13 (5-15); BUN/Creatinine Ratio 16.0 (10.0-20.0); Carbon Dioxide 23 mmol/L (20-31); Chloride 102 mmol/L (98-107); Sodium 138 mmol/L (136-145); Total Protein 6.5 g/dL (5.7-8.2)
[2025-06-27 06:02] LABS: Bilirubin, Total 4.9 mg/dL (0.2-1.0); Blood Urea Nitrogen 8 mg/dL (9-23); Calcium 7.9 mg/dL (8.7-10.4); Glucose 74 mg/dL (74-106); Potassium 3.3 mmol/L (3.5-5.1)
[2025-06-27 09:00] VITALS: BP 124/86; PULSE 105; RESP 20; TEMP 98.4; O2SAT 95
[2025-06-27 13:00] VITALS: BP 135/93; PULSE 94; RESP 20; TEMP 98.3; O2SAT 97
--- NOTE | 2025-06-27 13:49 | DVHDS2 ---
Discharge Summary Date of Admission Jun 26, 2025 at 03:00 Date of Discharge: Jun 27, 2025 Labs/Diagnostic Data: Laboratory Results Test 06/27/25 04:35 06/26/25 15:37 06/26/25 05:54 06/25/25 23:09 White Blood Count 6.7 10^3/uL (4.4-10.8) Red Blood Count 4.28 10^6/uL (4.5-5.90) Hemoglobin 14.3 g/dL (13.5-17.5) Hematocrit 41.7 % (41.0-53.0) Mean Corpuscular Volume 97.4 fL (80.0-100.0) Mean Corpuscular Hemoglobin 33.5 pg (28.0-32.0) Mean Corpuscular Hemoglobin Concent 34.3 g/dL (32.0-36.0) Red Cell Distribution Width 17.7 % (11.8-14.3) Platelet Count 141 10^3/uL (140-450) Mean Platelet Volume 9.2 fL (6.9-10.8) Neutrophils (%) (Auto) 74.9 % (37.0-80.0) Lymphocytes (%) (Auto) 15.6 % (10.0-50.0) Monocytes (%) (Auto) 8.1 % (0.0-12.0) Eosinophils (%) (Auto) 0.8 % (0.0-7.0) Basophils (%) (Auto) 0.6 % (0.0-2.0) Neutrophils # (Auto) 5.0 10 ^3/uL (1.6-8.6) Lymphocytes # (Auto) 1.0 10 ^3/uL (0.4-5.4) Monocytes # (Auto) 0.5 10 ^3/uL (0-1.3) Eosinophils # (Auto) 0.1 10 ^3/uL (0-0.8) Basophils # (Auto) 0 10 ^3/uL (0-0.2) Nucleated Red Blood Cells 0.1 % Sodium Level 138 mmol/L (136-145) Potassium Level 3.3 mmol/L (3.5-5.1) Chloride Level 102 mmol/L (98-107) Carbon Dioxide Level 23 mmol/L (20-31) Anion Gap 13 (5-15) Blood Urea Nitrogen 8 mg/dL (9-23) Creatinine 0.50 mg/dL (0.700-1.30) Glomerular Filtration Rate Calc 148 mL/min (>90) BUN/Creatinine Ratio 16.0 (10.0-20.0) Serum Glucose 74 mg/dL (74-106) Calcium Level 7.9 mg/dL (8.7-10.4) Total Bilirubin 4.9 mg/dL (0.2-1.0) Aspartate Amino Transferase (AST) 268 U/L (13-40) Alanine Aminotransferase (ALT) 35 U/L (7-40) Alkaline Phosphatase 97 U/L (46-116) Total Protein 6.5 g/dL (5.7-8.2) Albumin 3.5 g/dL (3.2-4.8) Phosphorus Level 3.7 mg/dL (2.4-5.1) Magnesium Level 1.5 mg/dL (1.6-2.6) Hemoglobin A1c 5.7 % A1C (<5.7) Triglycerides Level 179 mg/dL (< 150) Cholesterol Level 174 mg/dL (< 200) LDL Cholesterol 131 mg/dL (< 100) HDL Cholesterol 30 mg/dL (40-59) Plasma/Serum Blood Alcohol < 3.0 mg/dL (<10) Test 06/25/25 20:19 06/25/25 12:00 POC Glucose 140 mg/dl (70-106) Urine Opiates Screen Neg (NEGATIVE) Urine Fentanyl Screen Neg (NEGATIVE) Urine Barbiturates Screen Neg (NEGATIVE) Urine Phencyclidine Screen Neg (NEGATIVE) Urine Amphetamines Screen Neg (NEGATIVE) Urine Benzodiazepines Screen Pos (NEGATIVE) Urine Cocaine Screen Neg (NEGATIVE) Urine Cannabinoids Screen Neg (NEGATIVE) Other Laboratory Tests 06/27/25 04:35 Brief Hx & Hospital Course: see dictated note Condition at Discharge: Fair Final Diagnosis/Problems List alcohol withdrawal, liver failure Discharge Disposition: Acute Care Facility Discharge Instruct/Medications Diet: Regular Activity: No Restrictions, As Tolerated Follow Up/Referral: fu with janette Medications: per jan Scheduled Diazepam (Diazepam), 1 TAB PO BID Gabapentin (Gabapentin), 1 CAP PO TID Sertraline Hcl (Zoloft), 1 TAB PO DAILY Discharge Statement: "Patient was advised to return to the ER or call 911 if any headaches, dizziness, shortness of breath, chest pain, abdominal pain, bleeding, fevers, or worsening of medical condition. Patient was counseled about treatment plan, medications, possible side effects, patientverbalized understanding. All questions were answered to the best of my ability. This discharge took greater then 30 minutes in planning, reviewing documentation, counseling the patient, and discussing with other team members." ASSESSMENT ASSESSMENT Assessment alcohol withdrawal, liver failure Date of Service: Jun 27, 2025 Billing Provider: MAYNOR LOPEZ MD Common Visit Codes: [id number]/[id number] DISCH DAY >30min MAYNOR LOPEZ MD Jun 27, 2025 13:49
--- NOTE | 2025-06-27 14:00 | DVHDS ---
DATE OF DISCHARGE: 06/27/2025 TRANSFER SUMMARY HISTORY OF PRESENT ILLNESS: The patient is a 20-year-old gentleman who was admitted with history of heavy drinking and shakiness and tremors. The patient has a history of hypertension and alcohol abuse. HOSPITAL COURSE: The patient's tox screen was positive for alcohol. His liver tests were abnormal including a bilirubin of 3.5, elevated AST, ALT, and alkaline phosphatase. The patient had recent chest x-ray that showed no acute abnormality. The patient continues to be in alcohol withdrawal at this time. He was hypokalemic and that has been treated. The patient will now be transferred to [place] for further management. The patient's blood pressure was elevated up to 165/117. FINAL DIAGNOSES: Therefore: * Hypertensive urgency. * Alcohol abuse with alcohol withdrawal. * Morbid obesity. * Liver failure, questionably acute. * Tachycardia. Time spent in discharge planning and review of plan with the patient and nursing and paperwork was 39 minutes. MD SENA Moreau/EKT TID: [id number] RECEIPT: [id number]
[2025-06-27 16:54] VITALS: BP 127/85; PULSE 84; RESP 18; TEMP 98; O2SAT 95
[2025-06-27] MEDS: FOLIC ACID 1 MG TAB PO ONE (17:22)
[2025-06-27] MEDS: MULTIPLE VITAMIN TAB PO ONE (17:22)
[2025-06-27] MEDS: POTASSIUM CHL 20 Meq TABLET PO ONE (17:22)
[2025-06-27] MEDS: MAGNESIUM OXIDE 400 MG TAB PO ONE (17:22)
[2025-06-27] MEDS: THIAMINE HCL 100 MG TAB PO ONE (17:23)
[2025-06-27 20:37] VITALS: BP 128/82; PULSE 89; RESP 20; TEMP 98.6; O2SAT 97
[2025-06-28] MEDS ORDERED: FOLIC ACID 1 MG TAB PO SCH (10:00)
[2025-06-28] MEDS ORDERED: MAGNESIUM OXIDE 400 MG TAB PO SCH (10:00)
[2025-06-28] MEDS ORDERED: THIAMINE HCL 100 MG TAB PO SCH (10:00)
[2025-06-28] MEDS ORDERED: MULTIPLE VITAMIN TAB PO SCH (10:00)
[2025-06-28 14:28] LABS: Hepatitis B Surface Antigen Negative (Negative); Hepatitis C Antibody Negative (Negative)
== END 2025-06-27 22:00 | disposition short-term general hospital (02) | DRG 305 ==
LOC: ER 05:16 → EDBD 05:16 → OVERFLOW 06-26 03:00 → WEST WING 06-27 04:49
PROVIDERS: ADMIT Internal Medicine; ATTEND Internal Medicine
DX: I16.0 Hypertensive urgency (principal); F10.139 Alcohol abuse with withdrawal, unspecified; Z68.43 Body mass index [BMI] 50.0-59.9, adult; K72.90 Hepatic failure, unspecified without coma; E66.01 Morbid (severe) obesity due to excess calories; Y90.9 Presence of alcohol in blood, level not specified; I10 Essential (primary) hypertension; F41.9 Anxiety disorder, unspecified
CPT/HCPCS: 36415; 80053; 80061; 80307; 80320; 82962; 83036; 83735; 84100; 85025; 86803; 87340; 93005; G0378; J2405

== ENCOUNTER 2025-07-27 21:37 | Emergency (ER) | payer OTHER ==
[~2025-07-27] VITALS: Ht 190.5 cm; Wt 182.0 kg
[2025-07-27 21:37] VITALS: BP 137/92; RESP 20; TEMP 97.9; O2SAT 95
[2025-07-27 21:47] VITALS: PULSE 105
[2025-07-27] MEDS ORDERED: ONDANSETRON ODT 4 MG TAB PO ONE (22:00)
[2025-07-27] MEDS ORDERED: SODIUM CHLORIDE 0.9% 1,000 ML IV ONE (22:00)
[2025-07-27] MEDS ORDERED: ALPRAZolam 0.5 MG TAB PO ONE (22:00)
[2025-07-28] MEDS ORDERED: ALPR0.5T PO (01:02)
[2025-07-28] MEDS ORDERED: ZOFR4T PO (01:02)
--- NOTE | 2025-07-28 01:03 | ED.PDOC ---
History of Present Illness HPI Comments This patient is a 20-year-old male who arrives the ED today via EMS due to complaints of anxiety and withdrawal concerns. Patient has been using Kratom and cava over the past few days as well as stopping drinking yesterday. Patient denies any fever, but states intermittent nausea. Patient was tachycardic and hypertensive at arrival. Chief Complaint: Anxiety Time Seen by MD: 21:49 Primary Care Provider: unknown Reviewed Notes: Nurses Notes, Tail Board Man Notes Allergies: Coded Allergies: No Known Drug Allergy (Verified Allergy, Unknown, 02/04/25) Home Meds Active Scripts Gabapentin (Gabapentin) 300 Mg Cap, 1 CAP PO TID, #63 CAP 0 Refills Prov:GEOVANNY MELENDEZ PAC 05/05/25 Sertraline Hcl (Zoloft) 50 Mg Tab, 1 TAB PO DAILY, #21 TAB 0 Refills Prov:GEOVANNY MELENDEZ PAC 05/05/25 Diazepam (Diazepam) 10 Mg Tab, 1 TAB PO BID for 7 Days, #14 TAB Prov:REY CERON MD 04/22/25 Information Source: Patient, Emergency Med Personnel Mode of Arrival: EMS Severity: Moderate Timing: Days Duration: Since onset Past Medical History PAST MEDICAL HISTORY: Anxiety Surgical History: Tonsillectomy Family History Family History: Reviewed,noncontributory to illness Social History Smoker: Non-Smoker Alcohol: Heavy Drugs: Denies Drug Use Lives In: Home Constitutional: reports: sweats, weakness; denies: chills, diaphoresis, fatigue, fever, malaise, others EENTM: denies: blurred vision, double vision, ear bleeding, ear discharge, ear drainage, ear pain, ear ringing, eye pain, eye redness, hearing loss, mouth pain, mouth swelling, nasal discharge, nose bleeding, nose congestion, nose pain, photophobia, tearing, throat pain, throat swelling, voice changes, others Respiratory: denies: cough, hemoptysis, orthopnea, SOB at rest, shortness of breath, SOB with excertion, stridor, wheezing, others Cardiovascular: denies: chest pain, dizzy spells, diaphoresis, Dyspnea on exertion, edema, irregular heart beat, left arm pain, lightheadedness, palpitations, PND, syncope, others Gastrointestinal: denies: abdomen distended, abdominal pain, blood streaked bowels, constipated, diarrhea, dysphagia, difficulty swallowing, hematemesis, melena, nausea, poor appetite, poor fluid intake, rectal bleeding, rectal pain, vomiting, others Genitourinary: denies: burning, dysuria, flank pain, frequency, hematuria, incontinence, penile discharge, penile sore, pain, testicle pain, testicle swelling, urgency, others Neurological: denies: dizziness, fainting, headache, left sided numbness, left sided weakness, numbness, paresthesia, pre-existing deficit, right sided numbness, right sided weakness, seizure, speech problems, tingling, tremors, weakness, others Musculoskeletal: denies: back pain, gout, joint pain, joint swelling, muscle pain, muscle stiffness, neck pain, others Integumetry: denies: bruises, change in color, change in hair/nails, dryness, laceration, lesions, lumps, rash, wounds, others Allergic/Immunocompromised: denies: Difficulty Healing, Frequent Infections, Hives, Itching, others Hematologic/Lymphatic: denies: anemia, blood clots, easy bleeding, easy bruising, swollen glands, others Endocrine: denies: excessive hunger, excessive sweating, excessive thirst, excessive urination, flushing, intolerance to cold, intolerance to heat, unexplained weight gain, unexplained weight loss, others Psychiatric: denies: anxiety, bipolar disorder, depression, hopeless, panic disorder, schizophrenia, sleepless, suicidal, others Physical Exam General Appearance: Mild Distress (Patient was distress due to his anxiety concerns.), Obese HEENT: Normal ENT Inspection, Pharynx Normal, TMs Normal Neck: Full Range of Motion, Non-Tender, Normal, Normal Inspection Respiratory: Chest Non-Tender, Lungs Clear, No Accessory Muscle Use, No Respiratory Distress, Normal Breath Sounds Cardiovascular: No Edema, No JVD, No Murmur, No Gallop, Normal Peripheral Pulses, Tachycardia Breast Exam: Deferred Gastrointestinal: No Organomegaly, Non Tender, No Pulsatile Mass, Normal Bowel Sounds, Soft Genitalia: Deferred Pelvic: Deferred Rectal: Deferred Extremities: No calf tenderness, Normal capillary refill, Normal inspection, N ormal range of motion, Non-tender, No pedal edema Neurologic: Alert, No Motor Deficits, No Sensory Deficits Cerebellar Function: NOT DONE Reflexes: NOT DONE Skin: Dry, Normal Color, Warm Lymphatic: No Adenopathy Was a procedure done? Was a procedure done?: No Differential Dx Considerations may include: Illicit drug use, alcoholism, anxiety, alternative drug use X-Ray, Labs, Meds, VS Vital Signs Date Time Temp Pulse Resp B/P (MAP) Pulse Ox O2 Delivery O2 Flow Rate FiO2 07/27/25 21:47 105 07/27/25 21:37 97.9 117 20 137/92 95 97.9 X-Ray, Labs, Meds, VS Comment Patient was provided with IV fluids and medication to aid him in his current state. Advise utilizing medication as needed and additionally, advised good hydration and healthy nutrition throughout. Time of 1ST Reevaluation: 01:00 Reevaluation 1ST: Improved Consultation: PCP Patient Education/Counseling: Diagnosis, Treatment Family Education/Counseling: Diagnosis, Treatment SEPSIS Sepsis Screen Date sepsis recognized/suspect: Jul 27, 2025 Time Sepsis recognized/suspect: 2136 Recent Procedure: No On Antibiotic Therapy: No Respiratory Rate >20: No Heart Rate >90: No Temp<36 C (96.8 F) or >38.3 C: No SBP <90 or MAP <65 mmHG: No New Acute Mental Status Change: No Is the patient on CPAP, BIPAP,: No Physician Orders Electrocardigram (07/27/25 21:50) Heplock Iv (07/27/25 ) Vital Signs Date Time Temp Pulse Resp B/P (MAP) Pulse Ox O2 Delivery O2 Flow Rate FiO2 07/27/25 21:47 105 07/27/25 21:37 97.9 117 20 137/92 95 97.9 Departure 1 Departure Time of Disposition: 01:00 Impression: Primary Impression: Alcohol abuse Additional Impression: Withdrawal complaint Disposition: HOME / SELF CARE / HOMELESS Condition: Stable Additional Instructions: Advised patient utilize medication as needed for symptomatic relief as well as good hydration and healthy nutrition throughout. e-Prescriptions Ondansetron Odt 4MG Tab (ZOFRAN PO) 4 Mg Tb 4 MG PO Q6HP PRN, #20 TAB ODT TAB-DISSOLVE IN MOUTH, THEN SWALLOW Prov: GEOVANNY MELENDEZ PAC 07/28/25 Alprazolam (Xanax) 0.5 Mg Tb 1 TAB PO Q8HP PRN, #10 TAB Prov: GEOVANNY MELENDEZ PAC 07/28/25 Discharged With: Self, Friend Critical Care Note Critical Care Time?: No Stability Stability form required: No Heart Score Heart Score: Heart Score Response (Comments) Value History N/A 0 EKG N/A 0 Age N/A 0 Risk Factors N/A 0 Troponin N/A 0 Total 0 GEOVANNY MELENDEZ PAC Jul 28, 2025 01:03
--- NOTE | 2025-07-28 03:06 | ECG ---
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
== END 2025-07-28 01:34 | disposition home or self-care (01) ==
LOC: ER 21:37 → EDBD 21:37 → ER 07-28 01:34
DX: F10.139 Alcohol abuse with withdrawal, unspecified (principal); F41.9 Anxiety disorder, unspecified; I10 Essential (primary) hypertension; Z79.899 Other long term (current) drug therapy; Z90.89 Acquired absence of other organs; Y90.9 Presence of alcohol in blood, level not specified
CPT/HCPCS: 93005

== ENCOUNTER 2025-08-17 06:49 | Emergency (ER) | payer OTHER ==
[~2025-08-17] VITALS: Ht 190.5 cm; Wt 181.8 kg
[~2025-08-17 06:49] MED LIST changes: +ALPR0.5T PO; +ZOFR4T PO
--- NOTE | 2025-08-17 06:54 | ED.PDOC ---
HPI Comments HPI: 20 y/o M, with PMHx of anxiety and alcohol abuse is BIBA for CC of chest pain. EMS reports, patient is coming from home where he c/o substernal chest pain and withdrawing from alcohol. Last alcohol intake was two days ago. Patient states, he usually drinks two 750mL bottles of Vodka daily. At this time patient endorses, symptoms of auditory hallucinations and tremors as a result of withdrawal. Patient comments, that he has also taken x150mg of Kratom Extract in the past x24 hours with no changes in mood or symptoms. Initial Vitals BP: HR: RR: O2: Temp: Past Medical History: ANXIETY, HTN, alcohol abuse Past Surgical History: DENIES ANY Social History: HEAVY ETOH ABUSE Medications: DENIES ANY Allergies: NKA HPI: Poor Historian. REVIEW OF SYSTEMS: CONSTITUTIONAL: Denies acute: fever, diaphoresis, chills, HEAD: Denies acute: headache, photophobia Eyes: Denies acute: Double vision, vision loss, eye pain, eye discharge. EARS: Denies acute: tinnitus, hearing loss, ear discharge, ear pain, THROAT: Denies acute: sore throat, swelling, difficulty swallowing , pain with swal lowing, change in voice. NECK: Denies acute: neck pain, neck swelling, stiff neck. HEART: Denies acute : LUNGS: Denies acute: SOB, wheezing, cough, hemoptysis ABDOMEN: Denies acute: abdominal pain, Nausea, Vomiting, diarrhea, melena , hematemesis, hematochezia SKIN: Denies acute: rash, redness, lesions, itchiness. EXTREMITIES: Denies acute: calf pain, numbness, tingling, weakness, denies pain in extremity. Denies acute: Low back pain. Neuro: Denies acute: focal neurological deficit, motor or sensory focal neurological deficit, seizure like activity, confusion, dizziness, change in mental status, loss of bowel or bladder function, cauda equina like symptoms. : Denies acute: dysuria, hematuria, flank pain, increase in urinary frequency. PSYCH: Denies acute: hallucination, suicidal ideation, homicidal ideation. PHYSICAL EXAM: General: ----mild----acute distress, awake and alert. Head: normocephalic, atraumatic. Neck: supple, trachea is midline, no swelling. Throat: Normal phonation. Eyes:, no erythema, no purulent discharge, no proptosis, no icterus. Heart: regular tachycardia, no significant murmur appreciated. Lungs: no apparent respiratory distress, Able to speak in full sentences. No wheezing, no rhonchi, no crackles. No stridors Clear to auscultation bilaterally. Abdomen: non tender to palpation, non distended, soft, no guarding, no rebound, + bowel sounds. Obese Neuro: Awake, Alert, oriented to name, self, situation, follows commands GCS=15. Speech is normal. Skin: no petechia, no purpura, no cyanosis, non-pale, not jaundice. Lower extremities: --trace bilateral - Pitting edema no deformity, no focal swelling, no calf TTP. Makes eye contact. moves all four extremities. Face: no apparent facial droop. ED COURSE: DISCLAIMER: This medical document was created using an electronic medical record system with voice recognition software and computerized dictation system. Although this document has been carefully reviewed, there might still be some phonetic and typographical errors. Occasional wrong-word or "sound-alike" substitutions may have occurred due to the inherent limitations of voice recognition software. These areas are purely typographical due to imperfections of the software programs and do not reflect any compromise in the patient's medical care. Please read the chart carefully and recognize, using context, where these substitutions have occurred. Time Seen by MD: 06:50 Primary Care Provider: unknown Reviewed Notes: Nurses Notes, Windows Vmware Engineer Notes, Medications, Allergies Allergies: Coded Allergies: No Known Drug Allergy (Verified Allergy, Unknown, 02/04/25) Home Meds Active Scripts Ondansetron Odt 4MG Tab (ZOFRAN PO) 4 Mg Tb, 4 MG PO Q6HP PRN, #20 TAB ODT TAB-DISSOLVE IN MOUTH, THEN SWALLOW Prov:GEOVANNY MELENDEZ PAC 07/28/25 Alprazolam (Xanax) 0.5 Mg Tb, 1 TAB PO Q8HP PRN, #10 TAB Prov:GEOVANNY MELENDEZ PAC 07/28/25 Gabapentin (Gabapentin) 300 Mg Cap, 1 CAP PO TID, #63 CAP 0 Refills Prov:GEOVANNY MELENDEZ PAC 05/05/25 Sertraline Hcl (Zoloft) 50 Mg Tab, 1 TAB PO DAILY, #21 TAB 0 Refills Prov:GEOVANNY MELENDEZ PAC 05/05/25 Diazepam (Diazepam) 10 Mg Tab, 1 TAB PO BID for 7 Days, #14 TAB Prov:REY CERON MD 04/22/25 Information Source: Patient Mode of Arrival: EMS Severity: Moderate Timing: Days Duration: Since onset Prehospital treatment: None Location: Substernal Radiation: No Radiation Onset: At Rest Cardiac Risk Factors: HTN PE Risk Factors: None History of: None Modifying Factors: Nothing Associated Signs and Symptoms: None EKG EKG : Pulse Rate (adult): 122 [place]: Normal Cardiac Rhythm: ST Block: None Hypertrophy: None ST: Normal Was a procedure done? Was a procedure done?: No CP Differential Dx Differential Diagnosis: Anxiety / Panic Attack, N/A Differential Diagnosis: Other (Ddx include but not limitied to gastritis, musculoskeletal pain, radiculopathy, atypical chest pain, dissection, aneurysm, ACS, unstable angina, hiatal hernia, GERD, anxiety, costochondritis, PE, pneumothroax, neoplasm, cardiac ischemia, drug abuse, anemia.) Comment Seizure, arrhythmia, electrolyte abnormality, delirium tremors X-Ray, Labs, Meds, VS Vital Signs Date Time Temp Pulse Resp B/P (MAP) Pulse Ox O2 Delivery O2 Flow Rate FiO2 08/17/25 08:14 110 08/17/25 07:30 98.5 122 25 161/91 (114) 95 98.5 08/17/25 07:30 122 25 95 Room Air* 0 21 08/17/25 06:55 98.0 128 16 179/107 98 98.0 08/17/25 06:55 122 08/17/25 06:49 122 Lab Test 08/17/25 07:57 Range/Units White Blood Count 8.6 4.4-10.8 10^3/uL Red Blood Count 4.70 4.5-5.90 10^6/uL Hemoglobin 15.4 13.5-17.5 g/dL Hematocrit 44.4 41.0-53.0 % Mean Corpuscular Volume 94.3 80.0-100.0 fL Mean Corpuscular Hemoglobin 32.8 H 28.0-32.0 pg Mean Corpuscular Hemoglobin Concent 34.7 32.0-36.0 g/dL Red Cell Distribution Width 16.3 H 11.8-14.3 % Platelet Count 162 140-450 10^3/uL Mean Platelet Volume 8.3 6.9-10.8 fL Neutrophils (%) (Auto) 84.7 H 37.0-80.0 % Lymphocytes (%) (Auto) 8.0 L 10.0-50.0 % Monocytes (%) (Auto) 6.9 0.0-12.0 % Eosinophils (%) (Auto) 0.0 0.0-7.0 % Basophils (%) (Auto) 0.4 0.0-2.0 % Neutrophils # (Auto) 7.3 1.6-8.6 10 ^3/uL Lymphocytes # (Auto) 0.7 0.4-5.4 10 ^3/uL Monocytes # (Auto) 0.6 0-1.3 10 ^3/uL Eosinophils # (Auto) 0 0-0.8 10 ^3/uL Basophils # (Auto) 0 0-0.2 10 ^3/uL Nucleated Red Blood Cells 0.0 % Sodium Level 141 136-145 mmol/L Potassium Level 2.9 L 3.5-5.1 mmol/L Chloride Level 92 L 98-107 mmol/L Carbon Dioxide Level 36 H 20-31 mmol/L Anion Gap 13 5-15 Blood Urea Nitrogen 6 L 9-23 mg/dL Creatinine 0.67 L 0.700-1.30 mg/dL Glomerular Filtration Rate Calc 135 >90 mL/min BUN/Creatinine Ratio 9.0 L 10.0-20.0 Serum Glucose 98 74-106 mg/dL Lactic Acid Level 2.8 *H 0.4-2.0 mmol/L Calcium Level 8.0 L 8.7-10.4 mg/dL Magnesium Level 1.2 L 1.6-2.6 mg/dL Total Bilirubin 1.6 H 0.2-1.0 mg/dL Aspartate Amino Transferase (AST) 308 H 13-40 U/L Alanine Aminotransferase (ALT) 41 H 7-40 U/L Alkaline Phosphatase 171 H 46-116 U/L Troponin I High Sensitivity 12 </=54 ng/L Total Protein 7.7 5.7-8.2 g/dL Albumin 3.7 3.2-4.8 g/dL Lipase 129 H 12-53 U/L Salicylates Level < 3.0 -30 mg/dL Acetaminophen Level < 2.0 L 10.0-20.0 UG/ML Plasma/Serum Blood Alcohol < 3.0 <10 mg/dL Current Medications Medications (Trade) Dose Ordered Sig/Nasra Route Start Time Stop Time Status Last Admin Sodium Chloride 1,000 ml @ 1,000 mls/hr Q1H ONCE IV 08/17/25 07:15 08/17/25 08:14 DC 08/17/25 08:06 Thiamine HCl 100 mg ONCE ONCE PO 08/17/25 07:15 08/17/25 07:16 DC 08/17/25 08:08 Lorazepam (Ativan Inj) 1 mg ONCE ONCE IV 08/17/25 07:15 08/17/25 07:16 DC 08/17/25 08:13 Potassium Chloride (Klor-Con Tablet) 60 meq ONCE ONCE PO 08/17/25 09:00 08/17/25 09:18 DC 08/17/25 10:00 Magnesium Sulfate/ Dextrose 100 ml @ 100 mls/hr ONCE ONCE IV 08/17/25 09:00 08/17/25 09:59 DC 08/17/25 10:02 Chlordiazepoxide HCl (Librium Capsule) 25 mg ONCE ONCE PO 08/17/25 09:00 08/17/25 09:58 DC 08/17/25 10:00 [place] [address] Ph: [phone] DIAGNOSTIC IMAGING Diagnostic Imaging Report : [id number] Signed PATIENT: JOHANA BREAUX ACCT: [id number] UNIT: [id number] : 2005 LOC: ER ROOM / BED: / AGE / SEX: 20 / M ADM STATUS: REG ER SERVICE 0701 ORDERING PHYSICIAN: MARLI DE LA TORRE DO PROCEDURE(s): CXRP - CHEST PORTABLE REASON: cp ORDER NUMBER(s): [id number], ACCESSION NUMBER(s): [id number] INDICATION: cp TECHNIQUE: Frontal view of the chest. COMPARISON: XY CHEST XRAY 1 VIEW on DOS: 05/06/25, XY CHEST XRAY 1 VIEW on DOS: 04/21/25 FINDINGS: . The heart and mediastinal contours are grossly unremarkable. There is no evidence of pleural disease. The lungs are clear. The bony structures of the chest are intact without fracture. IMPRESSION: 1. No evidence of acute disease. ATED BY: TIMMY HUMPHREYS MD DICTATED DATE/TIME: 08/17/25737 SIGNED BY: TIMMY HUMPHREYS MD SIGNED DATE/TIME: 08/17/25737 CC: Time of 1ST Reevaluation: 07:20 Reevaluation 1ST: Unchanged Time of 2ND Reevaluation: 09:22 (THE CASE WAS DISCUSSED WITH THE [facility]MITTING TEAM (HPI, PHYSICAL EXAM, LABS AND DIAGNOSTIC TESTS THAT WERE AVAILABLE AT THE TIME OF DISPOSITION, ED COURSE, TREATMENT PLAN) ON THE PHONE. THEY AGREED TO TRANSFER THE PATIENT TO THEIR SERVICE BY [facility] FOR FURTHER EVALUATION AND TREATMENT. DR. MILAN--. AUTHORIZATION NUMBER IS--[id number]) Patient Education/Counseling: Diagnosis, Treatment Family Education/Counseling: No Family Present Comments MDM: patient presented with the above HPI.--cardiac and alcohol withdrawal----workup was initiated. patient was found with the above mentioned diagnosis. the following medications were ordered: please refer to order lists of meds and tests obtained by myself Dr. De La Torre. Patient ED course and VS have been stabilized. Patient has been reassessed in the ED and remained in a stable condition. Pertinent incidental findings were discussed with the patient and/or family. Patient/family voices understanding and is agreeable with plan. Patient has been observed in the ED adequate length of time to insure impr ovement/stability. Escalation of care considered: Consideration of escalation to observation or admission Patient was given fluids, Ativan, Librium, thiamine, magnesium replacement. Patient was transferred per insurance requirement for further evaluation and treatment of their presentation. All the reports of any imaging studies that were ordered by myself were reviewed by myself. SEPSIS Sepsis Screen Physician Orders Electrocardigram (08/17/25 07:56) Electrocardigram (08/17/25 09:56) High Density Finishing Operator (08/17/25 ) Chest Portable (08/17/25 07:01) Vital Signs Date Time Temp Pulse Resp B/P (MAP) Pulse Ox O2 Delivery O2 Flow Rate FiO2 08/17/25 08:14 110 08/17/25 07:30 98.5 122 25 161/91 (114) 95 98.5 08/17/25 07:30 122 25 95 Room Air* 0 21 08/17/25 06:55 98.0 128 16 179/107 98 98.0 08/17/25 06:55 122 08/17/25 06:49 122 Laboratory Tests Test 08/17/25 07:57 Lactic Acid Level 2.8 mmol/L (0.4-2.0) *H White Blood Count 8.6 10^3/uL (4.4-10.8) Medications Medications Dose Ordered Sig/Nasra Route Start Time Stop Time Status Last Admin Dose Admin Chlordiazepoxide HCl 25 mg ONCE ONCE PO 08/17/25 09:00 08/17/25 09:58 DC 08/17/25 10:00 Magnesium Sulfate/ Dextrose 100 ml @ 100 mls/hr ONCE ONCE IV 08/17/25 09:00 08/17/25 09:59 DC 08/17/25 10:02 Potassium Chloride 60 meq ONCE ONCE PO 08/17/25 09:00 08/17/25 09:18 DC 08/17/25 10:00 Departure 1 Departure Time of Disposition: 07:47 Impression: Primary Impression: Alcohol abuse Additional Impressions: Alcohol withdrawal Sinus tachycardia Elevated lipase Disposition: 02 SHORT TERM HOSPITAL Admit to: [facility] Condition: Guarded Discharged With: Self Critical Care Note Critical Care Time?: Yes (1 hr-critical care time only) Heart Score Heart Score: Heart Score Response (Comments) Value History Slightly Suspicious 0 EKG Normal 0 Age <45 0 Risk Factors 1 or 2 risk factors 1 Troponin Normal limit 0 Total 1 I personally scribed for MARLI DE LA TORRE DO ([email or web address]) on 08/17/25 at 06:54. Electronically submitted by Radha Tapia ([email or web address]). I personally scribed for MARLI DE LA TORRE DO ([email or web address]) on 08/17/25 at 06:55. Electronically submitted by Radha Tapia ([email or web address]). I personally scribed for MARLI DE LA TORRE DO ([email or web address]) on 08/17/25 at 06:59. Electronically submitted by Radha Tapia ([email or web address]). I personally scribed for MARLI DE LA TORRE DO ([email or web address]) on 08/17/25 at 07:34. Electronically submitted by Radha Tapia ([email or web address]). I personally scribed for MARLI DE LA TORRE DO ([email or web address]) on 08/17/25 at 07:37. Electronically submitted by Radha Tapia ([email or web address]). I personally scribed for MARLI DE LA TORRE DO ([email or web address]) on 08/17/25 at 07:47. Electronically submitted by Radha Tapia ([email or web address]). I personally scribed for MARLI DE LA TORRE DO ([email or web address]) on 08/17/25 at 08:04. Electronically submitted by Radha Tapia ([email or web address]). MARLI DE LA TORRE DO Aug 17, 2025 06:54
--- NOTE | 2025-08-17 06:57 | ECG ---
[facility] Test Date: 2025-08-17 Test Time: 06:49:57 Pat Name: JOHANA BREAUX Department: [facility] ED Room: [address] [place] [address] Gender: M [place]: luís : 2005 Requested By: MARLI DE LA TORRE Order Number: [id number] Reading MD: Eduin Madrid Measurements Intervals [place] Rate: 122 P: 65 NM: 155 QRS: 30 QRSD: 107 T: 0 QT: 335 QTc: 478 Interpretive Statements Sinus tachycardia Abnormal inferior Q waves Borderline prolonged QT interval Electronically Signed On 08-17-2025 22:21:04 PDT by Eduin Madrid Please click the below link to view image of tracing.
[2025-08-17 07:30] VITALS: PULSE 122; RESP 25; O2SAT 95
--- NOTE | 2025-08-17 07:40 | DVH ---
INDICATION: cp TECHNIQUE: Frontal view of the chest. COMPARISON: XY CHEST XRAY 1 VIEW on DOS: 05/06/25, XY CHEST XRAY 1 VIEW on DOS: 04/21/25 FINDINGS: . The heart and mediastinal contours are grossly unremarkable. There is no evidence of pleural disea se. The lungs are clear. The bony structures of the chest are intact without fracture. IMPRESSION: 1. No evidence of acute disease.
[2025-08-17] MEDS: SODIUM CHLORIDE 0.9% 1,000 ML IV ONE (08:06)
[2025-08-17] MEDS: THIAMINE HCL 100 MG TAB PO ONE (08:08)
[2025-08-17] MEDS: LORazepam 2MG/ML-1ML VIAL IV ONE (08:13)
[2025-08-17 08:16] LABS: Hematocrit 44.4 % (41.0-53.0); Hemoglobin 15.4 g/dL (13.5-17.5); Mean Corpuscular Hemoglobin 32.8 pg (28.0-32.0); Mean Corpuscular Volume 94.3 fL (80.0-100.0); Nucleated Red Blood Cells % 0.0 %
[2025-08-17 08:34] LABS: Albumin 3.7 g/dL (3.2-4.8); Anion Gap 13 (5-15); BUN/Creatinine Ratio 9.0 (10.0-20.0); Glucose 98 mg/dL (74-106); Sodium 141 mmol/L (136-145); Total Protein 7.7 g/dL (5.7-8.2)
[2025-08-17 08:45] LABS: Alanine Aminotransferase 41 U/L (7-40); Alkaline Phosphatase 171 U/L (46-116); Bilirubin, Total 1.6 mg/dL (0.2-1.0); Blood Urea Nitrogen 6 mg/dL (9-23); Calcium 8.0 mg/dL (8.7-10.4); Carbon Dioxide 36 mmol/L (20-31); Chloride 92 mmol/L (98-107); Magnesium 1.2 mg/dL (1.6-2.6); Potassium 2.9 mmol/L (3.5-5.1)
[2025-08-17 08:51] LABS: Lactic Acid w/Reflex 2.8 mmol/L (0.4-2.0)
[2025-08-17] MEDS ORDERED: SODIUM CHLORIDE 0.9% 1,000 ML IV ONE (09:00)
[2025-08-17] MEDS ORDERED: NITROGLYCERIN 0.4 MG SL TAB SL PRN (09:45)
[2025-08-17] MEDS ORDERED: ONDANSETRON HCL 4 MG/2 ML VIAL IV PRN (09:45)
[2025-08-17] MEDS ORDERED: LORazepam 2MG/ML-1ML VIAL IV PRN (09:45)
[2025-08-17] MEDS ORDERED: LORazepam 2MG/ML-1ML VIAL IV SCH (09:45)
[2025-08-17] MEDS ORDERED: THIAMINE HCL 100 MG TAB PO ONE (09:45)
--- NOTE | 2025-08-17 09:53 | DVHHP2 ---
History of Present Illness Reason for Visit: ETOH withdrawals History of Present Illness Arnaldo Strauss is a 20-year-old male with past medical history of anxiety, hypertension, and alcohol use who presents to the ED with chest pain, auditory hallucinations, and tremors x1 day. Patient reports that his last alcohol intake was 2 days ago and he typically drinks 750 mL bottles of vodka daily. Informed by ED team that [facility] will take patient. ALCOHOL: heavy Domestic Violence: Neg Review of Systems Constitutional: Yes: Other (Auditory hallucinations with tremors) Cardiovascular: Chest Pain Allergies: Coded Allergies: No Known Drug Allergy (Verified Allergy, Unknown, 02/04/25) Exam Vital Signs Vital Signs Date Time Temp Pulse Resp B/P (MAP) Pulse Ox O2 Delivery O2 Flow Rate FiO2 08/17/25 08:14 110 08/17/25 07:30 98.5 25 161/91 (114) 95 98.5 08/17/25 07:30 Room Air* 0 21 Labs/Xrays Labs Test 08/17/25 07:57 Range/Units White Blood Count 8.6 4.4-10.8 10^3/uL Red Blood Count 4.70 4.5-5.90 10^6/uL Hemoglobin 15.4 13.5-17.5 g/dL Hematocrit 44.4 41.0-53.0 % Mean Corpuscular Volume 94.3 80.0-100.0 fL Mean Corpuscular Hemoglobin 32.8 H 28.0-32.0 pg Mean Corpuscular Hemoglobin Concent 34.7 32.0-36.0 g/dL Red Cell Distribution Width 16.3 H 11.8-14.3 % Platelet Count 162 140-450 10^3/uL Mean Platelet Volume 8.3 6.9-10.8 fL Neutrophils (%) (Auto) 84.7 H 37.0-80.0 % Lymphocytes (%) (Auto) 8.0 L 10.0-50.0 % Monocytes (%) (Auto) 6.9 0.0-12.0 % Eosinophils (%) (Auto) 0.0 0.0-7.0 % Basophils (%) (Auto) 0.4 0.0-2.0 % Neutrophils # (Auto) 7.3 1.6-8.6 10 ^3/uL Lymphocytes # (Auto) 0.7 0.4-5.4 10 ^3/uL Monocytes # (Auto) 0.6 0-1.3 10 ^3/uL Eosinophils # (Auto) 0 0-0.8 10 ^3/uL Basophils # (Auto) 0 0-0.2 10 ^3/uL Nucleated Red Blood Cells 0.0 % Sodium Level 141 136-145 mmol/L Potassium Level 2.9 L 3.5-5.1 mmol/L Chloride Level 92 L 98-107 mmol/L Carbon Dioxide Level 36 H 20-31 mmol/L Anion Gap 13 5-15 Blood Urea Nitrogen 6 L 9-23 mg/dL Creatinine 0.67 L 0.700-1.30 mg/dL Glomerular Filtration Rate Calc 135 >90 mL/min BUN/Creatinine Ratio 9.0 L 10.0-20.0 Serum Glucose 98 74-106 mg/dL Lactic Acid Level 2.8 *H 0.4-2.0 mmol/L Calcium Level 8.0 L 8.7-10.4 mg/dL Magnesium Level 1.2 L 1.6-2.6 mg/dL Total Bilirubin 1.6 H 0.2-1.0 mg/dL Aspartate Amino Transferase (AST) 308 H 13-40 U/L Alanine Aminotransferase (ALT) 41 H 7-40 U/L Alkaline Phosphatase 171 H 46-116 U/L Troponin I High Sensitivity 12 </=54 ng/L Total Protein 7.7 5.7-8.2 g/dL Albumin 3.7 3.2-4.8 g/dL Plasma/Serum Blood Alcohol < 3.0 <10 mg/dL INDICATION: cp TECHNIQUE: Frontal view of the chest. COMPARISON: XY CHEST XRAY 1 VIEW on DOS: 05/06/25, XY CHEST XRAY 1 VIEW on DOS: 04/21/25 FINDINGS: . The heart and mediastinal contours are grossly unremarkable. There is no evidence of pleural disease. The lungs are clear. The bony structures of the chest are intact without fracture. IMPRESSION: 1. No evidence of acute disease. SEPSIS Sepsis Screen Date sepsis recognized/suspect: Aug 17, 2025 Time Sepsis recognized/suspect: 729 Recent Procedure: No On Antibiotic Therapy: No Respiratory Rate >20: No Heart Rate >90: No Temp<36 C (96.8 F) or >38.3 C: No SBP <90 or MAP <65 mmHG: No New Acute Mental Status Change: No Is the patient on CPAP, BIPAP,: No Physician Orders Electrocardigram (08/17/25 07:56) Electrocardigram (08/17/25 09:56) Blending Supervisor (08/17/25 ) Chest Portable (08/17/25 07:01) Troponin-I Hs (08/17/25 10:35) Troponin-I Hs (08/17/25 12:35) Electrocardigram (08/17/25 12:35) Drug Screen (08/17/25 07:01) Lipase (08/17/25 07:14) Acetaminophen (08/17/25 07:16) Salicylate (08/17/25 07:16) Magnesium Sulfate 1gm/100ml (08/17/25 09:00) Sodium Chloride 0.9% (08/17/25 09:00) Vital Signs Date Time Temp Pulse Resp B/P (MAP) Pulse Ox O2 Delivery O2 Flow Rate FiO2 08/17/25 08:14 110 08/17/25 07:30 98.5 122 25 161/91 (114) 95 98.5 08/17/25 07:30 122 25 95 Room Air* 0 21 08/17/25 06:55 98.0 128 16 179/107 98 98.0 08/17/25 06:55 122 08/17/25 06:49 122 Laboratory Tests Test 08/17/25 07:57 Lactic Acid Level 2.8 mmol/L (0.4-2.0) *H White Blood Count 8.6 10^3/uL (4.4-10.8) Medications Medications Dose Ordered Sig/Nasra Route Start Time Stop Time Status Last Admin Dose Admin Lorazepam 1 mg ONCE ONCE IV 08/17/25 07:15 08/17/25 07:16 DC 08/17/25 08:13 1 MG Sodium Chloride 1,000 ml @ 1,000 mls/hr Q1H ONCE IV 08/17/25 07:15 08/17/25 08:14 DC 08/17/25 08:06 1,000 MLS/HR Thiamine HCl 100 mg ONCE ONCE PO 08/17/25 07:15 08/17/25 07:16 DC 08/17/25 08:08 100 MG Assessment/Plan Assessment/Plan Assessment ETOH withdrawals Chest pain likely due to ETOH use Morbid obesity Hypokalemia Hypomagnesemia Hyperbilirubinemia likely due to alcohol use Transaminitis likely due to alcohol use Lactic acidosis likely sepsis History of hypertension Plan Admit to tele monitor for DTs CIWA Multivitamins Thiamine Folic acid P.r.n. Ativan Replete lytes Monitor T bili Antiemetics Pain management Mag level Potassium level Salicylate level Tylenol level UA UDS Lactic IV antibiotics-ceftriaxone Chest x-ray EKG Troponin noted Diet Antihypertensives DVT prophylaxis-not indicated patient ambulating PUD prophylaxis-not indicated history of GERD or GI bleed Discussed plan of care with patient and nurse CLAYTON 11 Counseled patient on lifestyle modifications, diet, and exercise Counseled patient on cessation of alcohol use [id number] Preventive counseling healthy eating habits, physical activity, and regular checkups Plan discussed with: Patient LINO GILES DEPORTATION OFFICER Aug 17, 2025 09:53
[2025-08-17 09:55] LABS: Acetaminophen < 2.0 UG/ML (10.0-20.0); Salicylate < 3.0 mg/dL (-30)
[2025-08-17] MEDS ORDERED: MORPHINE SULFATE 4 MG/ML SYR/VIAL IV PRN (10:00)
[2025-08-17] MEDS: POTASSIUM CHL 20 Meq TABLET PO ONE (10:00)
[2025-08-17] MEDS: FOLIC ACID 1 MG TAB PO ONE (10:01)
[2025-08-17] MEDS: MULTIPLE VITAMIN TAB PO ONE (10:01)
[2025-08-17] MEDS: MAGNESIUM SULFATE 1GM/100ML 100 ML IV ONE (10:02)
[2025-08-17] MEDS ORDERED: LORazepam 2MG/ML-1ML VIAL IV ONE (10:30)
[2025-08-17 10:55] VITALS: BP 159/53; PULSE 123; RESP 24; TEMP 97.6; O2SAT 95
[2025-08-17 12:28] LABS: Amphetamine Screen, Urine Neg (NEGATIVE); Barbiturate Scree,Urine Neg (NEGATIVE); Benzodiazephine Screen, Urine Pos (NEGATIVE); Cannabinoid Screen, Urine Neg (NEGATIVE); Cocaine Screen, Urine Neg (NEGATIVE); Opiate Scree,Urine Neg (NEGATIVE)
[2025-08-17 12:30] LABS: Phencyclidine Screen, Urine Neg (NEGATIVE)
--- NOTE | 2025-08-18 01:36 | ECG ---
[facility] Test Date: 2025-08-17 Test Time: 09:44:38 Pat Name: JOHANA BREAUX Department: ER Room: Gender: M Sap Consultant: : 2005 Requested By: MARLI DE LA TORRE Order Number: [id number] Reading MD: Eduin Madrid Measurements Intervals [place] Rate: 116 P: 72 MA: 137 QRS: 50 QRSD: 104 T: 13 QT: 358 QTc: 498 Interpretive Statements Sinus tachycardia Prolonged QT interval Baseline wander in lead(s) V2 Electronically Signed On 08-18-2025 12:18:34 PDT by Eduin Madrid Please click the below link to view image of tracing.
[2025-08-18] MEDS ORDERED: MULTIPLE VITAMIN TAB PO SCH (10:00)
[2025-08-18] MEDS ORDERED: FOLIC ACID 1 MG TAB PO SCH (10:00)
[2025-08-18] MEDS ORDERED: THIAMINE HCL 100 MG TAB PO SCH (10:00)
--- NOTE | 2025-08-18 12:24 | ECG ---
[facility] Test Date: 2025-08-17 Test Time: 08:14:52 Pat Name: JOHANA BREAUX Department: ER Room: Gender: M Director Home: : 2005 Requested By: MARLI DE LA TORRE Order Number: [id number] Reading MD: Eduin Madrid Measurements Intervals [place] Rate: 110 P: 68 AL: 147 QRS: 92 QRSD: 107 T: 15 QT: 375 QTc: 508 Interpretive Statements Sinus tachycardia Borderline right axis deviation Abnormal inferior Q waves Prolonged QT interval Baseline wander in lead(s) II,III,aVF Electronically Signed On 08-18-2025 12:35:06 PDT by Eduin Madrid Please click the below link to view image of tracing.
== END 2025-08-17 11:20 | disposition short-term general hospital (02) ==
LOC: EDBD 06:49 → ER 06:49 → UNDOADMIN 09:43 → OVERFLOW 09:43 → ER 11:20
DX: F10.239 Alcohol dependence with withdrawal, unspecified (principal); R00.0 Tachycardia, unspecified; R74.8 Abnormal levels of other serum enzymes; I10 Essential (primary) hypertension; Z79.899 Other long term (current) drug therapy; Y90.9 Presence of alcohol in blood, level not specified
CPT/HCPCS: 36415; 71045; 80053; 80307; 80320; 80329; 83605; 83690; 83735; 84484; 85025; 93005; 96361; 96365; 96375; 99291; J2060; J3475; J7030

== ENCOUNTER 2025-08-19 00:29 | Emergency (ER) | payer OTHER ==
[~2025-08-19] VITALS: Ht 190.5 cm; Wt 181.0 kg
--- NOTE | 2025-08-19 00:45 | ED.PDOC ---
History of Present Illness HPI Comments 20 y/o morbidly obese M is BIBA for c/c of abnormal labs, with associate nausea and vomiting. Patient reports on receiving a call for abnormal lab values from [facility] after recent hospital visit and transfer for alcohol withdrawal. No endorsement of any further associated symptoms. Significant hist ory of anxiety and HTN - on Zoloft and Librium. Chief Complaint: Nausea/Vomiting Time Seen by MD: 00:30 Primary Care Provider: unknown Reviewed Notes: Nurses Notes, Car Ferrier Notes, Medications, Allergies Allergies: Coded Allergies: No Known Drug Allergy (Verified Allergy, Unknown, 02/04/25) Home Meds Active Scripts Ondansetron Odt 4MG Tab (ZOFRAN PO) 4 Mg Tb, 4 MG PO Q6HP PRN, #20 TAB ODT TAB-DISSOLVE IN MOUTH, THEN SWALLOW Prov:GEOVANNY MELENDEZ [facility] 07/28/25 Alprazolam (Xanax) 0.5 Mg Tb, 1 TAB PO Q8HP PRN, #10 TAB Prov:GEOVANNY MELENDEZ [facility] 07/28/25 Gabapentin (Gabapentin) 300 Mg Cap, 1 CAP PO TID, #63 CAP 0 Refills Prov:GEOVANNY MELENDEZ [facility] 05/05/25 Sertraline Hcl (Zoloft) 50 Mg Tab, 1 TAB PO DAILY, #21 TAB 0 Refills Prov:GEOVANNY MELENDEZ [facility] 05/05/25 Diazepam (Diazepam) 10 Mg Tab, 1 TAB PO BID for 7 Days, #14 TAB Prov:REY CERON MD 04/22/25 Information Source: Patient, Emergency Med Personnel Mode of Arrival: EMS Severity: Moderate Timing: Hours Duration: Since onset Prehospital treatment: 12 Lead EKG, Validation Manager Past Medical History PAST MEDICAL HISTORY: Anxiety, HTN Surgical History: Tonsillectomy Family History Family History: Reviewed,noncontributory to illness Social History Smoker: Non-Smoker Alcohol: Heavy Drugs: Denies Drug Use Lives In: Home All Other Systems: Reviewed and Negative (As per HPI) Physical Exam General Appearance: Moderate Distress, Obese HEENT: Normal ENT Inspection, Pharynx Normal, TMs Normal Neck: Full Range of Motion, Non-Tender, Normal, Normal Inspection Respiratory: Chest Non-Tender, Lungs Clear, No Accessory Muscle Use, No Respiratory Distress, Normal Breath Sounds Cardiovascular: No Edema, No JVD, No Murmur, No Gallop, Normal Peripheral Pulses, Regular Rate/Rhythm Breast Exam: Deferred Gastrointestinal: No Organomegaly, Non Tender, No Pulsatile Mass, Normal Bowel Sounds, Soft Genitalia: Deferred Pelvic: Deferred Rectal: Deferred Extremities: No calf tenderness, Normal capillary refill, Normal inspection, Normal range of motion, Non-tender, No pedal edema Musculoskeletal : Apperance: Normal Neurologic: Alert, veterinary surgery technician II-XII nml as Tested, No Motor Deficits, Normal Affect, Normal Mood, No Sensory Deficits Cerebellar Function: NOT DONE Reflexes: NOT DONE Skin: Dry, Normal Color, Warm Peripheral Pulses: 3+ Radial (R), 3+ Radial (L) Lymphatic: No Adenopathy Was a procedure done? Was a procedure done?: No Differential Dx Considerations may include: alcohol withdrawal, substance dependency, viral syndrome, gastritis, gastroenteritis, among others X-Ray, Labs, Meds, VS Vital Signs Date Time Temp Pulse Resp B/P (MAP) Pulse Ox O2 Delivery O2 Flow Rate FiO2 08/19/25 03:28 78 18 114/86 (95) 98 08/19/25 00:29 98.2 90 18 125/78 96 98.2 Lab Test 08/19/25 00:50 Range/Units White Blood Count 4.8 # 4.4-10.8 10^3/uL Red Blood Count 4.60 4.5-5.90 10^6/uL Hemoglobin 15.0 13.5-17.5 g/dL Hematocrit 44.0 41.0-53.0 % Mean Corpuscular Volume 95.6 80.0-100.0 fL Mean Corpuscular Hemoglobin 32.7 H 28.0-32.0 pg Mean Corpuscular Hemoglobin Concent 34.2 32.0-36.0 g/dL Red Cell Distribution Width 16.2 H 11.8-14.3 % Platelet Count 103 L 140-450 10^3/uL Mean Platelet Volume 9.0 6.9-10.8 fL Neutrophils (%) (Auto) 66.9 37.0-80.0 % Lymphocytes (%) (Auto) 21.4 10.0-50.0 % Monocytes (%) (Auto) 10.6 0.0-12.0 % Eosinophils (%) (Auto) 0.4 0.0-7.0 % Basophils (%) (Auto) 0.7 0.0-2.0 % Neutrophils # (Auto) 3.2 1.6-8.6 10 ^3/uL Lymphocytes # (Auto) 1.0 0.4-5.4 10 ^3/uL Monocytes # (Auto) 0.5 0-1.3 10 ^3/uL Eosinophils # (Auto) 0 0-0.8 10 ^3/uL Basophils # (Auto) 0 0-0.2 10 ^3/uL Nucleated Red Blood Cells 0.2 % Sodium Level 142 136-145 mmol/L Potassium Level 3.0 L 3.5-5.1 mmol/L Chloride Level 99 98-107 mmol/L Carbon Dioxide Level 31 20-31 mmol/L Anion Gap 12 5-15 Blood Urea Nitrogen < 5 L 9-23 mg/dL Creatinine 0.64 L 0.700-1.30 mg/dL Glomerular Filtration Rate Calc 137 >90 mL/min BUN/Creatinine Ratio 7.8 L 10.0-20.0 Serum Glucose 90 74-106 mg/dL Calcium Level 8.1 L 8.7-10.4 mg/dL Plasma/Serum Blood Alcohol < 3.0 <10 mg/dL Current Medications Medications (Trade) Dose Ordered Sig/Nasra Route Start Time Stop Time Status Last Admin Sodium Chloride 1,000 ml @ 1,000 mls/hr Q1H ONCE IV 08/19/25 00:45 08/19/25 01:44 DC 08/19/25 03:20 Ondansetron HCl (Zofran) 4 mg ONCE ONCE IV 08/19/25 00:45 08/19/25 00:46 DC 08/19/25 03:21 Potassium Bicarbonate (Klor-Con/Ef) 50 meq ONCE ONCE PO 08/19/25 01:45 08/19/25 01:46 DC 08/19/25 03:21 Patient alert. Came in because he had some abnormal labs called in by [facility]. Vitals stable. Answering questions. He is morbidly obese. He was here recently was transferred to [facility] facility for alcohol withdrawal. Establish intravenous access. Was given fluids. Was given Zofran. Reviewed his previous visit. Explained to the patient. Continue monitoring. [facility] stated that he had Gram-positive organism. Was given prescription of amoxicillin antibiotic Unknown where the sources from. Made appointment with his primary care physician. Was told to come back if there is any problem. [facility] approved ER visit [id number]. Time of 1ST Reevaluation: 01:00 Reevaluation 1ST: Unchanged Patient Education/Counseling: Need For Follow Up Family Education/Counseling: No Family Present SEPSIS Sepsis Screen Vital Signs Date Time Temp Pulse Resp B/P (MAP) Pulse Ox O2 Delivery O2 Flow Rate FiO2 08/19/25 03:28 78 18 114/86 (95) 98 08/19/25 00:29 98.2 90 18 125/78 96 98.2 Laboratory Tests Test 08/19/25 00:50 White Blood Count 4.8 10^3/uL (4.4-10.8) # Medications Medications Dose Ordered Sig/Nasra Route Start Time Stop Time Status Last Admin Dose Admin Ondansetron HCl 4 mg ONCE ONCE IV 08/19/25 00:45 08/19/25 00:46 DC 08/19/25 03:21 Potassium Bicarbonate 50 meq ONCE ONCE PO 08/19/25 01:45 08/19/25 01:46 DC 08/19/25 03:21 Sodium Chloride 1,000 ml @ 1,000 mls/hr Q1H ONCE IV 08/19/25 00:45 08/19/25 01:44 DC 08/19/25 03:20 Departure 1 Departure Time of Disposition: 00:55 Impression: Primary Impression: Alcohol abuse Additional Impressions: Gram positive bacterial infection Hypokalemia Disposition: 01 HOME / SELF CARE / HOMELESS Condition: Good e-Prescriptions Amoxicillin & Pot Clavulanate (AUGMENTIN TABLET) 875 Mg Tb 875 MG PO BID for 10 Days, #20 TAB Prov: STEPHANIE UPTON MD 08/19/25 Discharged With: Self Critical Care Note Critical Care Time?: No Stability Stability form required: No Heart Score Heart Score: Heart Score Response (Comments) Value History N/A 0 EKG N/A 0 Age N/A 0 Risk Factors N/A 0 Troponin N/A 0 Total 0 I personally scribed for STEPHANIE UPTON MD ([email or web address]) on 08/19/25 at 00:45. Electronically submitted by Christ Martinez [email or web address]). STEPHANIE UPTON MD Aug 19, 2025 00:45
[2025-08-19 01:08] LABS: Hematocrit 44.0 % (41.0-53.0); Hemoglobin 15.0 g/dL (13.5-17.5); Mean Corpuscular Hemoglobin 32.7 pg (28.0-32.0); Mean Corpuscular Volume 95.6 fL (80.0-100.0); Nucleated Red Blood Cells % 0.2 %
[2025-08-19 01:12] LABS: Chloride 99 mmol/L (98-107); Sodium 142 mmol/L (136-145)
[2025-08-19 01:13] LABS: Anion Gap 12 (5-15)
[2025-08-19 01:18] LABS: Glucose 90 mg/dL (74-106)
[2025-08-19 01:23] LABS: BUN/Creatinine Ratio 7.8 (10.0-20.0); Blood Urea Nitrogen < 5 mg/dL (9-23); Calcium 8.1 mg/dL (8.7-10.4); Carbon Dioxide 31 mmol/L (20-31); Potassium 3.0 mmol/L (3.5-5.1)
[2025-08-19] MEDS: SODIUM CHLORIDE 0.9% 1,000 ML IV ONE (03:20)
[2025-08-19] MEDS: ONDANSETRON HCL 4 MG/2 ML VIAL IV ONE (03:21)
[2025-08-19] MEDS: POTASSIUM EFFERVESENT TAB 25 MEQ PO ONE (03:21)
[2025-08-19 03:28] VITALS: PULSE 78; RESP 18; O2SAT 98
[2025-08-19] MEDS ORDERED: AMOX500T3 PO (03:37)
[2025-08-19] MEDS ORDERED: AUG875T PO (03:39)
[2025-08-19 04:14] VITALS: BP 133/70; PULSE 76; RESP 20; TEMP 98; O2SAT 99
== END 2025-08-19 04:15 | disposition home or self-care (01) ==
LOC: EDBD 00:29 → ER 00:29 → EDUNIT# 00:29 → ER 04:15
DX: F10.10 Alcohol abuse, uncomplicated (principal); A48.8 Other specified bacterial diseases; E87.6 Hypokalemia; I10 Essential (primary) hypertension; F41.9 Anxiety disorder, unspecified; Z79.899 Other long term (current) drug therapy; Z90.89 Acquired absence of other organs; Y90.9 Presence of alcohol in blood, level not specified
CPT/HCPCS: 36415; 80048; 80320; 85025; 96361; 96374; 99283; J2405; J7030

== ENCOUNTER 2025-10-28 03:01 | Emergency (ER) | payer OTHER ==
[~2025-10-28] VITALS: Ht 190.5 cm; Wt 108.1 kg
[~2025-10-28 03:01] MED LIST changes: +AUG875T PO
--- NOTE | 2025-10-28 03:21 | ED.PDOC ---
History of Present Illness HPI Comments 20-year-old male who came to ER via EMS for withdrawals. Patient is seen here multiple times for alcoholism. Last drank alcohol yesterday. Has been having nausea, vomiting, anxiety and tremors recently. Patient has been wanting to quit drinking alcohol. Chief Complaint: Withdrawals Time Seen by MD: 03:20 Primary Care Provider: unknown Reviewed Notes: Nurses Notes Allergies: Coded Allergies: No Known Drug Allergy (Verified Allergy, Unknown, 02/04/25) Home Meds Active Scripts Amoxicillin & Pot Clavulanate (AUGMENTIN TABLET) 875 Mg Tb, 875 MG PO BID for 10 Days, #20 TAB Prov:STEPHANIE UPTON MD 08/19/25 Ondansetron Odt 4MG Tab (ZOFRAN PO) 4 Mg Tb, 4 MG PO Q6HP PRN, #20 TAB ODT TAB-DISSOLVE IN MOUTH, THEN SWALLOW Prov:GEOVANNY MELENDEZ [facility] 07/28/25 Alprazolam (Xanax) 0.5 Mg Tb, 1 TAB PO Q8HP PRN, #10 TAB Prov:GEOVANNY MELENDEZ [facility] 07/28/25 Gabapentin (Gabapentin) 300 Mg Cap, 1 CAP PO TID, #63 CAP 0 Refills Prov:GEOVANNY MELENDEZ [facility] 05/05/25 Sertraline Hcl (Zoloft) 50 Mg Tab, 1 TAB PO DAILY, #21 TAB 0 Refills Prov:GEOVANNY MELENDEZ [facility] 05/05/25 Diazepam (Diazepam) 10 Mg Tab, 1 TAB PO BID for 7 Days, #14 TAB Prov:REY CERON MD 04/22/25 Information Source: Patient, Emergency Med Personnel Mode of Arrival: EMS Past Medical History PAST MEDICAL HISTORY: Anxiety, HTN Past Medical History (Other): Chronic alcoholism Surgical History: Tonsillectomy Family History Family History: Reviewed,noncontributory to illness Social History Smoker: Non-Smoker Alcohol: Heavy Drugs: Denies Drug Use Lives In: Home Constitutional: denies: chills, diaphoresis, fatigue, fever, malaise, sweats, weakness, others EENTM: denies: blurred vision, double vision, ear bleeding, ear discharge, ear drainage, ear pain, ear ringing, eye pain, eye redness, hearing loss, mouth pain, mouth swelling, nasal discharge, nose bleeding, nose congestion, nose pain, photophobia, tearing, throat pain, throat swelling, voice changes, others Respiratory: denies: cough, hemoptysis, orthopnea, SOB at rest, shortness of breath, SOB with excertion, stridor, wheezing, others Cardiovascular: denies: chest pain, dizzy spells, diaphoresis, Dyspnea on exertion, edema, irregular heart beat, left arm pain, lightheadedness, palpitations, PND, syncope, others Gastrointestinal: reports: nausea, vomiting; denies: abdomen distended, abdominal pain, blood streaked bowels, constipated, diarrhea, dysphagia, difficulty swallowing, hematemesis, melena, poor appetite, poor fluid intake, rectal bleeding, rectal pain, others Genitourinary: denies: burning, dysuria, flank pain, frequency, hematuria, incontinence, penile discharge, penile sore, pain, testicle pain, testicle swelling, urgency, others Neurological: reports: tremors; denies: dizziness, fainting, headache, left sided numbness, left sided weakness, numbness, paresthesia, pre-existing deficit, right sided numbness, right sided weakness, seizure, speech problems, tingling, weakness, others Musculoskeletal: denies: back pain, gout, joint pain, joint swelling, muscle pain, muscle stiffness, neck pain, others Integumetry: denies: bruises, change in color, change in hair/nails, dryness, laceration, lesions, lumps, rash, wounds, others Allergic/Immunocompromised: denies: Difficulty Healing, Frequent Infections, Hives, Itching, others Hematologic/Lymphatic: denies: anemia, blood clots, easy bleeding, easy b ruising, swollen glands, others Endocrine: denies: excessive hunger, excessive sweating, excessive thirst, excessive urination, flushing, intolerance to cold, intolerance to heat, unexplained weight gain, unexplained weight loss, others Psychiatric: reports: anxiety; denies: bipolar disorder, depression, hopeless, panic disorder, schizophrenia, sleepless, suicidal, others Physical Exam General Appearance: No Apparent Distress, Normal HEENT: Normal ENT Inspection, Pharynx Normal, TMs Normal Neck: Full Range of Motion, Non-Tender, Normal, Normal Inspection Respiratory: Chest Non-Tender, Lungs Clear, No Accessory Muscle Use, No Respiratory Distress, Normal Breath Sounds Cardiovascular: No Edema, No JVD, No Murmur, No Gallop, Normal Peripheral Pulses, Regular Rate/Rhythm Breast Exam: Deferred Gastrointestinal: No Organomegaly, Non Tender, No Pulsatile Mass, Normal Bowel Sounds, Soft Genitalia: Deferred Pelvic: Deferred Rectal: Deferred Extremities: No calf tenderness, Normal capillary refill, Normal inspection, Normal range of motion, Non-tender, No pedal edema Musculoskeletal : Apperance: Normal Neurologic: Alert, quality assurance clerk II-XII nml as Tested, No Motor Deficits, Normal Affect, Normal Mood, No Sensory Deficits Cerebellar Function: Normal Reflexes: Normal Skin: Dry, Normal Color, Warm Lymphatic: No Adenopathy Was a procedure done? Was a procedure done?: No Differential Dx Considerations may include: Anxiety. Chronic alcoholism. Alcohol withdrawals X-Ray, Labs, Meds, VS Vital Signs Date Time Temp Pulse Resp B/P (MAP) Pulse Ox O2 Delivery O2 Flow Rate FiO2 10/28/25 03:22 92 20 95 Room Air* 0 21 10/28/25 03:22 99.0 92 20 134/82 (99) 95 99.0 10/28/25 03:21 98.6 103 24 144/86 96 98.6 Lab Test 10/28/25 03:23 Range/Units White Blood Count 4.3 L 4.4-10.8 10^3/uL Red Blood Count 4.57 4.5-5.90 10^6/uL Hemoglobin 14.5 13.5-17.5 g/dL Hematocrit 42.4 41.0-53.0 % Mean Corpuscular Volume 92.7 80.0-100.0 fL Mean Corpuscular Hemoglobin 31.8 28.0-32.0 pg Mean Corpuscular Hemoglobin Concent 34.3 32.0-36.0 g/dL Red Cell Distribution Width 15.1 H 11.8-14.3 % Platelet Count 125 L 140-450 10^3/uL Mean Platelet Volume 7.6 6.9-10.8 fL Neutrophils (%) (Auto) 69.8 37.0-80.0 % Lymphocytes (%) (Auto) 17.5 10.0-50.0 % Monocytes (%) (Auto) 12.0 0.0-12.0 % Eosinophils (%) (Auto) 0.2 0.0-7.0 % Basophils (%) (Auto) 0.5 0.0-2.0 % Neutrophils # (Auto) 3.0 1.6-8.6 10 ^3/uL Lymphocytes # (Auto) 0.8 0.4-5.4 10 ^3/uL Monocytes # (Auto) 0.5 0-1.3 10 ^3/uL Eosinophils # (Auto) 0 0-0.8 10 ^3/uL Basophils # (Auto) 0 0-0.2 10 ^3/uL Nucleated Red Blood Cells 0.1 % Sodium Level 146 H 136-145 mmol/L Potassium Level 3.1 L 3.5-5.1 mmol/L Chloride Level 105 98-107 mmol/L Carbon Dioxide Level 26 20-31 mmol/L Anion Gap 15 5-15 Blood Urea Nitrogen < 5 L 9-23 mg/dL Creatinine 0.64 L 0.700-1.30 mg/dL Glomerular Filtration Rate Calc 137 >90 mL/min BUN/Creatinine Ratio 7.8 L 10.0-20.0 Serum Glucose 94 74-106 mg/dL Calcium Level 8.4 L 8.7-10.4 mg/dL Total Bilirubin 2.3 H 0.2-1.0 mg/dL Aspartate Amino Transferase (AST) 153 H 13-40 U/L Alanine Aminotransferase (ALT) 19 7-40 U/L Alkaline Phosphatase 115 46-116 U/L Total Protein 7.3 5.7-8.2 g/dL Albumin 3.7 3.2-4.8 g/dL Salicylates Level < 3.0 -30 mg/dL Acetaminophen Level < 2.0 L 10.0-20.0 UG/ML Plasma/Serum Blood Alcohol 84.9 H <10 mg/dL Current Medications Medications (Trade) Dose Ordered Sig/Nasra Route Start Time Stop Time Status Last Admin Sodium Chloride 1,000 ml @ 1,000 mls/hr Q1H ONCE IVB 10/28/25 03:15 10/28/25 04:14 DC 10/28/25 03:36 Lorazepam (Ativan Inj) 2 mg ONCE ONCE IV 10/28/25 03:15 10/28/25 03:16 DC 10/28/25 03:36 Potassium Chloride (Klor-Con Tablet) 20 meq ONCE ONCE PO 10/28/25 04:30 10/28/25 04:31 DC 10/28/25 04:48 Time of 1ST Reevaluation: 03:17 Reevaluation 1ST: Unchanged Patient Education/Counseling: Diagnosis, Treatment Family Education/Counseling: No Family Present SEPSIS Sepsis Screen Physician Orders Drug Screen (10/28/25 03:13) Urinalysis (10/28/25 03:13) Vital Signs Date Time Temp Pulse Resp B/P (MAP) Pulse Ox O2 Delivery O2 Flow Rate FiO2 10/28/25 03:22 92 20 95 Room Air* 0 21 10/28/25 03:22 99.0 92 20 134/82 (99) 95 99.0 10/28/25 03:21 98.6 103 24 144/86 96 98.6 Laboratory Tests Test 10/28/25 03:23 White Blood Count 4.3 10^3/uL (4.4-10.8) L Medications Medications Dose Ordered Sig/Nasra Route Start Time Stop Time Status Last Admin Dose Admin Lorazepam 2 mg ONCE ONCE IV 10/28/25 03:15 10/28/25 03:16 DC 10/28/25 03:36 Potassium Chloride 20 meq ONCE ONCE PO 10/28/25 04:30 10/28/25 04:31 DC 10/28/25 04:48 Sodium Chloride 1,000 ml @ 1,000 mls/hr Q1H ONCE IVB 10/28/25 03:15 10/28/25 04:14 DC 10/28/25 03:36 Departure 1 Departure Time of Disposition: 04:54 Impression: Primary Impression: Alcohol dependence Additional Impressions: Alcohol abuse Alcohol withdrawal Disposition: 02 SHORT TERM HOSPITAL Admit to: Med Surg Condition: Serious Comments 20 yo male with h/o Etoh abuse now with N/V and shaky and difficulty ambulating after he tried to reduce his Etoh intake x 1 day. His CIWA score: CIWA-Ar for Alcohol Withdrawal from [facility] on 10/28/2025 RESULT SUMMARY: 22 points Patients with scores greater than 20 frequently require medication for withdrawal, and may also require admission to the ICU for observation for seizures or development of delirium tremens, and more frequent medication dosing. INPUTS: Nausea/vomiting > 3 = (More severe symptoms) Tremor > 3 = (More severe symptoms) Paroxysmal sweats > 3 = (More severe symptoms) Anxiety > 3 = (More severe symptoms) Agitation > 3 = (More severe symptoms) Tactile disturbances > 2 = Mild itching, pin and needles, burning, or numbness Auditory disturbances > 1 = Very mild harshness or ability to frighten Visual disturbances > 1 = Very mild sensitivity Headache/fullness in head > 3 = Moderate Orientation/clouding of sensorium > 0 = Oriented, can do serial additions Given IV fluids and ativan. will need admit or transfer for inpatient care. will call [facility] for authorization Critical Care Note Critical Care Time?: Yes (35 min-critical care time only) Critical care comment: Total critical care time: Approximately 36 minutes Due to a high probability of clinically significant, life threatening deterioration, the patient required my highest level of preparedness to intervene emergently and I personally spent this critical care time directly and personally managing the patient. This critical care time included obtaining a history; examining the patient; pulse oximetry; ordering and review of studies; arranging urgent treatment with development of a management plan; evaluation of patient's response to treatment; frequent reassessment; and, discussions with other providers. This critical care time was performed to assess and manage the high probability of imminent, life-threatening deterioration that could result in multi-organ failure. It was exclusive of separately billable procedures and treating other patients. Stability Stability form required: No Heart Score Heart Score: Heart Score Response (Comments) Value History N/A 0 EKG N/A 0 Age N/A 0 Risk Factors N/A 0 Troponin N/A 0 Total 0 I personally scribed for ALONDRA MARTIN MD ([email or web address]) on 10/28/25 at 03:20. Electronically submitted by [facility] Ulloa ([facility]). ALONDRA MARTIN MD Oct 28, 2025 03:20
[2025-10-28 03:22] VITALS: PULSE 92; RESP 20; O2SAT 95
[2025-10-28] MEDS: SODIUM CHLORIDE 0.9% 1,000 ML IVB ONE (03:36)
[2025-10-28] MEDS: LORazepam 2MG/ML-1ML VIAL IV ONE (03:36)
[2025-10-28 04:00] LABS: Hematocrit 42.4 % (41.0-53.0); Hemoglobin 14.5 g/dL (13.5-17.5); Mean Corpuscular Hemoglobin 31.8 pg (28.0-32.0); Mean Corpuscular Volume 92.7 fL (80.0-100.0); Nucleated Red Blood Cells % 0.1 %
[2025-10-28 04:17] LABS: Alanine Aminotransferase 19 U/L (7-40); Albumin 3.7 g/dL (3.2-4.8); Alkaline Phosphatase 115 U/L (46-116); Anion Gap 15 (5-15); Carbon Dioxide 26 mmol/L (20-31); Chloride 105 mmol/L (98-107); Glucose 94 mg/dL (74-106); Total Protein 7.3 g/dL (5.7-8.2)
[2025-10-28 04:18] LABS: Salicylate < 3.0 mg/dL (-30)
[2025-10-28 04:19] LABS: BUN/Creatinine Ratio 7.8 (10.0-20.0); Bilirubin, Total 2.3 mg/dL (0.2-1.0); Blood Urea Nitrogen < 5 mg/dL (9-23); Calcium 8.4 mg/dL (8.7-10.4); Potassium 3.1 mmol/L (3.5-5.1); Sodium 146 mmol/L (136-145)
[2025-10-28 04:22] LABS: Acetaminophen < 2.0 UG/ML (10.0-20.0)
[2025-10-28] MEDS: POTASSIUM CHL 20 Meq TABLET PO ONE (04:48)
[2025-10-28 05:03] LABS: Urine Protein, UAD Negative (Negative)
[2025-10-28 05:17] LABS: Amphetamine Screen, Urine Neg (NEGATIVE); Barbiturate Scree,Urine Neg (NEGATIVE); Benzodiazephine Screen, Urine Pos (NEGATIVE); Cannabinoid Screen, Urine Neg (NEGATIVE); Cocaine Screen, Urine Neg (NEGATIVE); Opiate Scree,Urine Neg (NEGATIVE); Phencyclidine Screen, Urine Neg (NEGATIVE)
[2025-10-28 06:40] VITALS: BP 141/90; PULSE 91; RESP 18; TEMP 98; O2SAT 95
== END 2025-10-28 04:53 | disposition short-term general hospital (02) ==
LOC: EDBD 03:01 → ER 03:01
DX: F10.239 Alcohol dependence with withdrawal, unspecified (principal); I10 Essential (primary) hypertension; F41.9 Anxiety disorder, unspecified; Z79.899 Other long term (current) drug therapy; Z90.89 Acquired absence of other organs; Y90.4 Blood alcohol level of 80-99 mg/100 ml
CPT/HCPCS: 36415; 80053; 80307; 80320; 80329; 81001; 85025; 96361; 96374; 99291; J2060; J7030